=== PATIENT | male | born 1965 | race African-American/Black ===

== ENCOUNTER 2018-11-07 08:21 | Inpatient (IN) | payer OTHER ==
[2018-11-07 09:20] VITALS: BMI 21.8
--- NOTE | 2018-11-07 09:46 | HP ---
COWS - Scale Resting Pulse: 0= [place] 80 or Below Sweatin= Chills/Flushing Restless Observation: 3= Extraneous Movement Pupil Size: 1= Pupils >than Normal Bone or Joint Aches: 2= Severe Diffuse Aches Runny Nose/ Eye Tearin= Runny Nose/Eyes GI Upset > 30mins: 2= Nausea/Diarrhea Tremor Observation: 1= Tremor Xenia, Not Seen Yawning Observation: 1= 1-2x During Session Anxiety or Irritability: 2=Irritable/Anxious Goose Flesh Skin: 0=Smooth Skin COWS Score: 15 CIWA Score - Admission Criteria OASAS Guidelines: Admission for Medically Managed Detox: Requires at least one of the followin. CIWA greater than 12 2. Seizures within the past 24 hours 3. Delirium tremens within the past 24 hours 4. Hallucinations within the past 24 hours 5. Acute intervention needed for co occurring medical disorder 6. Acute intervention needed for co occurring psychiatric disorder 7. Severe withdrawal that cannot be handled at a lower level of care (continued vomiting, continued diarrhea, abnormal vital signs) requiring intravenous medication and/or fluids 8. Admission ROS S - HPI Chief Complaint: i need help help to stop using heroin Allergies/Adverse Reactions: Allergies Allergy/AdvReac Type Severity Reaction Status Date / Time lactose Allergy Verified 11/07/18 10:14 No Known Drug Allergies Allergy Verified 11/07/18 10:15 History of Present Illness: this 52 years old male with heroin dependence,seeking detox,withdrawal symptom, never been in detox before, hypertension on med nicotine dependence 1 pack/day, plan out patient program after detox Exam Limitations: No Limitations - Ebola screening Have you traveled outside of the country in the last 21 days: No (N) Have you had contact with anyone from an Ebola affected area: No Do you have a fever: No - Review of Systems Constitutional: Chills, Loss of Appetite, Malaise, Night Sweats, Changes in sleep, Weakness, Unintentional Wgt. Loss EENT: reports: Tearing, Nose Congestion Respiratory: reports: No Symptoms reported Cardiac: reports: No Symptoms Reported, Other (implanted defibrillator in 2013) GI: reports: Nausea, Poor Appetite, Vomiting, Abdominal cramping : reports: No Symptoms Reported Musculoskeletal: reports: Back Pain, Muscle Pain Integumentary: reports: Dryness Neuro: reports: Headache, Tremors Endocrine: reports: No Symptoms Reported Hematology: reports: No Symptoms Reported Psychiatric: reports: No Sypmtoms Reported, Judgement Intact, Mood/Affect Appropiate, Orientated x3 Patient History - Patient Medical History Hx Anemia: No Hx Asthma: No Hx Chronic Obstructive Pulmonary Disease (COPD): No Hx Cancer: No Hx Cardiac Disorders: Yes (cardiomyopathy,implanted defibrillator) Hx Congestive Heart Failure: No Hx Hypertension: Yes Hx Hypercholesterolemia: Yes HX Cerebrovascular Accident: Yes (06/2014 left side) Hx Seizures: No Hx Dementia: No Hx Diabetes: No Hx Gastrointestinal Disorders: No Hx Liver Disease: No Hx Genitourinary Disorders: No Hx Sexually Transmitted Disorders: No Hx Renal Disease (ESRD): No Hx Thyroid Disease: No Hx Human Immunodeficiency Virus (HIV): No (last 09/12) Hx Hepatitis C: No Hx Depression: No Hx Suicide Attempt: No Hx Bipolar Disorder: No Hx Schizophrenia: No Other Medical History: no suicidal,no homicidal - Patient Surgical History Past Surgical History: Yes Hx Orthopedic Surgery: Yes (right shuolder ) Anesthesia Reaction: No - PPD History Previous Implant?: Yes Documented Results: Negative w/o proof Implanted On Prior [facility] Admission?: No PPD to be Administered?: Yes - Smoking Cessation Smoking history: Current every day smoker Have you smoked in the past 12 months: Yes Aproximately how many cigarettes per day: 20 Hx Chewing Tobacco Use: No Initiated information on smoking cessation: Yes 'Breaking Loose' booklet given: 11/07/18 - Substance & Tx. History Hx Alcohol Use: No Hx Substance Use: Yes Substance Use Type: Heroin Hx Substance Use Treatment: No - Substances abused Heroin Substance route: Inhalation Frequency: Daily Amount used: half a gram Age of first use: 20 Date of last use: 11/06/18 Family Disease History - Family Disease History Family History: Denies Admission Physical Exam BHS - Vital Signs Vital Signs: Vital Signs - 24 hr 11/07/18 11/07/18 09:12 09:27 Temperature 97.5 F L 97.5 F L Pulse Rate 66 66 Respiratory 16 16 Rate Blood Pressure 131/89 131/89 - Physical General Appearance: Yes: Moderate Distress, Tremorous, Irritable, Sweating, Anxious HEENTM: Yes: Normal ENT Inspection, MAILE, Tm's normal Respiratory: Yes: Within Normal Limits, Lungs Clear, Normal Breath Sounds Neck: Yes: Within Normal Limits, Supple, Trachea in good position Breast: Yes: Within Normal Limits Cardiology: Yes: Within Normal Limits, Regular Rhythm, Regular Rate, S1, S2, Other (implanted defibrillatior in 2013) Abdominal: Yes: Within Normal Limits, Normal Bowel Sounds, Non Tender, Flat, Soft Genitourinary: Yes: Within Normal Limits Back: Yes: Within Normal Limits Musculoskeletal: Yes: Back pain, Muscle Pain Extremities: Yes: Tremors, Other (removal of skin cancer in 2015 left index) Neurological: Yes: spice mixer II-XII NML intact, Fully Oriented, Alert, Motor Strength 5/5 Integumentary: Yes: Dry, Other Lymphatic: Yes: Within Normal Limits - Diagnostic (1) Opioid dependence with withdrawal Current Visit: Yes Status: Acute (2) Essential hypertension Current Visit: Yes Status: Acute (3) Nicotine dependence Current Visit: Yes Status: Acute (4) Weight loss Current Visit: Yes Status: Acute (5) Dehydration Current Visit: Yes Status: Acute (6) Old cerebrovascular accident (CVA) without late effect Current Visit: Yes Status: Acute (7) Cardiac defibrillator in place Current Visit: Yes Status: Acute (8) History of skin cancer Current Visit: Yes Status: Acute Cleared for Admission S - Detox or Rehab [facility] Level of Care: Medically Managed Detox Regimen/Protocol: Methadone Breathalyzer - Breathalyzer Breathalyzer: 0 Urine Drug Screen - Test Device Lot number: [id number] Expiration date: 06/23/20 - Control Is test valid?: Yes - Results Drug screen NEGATIVE: No Urine drug screen results: DALTON-Cocaine, MOP-Opiates Inpatient Rehab Admission - Rehab Decision to Admit Inpatient rehab admission?: No
[2018-11-07] MEDS ORDERED: BISMUTH SUBSALICYLATE 262 MG/15 ML BTL PO PRN (10:00)
[2018-11-07] MEDS ORDERED: cloNIDine HCL 0.1 MG TABLET PO PRN (10:00)
[2018-11-07] MEDS ORDERED: MENTHOL/PHENOL 1 EACH UD MM PRN (10:00)
[2018-11-07] MEDS ORDERED: hydrOXYzine PAMOATE 25 MG CAPSULE (FP) PO PRN (10:00)
[2018-11-07] MEDS ORDERED: ACETAMINOPHEN 325 MG TABLET (FP) PO PRN ×2 (10:00)
[2018-11-07] MEDS ORDERED: METHOCARBAMOL 500 MG TABLET PO PRN (10:00)
[2018-11-07] MEDS ORDERED: MAGNESIUM HYDROX 2400MG/30ML ORAL SUSPENSION 30 ML CUP PO PRN (10:00)
[2018-11-07] MEDS ORDERED: MAG HYDROX/AL HYDROX/SIMETH 30 ML UNIT-DOSE CUP PO PRN (10:00)
[2018-11-07] MEDS ORDERED: MAGNESIUM CITRATE 300 ML BOTTLE PO PRN (10:00)
[2018-11-07] MEDS ORDERED: IBUPROFEN 400 MG TABLET (FP) PO PRN (10:00)
[2018-11-07] MEDS ORDERED: METHADONE HCL 10 MG TABLET (FOR DETOX USE ONLY) PO ONE ×2 (10:30→23:00)
--- NOTE | 2018-11-07 10:55 | EKG ---
Test Reason : Blood Pressure : / mmHG Vent. Rate : 056 BPM Atrial Rate : 056 BPM P-R Int : 174 ms QRS Dur : 090 ms QT Int : 430 ms P-R-T Axes : 062 016 040 degrees QTc Int : 414 ms SINUS BRADYCARDIA OTHERWISE NORMAL ECG WHEN COMPARED WITH ECG OF 06-JUL-2014 20:12, ST NO LONGER DEPRESSED IN INFERIOR LEADS ST NO LONGER DEPRESSED IN LATERAL LEADS T WAVE INVERSION NO LONGER EVIDENT IN LATERAL LEADS Confirmed by MD Renetta, Rigo ([id number]) on 11/07/2018 10:55:46 AM Referred By: Confirmed By:Rigo Jackson MD
[2018-11-07] MEDS: PRENATAL VITAMINS W/ FOLIC ACID TABLET (FP) PO SCH (10:59)
[2018-11-07 15:39] LABS: SICKLE CELL SCREEN NEGATIVE (NEGATIVE)
[2018-11-07 15:48] LABS: INR 1.08 (0.83-1.09); PROTHROMBIN TIME (PATIENT) 12.7 SEC (9.7-13.0)
[2018-11-07 15:49] LABS: ALBUMIN 3.7 g/dl (3.4-5.0); ALK PHOS 51 U/L (45-117); ANION GAP 3 MMOL/L (8-16); BILIRUBIN,TOTAL 0.6 mg/dL (0.2-1); BLOOD UREA NITROGEN 15 mg/dL (7-18); CALCIUM 9.3 mg/dL (8.5-10.1); CHLORIDE 103 mmol/L (98-107); CO2 31 mmol/L (21-32); CREATININE 1.1 mg/dL (0.55-1.3); GLUCOSE,RANDOM 92 mg/dL (74-106); POTASSIUM 3.7 mmol/L (3.5-5.1); SGOT/AST 12 U/L (15-37); SGPT/ALT 18 U/L (13-61); SODIUM 138 mmol/L (136-145)
[2018-11-07] MEDS: NICOTINE POLACRILEX 2 MG GUM BUC PRN (17:51)
[2018-11-07] MEDS ORDERED: WARFARIN NA 5 MG TABLET (UD) PO SCH (18:00)
[2018-11-07 18:30] LABS: HEMATOCRIT 40.5 % (35.4-49); HEMOGLOBIN 13.5 GM/dL (11.7-16.9); MCH 31.3 pg (25.7-33.7); MCHC 33.4 g/dl (32.0-35.9); MEAN CELL VOLUME 93.6 fl (80-96); MEAN PLT VOLUME 8.3 fl (7.5-11.1); PLATELET COUNT 191 K/MM3 (134-434); RBC 4.33 M/mm3 (4.00-5.60); RDW 13.5 % (11.9-15.9); WHITE BLOOD COUNT 4.6 K/mm3 (4.0-10.0)
[2018-11-07] MEDS: THIAMINE HCL 100 MG TABLET (FP) PO SCH (22:08)
[2018-11-07] MEDS: diazePAM 5 MG TABLET PO PRN (22:09)
[2018-11-08] MEDS: diazePAM 5 MG TABLET PO PRN ×2 (08:47→13:30)
[2018-11-08] MEDS ORDERED: METHADONE HCL 10 MG TABLET (FOR DETOX USE ONLY) PO ONE (10:00)
[2018-11-08] MEDS: PRENATAL VITAMINS W/ FOLIC ACID TABLET (FP) PO SCH (10:15)
[2018-11-08] MEDS: ASPIRIN 81 MG CHEWABLE TABLETS PO SCH (10:15)
[2018-11-08] MEDS: LISINOPRIL 10 MG TABLET (FP) PO SCH (10:16)
[2018-11-08] MEDS: NICOTINE POLACRILEX 2 MG GUM BUC PRN (13:27)
--- NOTE | 2018-11-08 14:46 | PN ---
BHS COWS - Scale Resting Pulse: 0= [place] 80 or Below Sweatin= Chills/Flushing Restless Observation: 0= Sits Still Pupil Size: 1= Pupils >than Normal Bone or Joint Aches: 1= Mild Discomfort Runny Nose/ Eye Tearin= Nasal Congestion GI Upset > 30mins: 1= Stomach Cramp Tremor Observation of Outstretched Hands: 2= Slight Tremor Visible Yawning Observation: 2= >3x During Session Anxiety or Irritability: 2=Irritable/Anxious Goose Flesh Skin: 0=Smooth Skin COWS Score: 11 BHS Progress Note (SOAP) Subjective: patient stated that he is living at [place] came to [place] 'Month" ago patient has a primary care provider at [place] x 3 years compliance with medication patient has defebrilator implanted on 2013 treated with coumadin but months ago his primary care provider change to eliquis 5 mg bid and he is taking that ever since tolerate well Objective: 11/08/18 15:16 Vital Signs Temperature 97.7 F 11/08/18 13:15 Pulse Rate 55 L 11/08/18 13:15 Respiratory Rate 18 11/08/18 13:15 Blood Pressure 137/96 11/08/18 13:15 O2 Sat by Pulse Oximetry (%) Laboratory Last Values WBC 4.6 K/mm3 (4.0-10.0) 11/07/18 10:00 RBC 4.33 M/mm3 (4.00-5.60) 11/07/18 10:00 Hgb 13.5 GM/dL (11.7-16.9) 11/07/18 10:00 Hct 40.5 % (35.4-49) 11/07/18 10:00 MCV 93.6 fl (80-96) 11/07/18 10:00 MCH 31.3 pg (25.7-33.7) 11/07/18 10:00 MCHC 33.4 g/dl (32.0-35.9) 11/07/18 10:00 RDW 13.5 % (11.9-15.9) D 11/07/18 10:00 Plt Count 191 K/MM3 (134-434) 11/07/18 10:00 MPV 8.3 fl (7.5-11.1) D 11/07/18 10:00 Sickle Cell Screen Negative (NEGATIVE) 11/07/18 10:00 PT with INR 12.70 SEC (9.7-13.0) 11/07/18 10:00 INR 1.08 (0.83-1.09) 11/07/18 10:00 Sodium 138 mmol/L (136-145) 11/07/18 10:00 Potassium 3.7 mmol/L (3.5-5.1) 11/07/18 10:00 Chloride 103 mmol/L (98-107) 11/07/18 10:00 Carbon Dioxide 31 mmol/L (21-32) 11/07/18 10:00 Anion Gap 3 MMOL/L (8-16) L 11/07/18 10:00 BUN 15 mg/dL (7-18) 11/07/18 10:00 Creatinine 1.1 mg/dL (0.55-1.3) 11/07/18 10:00 Creat Clearance w eGFR 70.29 (>60) 11/07/18 10:00 Random Glucose 92 mg/dL (74-106) 11/07/18 10:00 Calcium 9.3 mg/dL (8.5-10.1) 11/07/18 10:00 Total Bilirubin 0.6 mg/dL (0.2-1) 11/07/18 10:00 AST 12 U/L (15-37) L 11/07/18 10:00 ALT 18 U/L (13-61) 11/07/18 10:00 Alkaline Phosphatase 51 U/L (45-117) 11/07/18 10:00 Total Protein 7.0 g/dl (6.4-8.2) 11/07/18 10:00 Albumin 3.7 g/dl (3.4-5.0) 11/07/18 10:00 RPR Titer Nonreactive (NONREACTIVE) 11/07/18 10:00 lab noted Assessment: 11/08/18 15:16 withdrawal sx Plan: continue detox
[2018-11-08] MEDS ORDERED: ASPIRIN 81 MG CHEWABLE TABLETS PO SCH (15:00)
[2018-11-08] MEDS: metoPROLOL SUCCINATE 25 MG TAB.SR.24H (FP) PO SCH (15:53)
[2018-11-08] MEDS: MELATONIN 5 MG TABLETS PO PRN (22:05)
[2018-11-08] MEDS: THIAMINE HCL 100 MG TABLET (FP) PO SCH (22:05)
[2018-11-08] MEDS: APIXABAN 5 MG TABLET PO SCH (22:05)
[2018-11-09] MEDS ORDERED: METHADONE HCL 10 MG TABLET (FOR DETOX USE ONLY) PO ONE (10:00)
[2018-11-09] MEDS: ASPIRIN 81 MG CHEWABLE TABLETS PO SCH (10:25)
[2018-11-09] MEDS: LISINOPRIL 10 MG TABLET (FP) PO SCH (10:25)
[2018-11-09] MEDS: metoPROLOL SUCCINATE 25 MG TAB.SR.24H (FP) PO SCH (10:25)
[2018-11-09] MEDS: PRENATAL VITAMINS W/ FOLIC ACID TABLET (FP) PO SCH (10:25)
[2018-11-09] MEDS: diazePAM 5 MG TABLET PO PRN ×2 (10:27→19:59)
[2018-11-09] MEDS: APIXABAN 5 MG TABLET PO SCH ×2 (11:22→21:28)
[2018-11-09] MEDS: NICOTINE POLACRILEX 2 MG GUM BUC PRN (11:24)
--- NOTE | 2018-11-09 12:26 | PN ---
BHS COWS - Scale Resting Pulse: 0= [place] 80 or Below Sweatin= Chills/Flushing Restless Observation: 0= Sits Still Pupil Size: 0= Normal to Room Light Bone or Joint Aches: 0= None Runny Nose/ Eye Tearin= Nasal Congestion GI Upset > 30mins: 0= None Tremor Observation of Outstretched Hands: 2= Slight Tremor Visible Yawning Observation: 1= 1-2x During Session Anxiety or Irritability: 2=Irritable/Anxious Goose Flesh Skin: 3=Piloerection COWS Score: 10 BHS Progress Note (SOAP) Subjective: hot / Cold Sensations, Interrupted Sleep, Tremors. Objective: PATIENT A & O X 2 (UNCERTAIN ABOUT CURRENT DAY / DATE). IN NO ACUTE DISTRESS. 11/09/18 12:24 Vital Signs Temperature 97.8 F 11/09/18 09:17 Pulse Rate 74 11/09/18 09:17 Respiratory Rate 18 11/09/18 09:17 Blood Pressure 125/86 11/09/18 09:17 O2 Sat by Pulse Oximetry (%) Laboratory Tests 11/07/18 11/07/18 11/07/18 10:00 10:00 10:00 WBC 4.6 RBC 4.33 Hgb 13.5 Hct 40.5 MCV 93.6 MCH 31.3 MCHC 33.4 RDW 13.5 D Plt Count 191 MPV 8.3 D Sickle Cell Screen Negative PT with INR 12.70 INR 1.08 Sodium 138 Potassium 3.7 Chloride 103 Carbon Dioxide 31 Anion Gap 3 L BUN 15 Creatinine 1.1 Creat Clearance w eGFR 70.29 Random Glucose 92 Calcium 9.3 Total Bilirubin 0.6 AST 12 L ALT 18 Alkaline Phosphatase 51 Total Protein 7.0 Albumin 3.7 RPR Titer 11/07/18 10:00 WBC RBC Hgb Hct MCV MCH MCHC RDW Plt Count MPV Sickle Cell Screen PT with INR INR Sodium Potassium Chloride Carbon Dioxide Anion Gap BUN Creatinine Creat Clearance w eGFR Random Glucose Calcium Total Bilirubin AST ALT Alkaline Phosphatase Total Protein Albumin RPR Titer Nonreactive LABS NOTED. Assessment: 11/09/18 12:25 WITHDRAWAL SYMPTOMS. Plan: CONTINUE DETOX. INCREASE DAILY PO FLUID INTAKE.
[2018-11-09] MEDS: MELATONIN 5 MG TABLETS PO PRN (21:28)
[2018-11-09] MEDS: THIAMINE HCL 100 MG TABLET (FP) PO SCH (21:29)
[2018-11-10] MEDS ORDERED: METHADONE HCL 10 MG TABLET (FOR DETOX USE ONLY) PO ONE (10:00)
[2018-11-10] MEDS: LISINOPRIL 10 MG TABLET (FP) PO SCH (10:10)
[2018-11-10] MEDS: ASPIRIN 81 MG CHEWABLE TABLETS PO SCH (10:10)
[2018-11-10] MEDS: metoPROLOL SUCCINATE 25 MG TAB.SR.24H (FP) PO SCH (10:10)
[2018-11-10] MEDS: PRENATAL VITAMINS W/ FOLIC ACID TABLET (FP) PO SCH (10:10)
[2018-11-10] MEDS: APIXABAN 5 MG TABLET PO SCH ×2 (10:11→22:14)
--- NOTE | 2018-11-10 13:20 | PN ---
BHS COWS - Scale Resting Pulse: 0= [place] 80 or Below Sweatin= No chills or Flushing Restless Observation: 0= Sits Still Pupil Size: 0= Normal to Room Light Bone or Joint Aches: 0= None Runny Nose/ Eye Tearin= None GI Upset > 30mins: 0= None Tremor Observation of Outstretched Hands: 2= Slight Tremor Visible Yawning Observation: 1= 1-2x During Session Anxiety or Irritability: 2=Irritable/Anxious Goose Flesh Skin: 0=Smooth Skin COWS Score: 5 BHS Progress Note (SOAP) Subjective: Anxious, Tremors (Mild, Improving), Fatigue. Objective: PATIENT A & O X 3. IN NO ACUTE DISTRESS. 11/10/18 13:18 Vital Signs Temperature 98.7 F 11/10/18 13:06 Pulse Rate 65 11/10/18 13:06 Respiratory Rate 18 11/10/18 13:06 Blood Pressure 114/80 11/10/18 13:06 O2 Sat by Pulse Oximetry (%) Laboratory Tests 11/07/18 11/07/18 11/07/18 10:00 10:00 10:00 WBC 4.6 RBC 4.33 Hgb 13.5 Hct 40.5 MCV 93.6 MCH 31.3 MCHC 33.4 RDW 13.5 D Plt Count 191 MPV 8.3 D Sickle Cell Screen Negative PT with INR 12.70 INR 1.08 Sodium 138 Potassium 3.7 Chloride 103 Carbon Dioxide 31 Anion Gap 3 L BUN 15 Creatinine 1.1 Creat Clearance w eGFR 70.29 Random Glucose 92 Calcium 9.3 Total Bilirubin 0.6 AST 12 L ALT 18 Alkaline Phosphatase 51 Total Protein 7.0 Albumin 3.7 RPR Titer 11/07/18 10:00 WBC RBC Hgb Hct MCV MCH MCHC RDW Plt Count MPV Sickle Cell Screen PT with INR INR Sodium Potassium Chloride Carbon Dioxide Anion Gap BUN Creatinine Creat Clearance w eGFR Random Glucose Calcium Total Bilirubin AST ALT Alkaline Phosphatase Total Protein Albumin RPR Titer Nonreactive LABS NOTED. Assessment: 11/10/18 13:19 WITHDRAWAL SYMPTOMS. Plan: CONTINUE DETOX. PATIENT SCHEDULED FOR D/C TOMORROW.
[2018-11-10] MEDS: THIAMINE HCL 100 MG TABLET (FP) PO SCH (22:14)
[2018-11-10] MEDS: MELATONIN 5 MG TABLETS PO PRN (22:14)
[2018-11-11] MEDS ORDERED: METHADONE HCL 5 MG TABLET (FOR DETOX USE ONLY) PO ONE (06:00)
[2018-11-11 06:01] VITALS: BP 131/88; PULSE 61; TEMP 98
--- NOTE | 2018-11-11 17:48 | DS ---
[facility] Detox Discharge Summary Admission Date: 11/07/18 Discharge Date: 11/11/18 - History Present History: Opioid Dependence Additional Comments: PATIENT REPORTS THAT HE INTENDS TO MOVE TO [facility] IN THE NEXT FEW WEEKS. PATIENT ADVISED TO CONSIDER LOCAL 12-STEP / NA OUTPATIENT SUPPORT GROUPS IN HIS LOCAL AREA AFTER HE IS SITUATED IN NEW LOCATION IN [place]. PATIENT VERBALIZED UNDERSTANDING OF RECOMMENDATION. PATIENT DECLINED OFFER OF MEDICATION PRESCRIPTION FOR HOME MEDICATION AT TIME OF DISCHARGE FROM DETOX, NOTING THAT HE CURRENTLY HAS ADEQUATE SUPPLIES OF ALL PRESCRIBED HOME MEDICATIONS AT HOME. PATIENT WAS DISCHARGED FROM DETOX UNIT IN STABLE MEDICAL CONDITION. Pertinent Past History: HTN, Hypercholesterolemia, History Of Cardiomyopathy, Cardiac Defibrillator In Place, History Of CVA (Left Side Of body Affected), Nicotine Dependence, Weight Loss, Dehydration, History of Skin Cancer. - Physical Exam Results Vital Signs: Vital Signs Temperature 98 F 11/11/18 06:01 Pulse Rate 61 11/11/18 06:01 Respiratory Rate 18 11/11/18 06:23 Blood Pressure 131/88 11/11/18 06:01 O2 Sat by Pulse Oximetry (%) Pertinent Admission Physical Exam Findings: WITHDRAWAL SYMPTOMS. Laboratory Tests 11/07/18 11/07/18 11/07/18 10:00 10:00 10:00 WBC 4.6 RBC 4.33 Hgb 13.5 Hct 40.5 MCV 93.6 MCH 31.3 MCHC 33.4 RDW 13.5 D Plt Count 191 MPV 8.3 D Sickle Cell Screen Negative PT with INR 12.70 INR 1.08 Sodium 138 Potassium 3.7 Chloride 103 Carbon Dioxide 31 Anion Gap 3 L BUN 15 Creatinine 1.1 Creat Clearance w eGFR 70.29 Random Glucose 92 Calcium 9.3 Total Bilirubin 0.6 AST 12 L ALT 18 Alkaline Phosphatase 51 Total Protein 7.0 Albumin 3.7 RPR Titer 11/07/18 10:00 WBC RBC Hgb Hct MCV MCH MCHC RDW Plt Count MPV Sickle Cell Screen PT with INR INR Sodium Potassium Chloride Carbon Dioxide Anion Gap BUN Creatinine Creat Clearance w eGFR Random Glucose Calcium Total Bilirubin AST ALT Alkaline Phosphatase Total Protein Albumin RPR Titer Nonreactive LABS NOTED. - Treatment Hospital Course: Detox Protocol Followed, Detoxed Safely, Responded well, Discharged Condition Good Patient has Accepted a Rehab Referral to: PT. MOVING TO [place]-ADVISED TO CONSIDER LOCAL 12-STEP/NA PROGRAMS - Medication Discharge Medications: Ambulatory Orders Lisinopril [Prinivil] 10 mg PO DAILY #30 tablet 07/05/14 Warfarin Na [Coumadin -] 5 mg PO DAILY@1800 #30 tablet 07/05/14 Aspirin [ASA -] 81 mg PO DAILY 11/07/18 Apixaban [Eliquis -] 5 mg PO BID 11/08/18 Metoprolol Succinate [Toprol Xl -] 25 mg PO DAILY 11/08/18 - Diagnosis (1) Cardiac defibrillator in place Status: Acute (2) Dehydration Status: Acute (3) HTN (hypertension) Status: Acute Qualifiers: Hypertension type: unspecified Qualified Code(s): I10 - Essential (primary ) hypertension (4) History of skin cancer Status: Acute (5) Old cerebrovascular accident (CVA) without late effect Status: Acute (6) Opioid dependence with withdrawal Status: Acute (7) Weight loss Status: Acute (8) Nicotine dependence Status: Acute Qualifiers: Nicotine product type: cigarettes Substance use status: uncomplicated Qualified Code(s): F17.210 - Nicotine dependence, cigarettes, uncomplicated - AMA Did Patient Leave Against Medical Advice: No
== END 2018-11-11 09:05 | disposition home or self-care (01) | DRG 773 ==
LOC: YASAS 08:21 → Y3N 10:14
PROVIDERS: ADMIT Surgery; ATTEND Surgery
PROC: HZ2ZZZZ Detoxification Services for Substance Abuse Treatment (ICD-10-PCS; principal; 2018-11-07)
DX: F11.23 Opioid dependence with withdrawal (principal); F17.210 Nicotine dependence, cigarettes, uncomplicated; E86.0 Dehydration; I10 Essential (primary) hypertension; R63.4 Abnormal weight loss; I42.9 Cardiomyopathy, unspecified; E78.00 Pure hypercholesterolemia, unspecified; Z85.828 Personal history of other malignant neoplasm of skin; Z86.73 Personal history of transient ischemic attack (TIA), and cerebral infarction without residual deficits; Z95.810 Presence of automatic (implantable) cardiac defibrillator
CPT/HCPCS: 36415; 80053; 85027; 85610; 85660; 86593; 93005; 93010

== ENCOUNTER 2019-01-11 08:30 | Inpatient (IN) | payer OTHER ==
[2019-01-11 09:42] VITALS: BMI 22.6
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
[2019-01-11] MEDS ORDERED: MAGNESIUM CITRATE 300 ML BOTTLE PO PRN (11:25)
[2019-01-11] MEDS ORDERED: MELATONIN 5 MG TABLETS PO PRN (11:25)
[2019-01-11] MEDS ORDERED: MAGNESIUM HYDROX 2400MG/30ML ORAL SUSPENSION 30 ML CUP PO PRN (11:25)
[2019-01-11] MEDS ORDERED: MENTHOL/PHENOL 1 EACH UD MM PRN (11:25)
[2019-01-11] MEDS ORDERED: ACETAMINOPHEN 325 MG TABLET (FP) PO PRN ×2 (11:25)
[2019-01-11] MEDS ORDERED: MAG HYDROX/AL HYDROX/SIMETH 30 ML UNIT-DOSE CUP PO PRN (11:25)
[2019-01-11] MEDS ORDERED: NICOTINE POLACRILEX 2 MG GUM BUC PRN (11:25)
[2019-01-11] MEDS ORDERED: METHADONE HCL 10 MG TABLET (FOR DETOX USE ONLY) PO ONE (11:28)
[2019-01-11] MEDS: HYDROCHLOROTHIAZIDE 12.5 MG CAPSULE (FP) PO SCH (12:35)
[2019-01-11] MEDS: LISINOPRIL 20 MG TABLET (FP) PO SCH (12:35)
[2019-01-11] MEDS: ASPIRIN 81 MG CHEWABLE TABLETS PO SCH (12:35)
[2019-01-11] MEDS: APIXABAN 5 MG TABLET PO SCH ×2 (14:34→21:28)
[2019-01-11] MEDS: cloNIDine HCL 0.1 MG TABLET PO PRN ×2 (15:05→21:28)
[2019-01-11] MEDS: THIAMINE HCL 100 MG TABLET (FP) PO SCH (21:28)
[2019-01-11] MEDS: hydrOXYzine PAMOATE 25 MG CAPSULE (FP) PO PRN (21:28)
[2019-01-12] MEDS: hydrOXYzine PAMOATE 25 MG CAPSULE (FP) PO PRN ×2 (05:40→21:49)
[2019-01-12] MEDS ORDERED: METHADONE HCL 5 MG TABLET (FOR DETOX USE ONLY) PO ONE (10:00)
[2019-01-12] MEDS: ASPIRIN 81 MG CHEWABLE TABLETS PO SCH (10:22)
[2019-01-12] MEDS: LISINOPRIL 20 MG TABLET (FP) PO SCH (10:23)
[2019-01-12] MEDS: PRENATAL VITAMINS W/ FOLIC ACID TABLET (FP) PO SCH (10:23)
[2019-01-12] MEDS: HYDROCHLOROTHIAZIDE 12.5 MG CAPSULE (FP) PO SCH (10:23)
[2019-01-12] MEDS ORDERED: ONDANSETRON *ODT* 4 MG TABLET SL PRN (10:41)
--- NOTE | 2019-01-12 11:09 | PN ---
BHS COWS - Scale Resting Pulse: 0= [place] 80 or Below Sweatin= Chills/Flushing Restless Observation: 1= Difficult to Sit Still Pupil Size: 0= Normal to Room Light Bone or Joint Aches: 2= Severe Diffuse Aches Runny Nose/ Eye Tearin= Runny Nose/Eyes GI Upset > 30mins: 0= None Tremor Observation of Outstretched Hands: 2= Slight Tremor Visible Yawning Observation: 2= >3x During Session Anxiety or Irritability: 2=Irritable/Anxious Goose Flesh Skin: 0=Smooth Skin COWS Score: 12 BHS Progress Note (SOAP) Subjective: sweats nausea chills anxiety interrupted sleep. i need something to help me fall asleep Objective: 01/12/19 11:09 Vital Signs Temperature 97.7 F 01/12/19 10:00 Pulse Rate 63 01/12/19 10:00 Respiratory Rate 18 01/12/19 10:00 Blood Pressure 121/72 01/12/19 10:00 O2 Sat by Pulse Oximetry (%) labs pending aaox3 ambulating no acute distress Assessment: 01/12/19 11:10 withdrawal sx Plan: continue detox increase fluids trazadone 50mg qhs ordered while in our care.
[2019-01-12 11:52] LABS: HEMATOCRIT 36.6 % (35.4-49); HEMOGLOBIN 12.2 GM/dL (11.7-16.9); MCH 30.4 pg (25.7-33.7); MCHC 33.2 g/dl (32.0-35.9); MEAN CELL VOLUME 91.7 fl (80-96); MEAN PLT VOLUME 9.1 fl (7.5-11.1); PLATELET COUNT 193 K/MM3 (134-434); RBC 3.99 M/mm3 (4.00-5.60); RDW 14.2 % (11.9-15.9); WHITE BLOOD COUNT 3.4 K/mm3 (4.0-10.0)
[2019-01-12 12:15] LABS: ALBUMIN 3.5 g/dl (3.4-5.0); BILIRUBIN,TOTAL 0.4 mg/dL (0.2-1); CALCIUM 8.8 mg/dL (8.5-10.1); CREATININE 0.9 mg/dL (0.55-1.3); POTASSIUM 4.3 mmol/L (3.5-5.1); TOT PROT 6.5 g/dl (6.4-8.2)
[2019-01-12] MEDS: APIXABAN 5 MG TABLET PO SCH ×2 (14:23→21:48)
[2019-01-12] MEDS: cloNIDine HCL 0.1 MG TABLET PO PRN (21:48)
[2019-01-12] MEDS ORDERED: traZODone HCL 50 MG TABLET (FP) PO SCH (22:00)
[2019-01-12] MEDS: THIAMINE HCL 100 MG TABLET (FP) PO SCH (22:46)
[2019-01-13] MEDS: hydrOXYzine PAMOATE 25 MG CAPSULE (FP) PO PRN (06:20)
[2019-01-13 09:55] VITALS: TEMP 97.3
[2019-01-13] MEDS ORDERED: METHADONE HCL 10 MG TABLET (FOR DETOX USE ONLY) PO ONE (10:00)
[2019-01-13] MEDS: HYDROCHLOROTHIAZIDE 12.5 MG CAPSULE (FP) PO SCH (10:21)
[2019-01-13] MEDS: PRENATAL VITAMINS W/ FOLIC ACID TABLET (FP) PO SCH (10:22)
[2019-01-13] MEDS: APIXABAN 5 MG TABLET PO SCH (10:23)
[2019-01-13] MEDS: LISINOPRIL 20 MG TABLET (FP) PO SCH (10:23)
[2019-01-13] MEDS: ASPIRIN 81 MG CHEWABLE TABLETS PO SCH (10:24)
--- NOTE | 2019-01-13 12:36 | PN ---
BHS COWS - Scale Resting Pulse: 0= [place] 80 or Below Sweatin= Chills/Flushing Restless Observation: 1= Difficult to Sit Still Pupil Size: 0= Normal to Room Light Bone or Joint Aches: 1= Mild Discomfort Runny Nose/ Eye Tearin= None GI Upset > 30mins: 2= Nausea/Diarrhea Tremor Observation of Outstretched Hands: 0= None Yawning Observation: 0= None Anxiety or Irritability: 1=Feels Anxious/Irritable Goose Flesh Skin: 0=Smooth Skin COWS Score: 6 BHS Progress Note (SOAP) Subjective: PATIENT C/O MILD NAUSEA, ANXIETY, RESTLESS. PATIENT STATES " I AM D/C TOMORROW AND GOING BACK TO [place]. PATIENT STATE HE LIVES THERE AND HAS MEDICATION IN HIS PROPERTY. REPORTS FEELING BETTER BUT IS DISAPPOINTED HE RELAPSED. Objective: 01/13/19 12:35 Vital Signs Temperature 97.3 F L 01/13/19 09:54 Pulse Rate 59 L 01/13/19 09:54 Respiratory Rate 17 01/13/19 09:54 Blood Pressure 146/81 01/13/19 09:54 O2 Sat by Pulse Oximetry (%) Laboratory Tests 01/12/19 01/12/19 01/12/19 07:00 07:00 07:00 WBC 3.4 L RBC 3.99 L Hgb 12.2 Hct 36.6 MCV 91.7 MCH 30.4 MCHC 33.2 RDW 14.2 Plt Count 193 MPV 9.1 Sodium 140 Potassium 4.3 Chloride 105 Carbon Dioxide 29 Anion Gap 6 L BUN 9.0 Creatinine 0.9 Est GFR (CKD-EPI)AfAm 112.62 Est GFR (CKD-EPI)NonAf 97.17 Random Glucose 82 Calcium 8.8 Total Bilirubin 0.4 AST 7 L ALT 16 Alkaline Phosphatase 55 Total Protein 6.5 Albumin 3.5 RPR Titer Nonreactive PE: ALERT AND ORIENTED X 3 SKIN WARM AND DRY +PERRLA, EOMS INTACT ANXIOUS MILD RESTLESSNESS Assessment: 01/13/19 12:36 WITHDRAWAL SX Plan: CONTINUE DETOX FOR D/C IN AM
[2019-01-13 14:33] VITALS: BP 137/68; PULSE 55
[2019-01-14] MEDS ORDERED: METHADONE HCL 5 MG TABLET (FOR DETOX USE ONLY) PO ONE (06:00)
== END 2019-01-13 16:40 | disposition home or self-care (01) | DRG 897 ==
LOC: YASAS 08:30 → Y6N 12:08
PROVIDERS: ADMIT Surgery; ATTEND Surgery
PROC: HZ2ZZZZ Detoxification Services for Substance Abuse Treatment (ICD-10-PCS; principal; 2019-01-11)
DX: F11.23 Opioid dependence with withdrawal (principal); I42.9 Cardiomyopathy, unspecified; I69.852 Hemiplegia and hemiparesis following other cerebrovascular disease affecting left dominant side; F17.210 Nicotine dependence, cigarettes, uncomplicated; I10 Essential (primary) hypertension; Z95.810 Presence of automatic (implantable) cardiac defibrillator; Z79.01 Long term (current) use of anticoagulants
CPT/HCPCS: 36415; 80053; 85027; 86593; J0735

== ENCOUNTER 2019-02-10 08:26 | Inpatient (IN) | payer OTHER ==
[2019-02-10 08:57] VITALS: BMI 20.9
--- NOTE | 2019-02-10 09:29 | HP ---
COWS - Scale Resting Pulse: 1= [place] 81-100 Sweatin= Chills/Flushing Restless Observation: 0= Sits Still Pupil Size: 0= Normal to Room Light Bone or Joint Aches: 1= Mild Discomfort Runny Nose/ Eye Tearin= Nasal Congestion GI Upset > 30mins: 1= Stomach Cramp Tremor Observation: 1= Tremor [place], Not Seen Yawning Observation: 1= 1-2x During Session Anxiety or Irritability: 1=Feels Anxious/Irritable Goose Flesh Skin: 0=Smooth Skin COWS Score: 8 Admission ROS S - HPI Chief Complaint: I'm tired of this shit - I want to stop - I want my life back, it was good before. Allergies/Adverse Reactions: Allergies Allergy/AdvReac Type Severity Reaction Status Date / Time ibuprofen Allergy Intermediate Nausea Verified 02/10/19 08:52 lactose Allergy Intermediate Vomiting Verified 02/10/19 08:52 History of Present Illness: 53 yo gentleman here for detox from opiates - previously here in detox 01/11/18. States he was never on any MAT. Denies seizures, no black outs or overdose. Patient reports over 20 years sobriety but had a stroke in 2013, was unable to work and relapsed at that time. States he drinks but only 3 times per week. Noted urine tox + methadone and + oxy - states he does not use these separately nor is he on a methadone program - likely mixed with the heroin. [facility] Others' Prescriptions Patient Name: Mau Gunter Date: 1965 Address: [address] [place] [address] Sex: Male Rx Written Rx Dispensed Drug Quantity Days Supply Prescriber Name 11/14/2018 11/14/2018 oxycodone-acetaminophen 5-325 mg tablet 10 2 Dayron Sorenson Exam Limitations: No Limitations, Clinical Condition - Ebola screening Have you traveled outside of the country in the last 21 days: No (N) Have you had contact with anyone from an Ebola affected area: No Do you have a fever: No - Review of Systems Constitutional: Loss of Appetite, Malaise, Changes in sleep, Weakness EENT: reports: Hearing Loss, Nose Congestion Respiratory: reports: No Symptoms reported Cardiac: reports: No Symptoms Reported GI: reports: Nausea, Poor Appetite, Abdominal cramping : reports: Frequency Musculoskeletal: reports: No Symptoms Reported Integumentary: reports: No Symptoms Reported Neuro: reports: Headache, Tremors, Weakness Endocrine: reports: No Symptoms Reported Hematology: reports: No Symptoms Reported Psychiatric: reports: Judgement Intact, Mood/Affect Appropiate, Orientated x3 Other Systems: Reviewed and Negative Patient History - Patient Medical History Hx Anemia: No Hx Asthma: No Hx Chronic Obstructive Pulmonary Disease (COPD): No Hx Cancer: No (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) Hx Cardiac Disorders: Yes (cardiomyopathy,implanted defibrillator) Hx Congestive Heart Failure: No Hx Hypertension: Yes (on meds) Hx Hypercholesterolemia: Yes HX Cerebrovascular Accident: Yes (06/2014 left side) Hx Seizures: No Hx Dementia: No Hx Diabetes: No Hx Gastrointestinal Disorders: No Hx Liver Disease: No Hx Genitourinary Disorders: Yes (?BPH ) Hx Sexually Transmitted Disorders: No Hx Renal Disease (ESRD): No Hx Thyroid Disease: No Hx Human Immunodeficiency Virus (HIV): No (last 09/12) Hx Hepatitis C: No Hx Depression: No Hx Suicide Attempt: No Hx Bipolar Disorder: No Hx Schizophrenia: No - Patient Surgical History Past Surgical History: Yes Hx Neurologic Surgery: No Hx Cataract Extraction: No Hx Cardiac Surgery: Yes (Implanted defibrillator 2013; excision mediasinal myxoid tumor 2014 at [facility]) Hx Lung Surgery: No Hx Breast Surgery: No Hx Breast Biopsy: No Hx Abdominal Surgery: No Hx Appendectomy: No Hx Cholecystectomy: No Hx Genitourinary Surgery: No Hx Section: No Hx Orthopedic Surgery: Yes (right shuolder ) Anesthesia Reaction: No - PPD History Previous Implant?: Yes Documented Results: Negative w/proof Implanted On Prior [facility] Admission?: Yes Date: 11/09/18 Results: 0mm PPD to be Administered?: No - Reproductive History Patient is a Female of Child Bearing Age (11 -55 yrs old): No - Smoking Cessation Smoking history: Current every day smoker Have you smoked in the past 12 months: Yes Aproximately how many cigarettes per day: 20 If you are a former smoker, when did you quit?: one month ago Hx Chewing Tobacco Use: No Initiated information on smoking cessation: Yes 'Breaking Loose' booklet given: 02/10/19 (give on floor) - Substance & Tx. History Hx Alcohol Use: Yes Hx Substance Use: Yes Substance Use Type: Alcohol, Cocaine, Heroin Hx Substance Use Treatment: Yes (detox) - Substances abused Heroin Substance route: Inhalation Frequency: Daily Amount used: 10 bags a day Age of first use: 20 Date of last use: 02/09/19 Cocaine Substance route: Inhalation Frequency: 1-3 times last 30 days Amount used: 1 line Age of first use: 21 Date of last use: 02/09/19 Alcohol Substance route: Oral Frequency: 3-6 times per week Amount used: 2 shots whiskey Age of first use: 15 Date of last use: 02/09/19 (three times a week) Family Disease History - Family Disease History Family Disease History: Other: Father (, no contact), Mother (living - healthy), Sister (four half sisters - healthy), Son (one age 34 - healthy) Admission Physical Exam [facility] - Vital Signs Vital Signs: Vital Signs - 24 hr 02/10/19 08:54 Temperature 97.2 F L Pulse Rate 78 Respiratory 16 Rate Blood Pressure 139/96 - Physical General Appearance: Yes: Appropriately Dressed, Moderate Distress, Thin, Anxious HEENTM: Yes: EOMI, Normocephalic, Normal Voice, Pharynx Normal, Hearing Decreased, Other (false upper dentures) Respiratory: Yes: Normal Breath Sounds, No Respiratory Distress Neck: Yes: No masses,lesions,Nodules, Trachea in good position Breast: Yes: Breast Exam Deferred Cardiology: Yes: Regular Rhythm, Regular Rate, Surgical Scar, Other (left upper chest with implanted defibrillator) Abdominal: Yes: Flat, Soft Genitourinary: Yes: Frequency, Nocturia Back: Yes: Normal Inspection Musculoskeletal: Yes: full range of Motion, Gait Steady, Back pain, Muscle Pain Extremities: Yes: Normal Inspection, Normal Range of Motion, Non-Tender Neurological: Yes: Fully Oriented, Alert, Normal Mood/Affect, Other (mild left sided weakness) Integumentary: Yes: Normal Color, Warm Lymphatic: Yes: Within Normal Limits - Diagnostic (1) Opioid dependence with withdrawal Current Visit: Yes Status: Acute (2) Anterior mediastinal tumor Current Visit: Yes Status: Resolved Comment: surgery done at [facility] 2014 (3) Cardiac defibrillator in place Current Visit: Yes Status: Chronic (4) HTN (hypertension) Current Visit: No Status: Acute Qualifiers: Hypertension type: unspecified Qualified Code(s): I10 - Essential (primary ) hypertension (5) History of skin cancer Current Visit: Yes Status: Resolved Comment: left index finger (6) Nonischemic cardiomyopathy Current Visit: Yes Status: Acute (7) Old cerebrovascular accident (CVA) without late effect Current Visit: Yes Status: Acute (8) Nicotine dependence Current Visit: No Status: Chronic Qualifiers: Nicotine product type: cigarettes Substance use status: uncomplicated Qualified Code(s): F17.210 - Nicotine dependence, cigarettes, uncomplicated (9) Cocaine abuse Current Visit: Yes Status: Chronic (10) Alcohol consumption two to four days per week Current Visit: Yes Status: Chronic (11) Hearing decreased Current Visit: Yes Status: Chronic Qualifiers: Laterality: bilateral Qualified Code(s): H91.93 - Unspecified hearing loss , bilateral Cleared for Admission S - Detox or Rehab [facility] Level of Care: Medically Managed Detox Regimen/Protocol: Methadone Breathalyzer - Breathalyzer Breathalyzer: 0 Urine Drug Screen - Test Device Lot number: [id number] Expiration date: 11/21/20 - Control Is test valid?: Yes - Results Drug screen NEGATIVE: No Urine drug screen results: DALTON-Cocaine, MOP-Opiates, OXY-Oxycodone, MTD- Methadone Inpatient Rehab Admission - Rehab Decision to Admit Inpatient rehab admission?: No
[2019-02-10] MEDS ORDERED: MAGNESIUM CITRATE 300 ML BOTTLE PO PRN (09:55)
[2019-02-10] MEDS ORDERED: MAG HYDROX/AL HYDROX/SIMETH 30 ML UNIT-DOSE CUP PO PRN (09:55)
[2019-02-10] MEDS ORDERED: METHOCARBAMOL 500 MG TABLET PO PRN (09:55)
[2019-02-10] MEDS ORDERED: MAGNESIUM HYDROX 2400MG/30ML ORAL SUSPENSION 30 ML CUP PO PRN (09:55)
[2019-02-10] MEDS ORDERED: ACETAMINOPHEN 325 MG TABLET (FP) PO PRN ×2 (09:55)
[2019-02-10] MEDS ORDERED: ONDANSETRON *ODT* 4 MG TABLET SL PRN (09:55)
[2019-02-10] MEDS ORDERED: MENTHOL/PHENOL 1 EACH UD MM PRN (09:55)
[2019-02-10] MEDS ORDERED: cloNIDine HCL 0.1 MG TABLET PO PRN (09:55)
[2019-02-10] MEDS: ASPIRIN 81 MG CHEWABLE TABLETS PO SCH (13:28)
[2019-02-10] MEDS: PRENATAL VITAMINS W/ FOLIC ACID TABLET (FP) PO SCH (13:28)
[2019-02-10] MEDS: metoPROLOL SUCCINATE 25 MG TAB.SR.24H (FP) PO SCH (13:28)
[2019-02-10] MEDS: LISINOPRIL 10 MG TABLET (FP) PO SCH (13:28)
[2019-02-10] MEDS ORDERED: METHADONE HCL 10 MG TABLET (FOR DETOX USE ONLY) PO ONE (13:45)
[2019-02-10] MEDS: APIXABAN 5 MG TABLET PO SCH ×2 (14:59→22:36)
[2019-02-10] MEDS: THIAMINE HCL 100 MG TABLET (FP) PO SCH (22:36)
[2019-02-10] MEDS: traZODone HCL 50 MG TABLET (FP) PO PRN (22:37)
[2019-02-11] MEDS ORDERED: METHADONE HCL 10 MG TABLET (FOR DETOX USE ONLY) ONE (09:30)
[2019-02-11] MEDS ORDERED: METHADONE HCL 5 MG TABLET (FOR DETOX USE ONLY) ONE (09:31)
[2019-02-11] MEDS ORDERED: METHADONE (DETOX) 20 MG, METHADONE (DETOX) 5 MG PO ONE (10:00)
[2019-02-11] MEDS: metoPROLOL SUCCINATE 25 MG TAB.SR.24H (FP) PO SCH (10:09)
[2019-02-11] MEDS: PRENATAL VITAMINS W/ FOLIC ACID TABLET (FP) PO SCH (10:09)
[2019-02-11] MEDS: LISINOPRIL 10 MG TABLET (FP) PO SCH (10:09)
[2019-02-11] MEDS: ASPIRIN 81 MG CHEWABLE TABLETS PO SCH (10:09)
[2019-02-11] MEDS: APIXABAN 5 MG TABLET PO SCH ×2 (10:09→22:06)
[2019-02-11 10:43] LABS: ALBUMIN 3.2 g/dl (3.4-5.0); BILIRUBIN,TOTAL 0.6 mg/dL (0.2-1); BLOOD UREA NITROGEN 11.2 mg/dL (7-18); CALCIUM 8.4 mg/dL (8.5-10.1); CREATININE 1.1 mg/dL (0.55-1.3); POTASSIUM 3.4 mmol/L (3.5-5.1); TOT PROT 6.2 g/dl (6.4-8.2)
[2019-02-11 10:51] LABS: HEMATOCRIT 36.3 % (35.4-49); HEMOGLOBIN 12.3 GM/dL (11.7-16.9); MCH 30.8 pg (25.7-33.7); MCHC 33.8 g/dl (32.0-35.9); MEAN CELL VOLUME 90.9 fl (80-96); MEAN PLT VOLUME 8.9 fl (7.5-11.1); PLATELET COUNT 174 K/MM3 (134-434); RDW 14.7 % (11.9-15.9); WHITE BLOOD COUNT 2.9 K/mm3 (4.0-10.0)
[2019-02-11] MEDS: NICOTINE POLACRILEX 4 MG GUM BUC PRN ×2 (12:15→15:56)
--- NOTE | 2019-02-11 16:01 | PN ---
BHS COWS - Scale Resting Pulse: 0= [place] 80 or Below Sweatin= Chills/Flushing Restless Observation: 0= Sits Still Pupil Size: 0= Normal to Room Light Bone or Joint Aches: 1= Mild Discomfort Runny Nose/ Eye Tearin= None GI Upset > 30mins: 1= Stomach Cramp Tremor Observation of Outstretched Hands: 1= Tremor [place], Not Seen Yawning Observation: 0= None Anxiety or Irritability: 1=Feels Anxious/Irritable Goose Flesh Skin: 3=Piloe[place] COWS Score: 8 BHS Progress Note (SOAP) Subjective: tremor sweat body aches Objective: 02/11/19 16:00 Vital Signs Temperature 96.9 F L 02/11/19 13:19 Pulse Rate 48 L 02/11/19 13:19 Respiratory Rate 18 02/11/19 13:19 Blood Pressure 152/98 02/11/19 13:19 O2 Sat by Pulse Oximetry (%) Laboratory Last Values WBC 2.9 K/mm3 (4.0-10.0) L 02/11/19 07:50 RBC 4.00 M/mm3 (4.00-5.60) 02/11/19 07:50 Hgb 12.3 GM/dL (11.7-16.9) 02/11/19 07:50 Hct 36.3 % (35.4-49) 02/11/19 07:50 MCV 90.9 fl (80-96) 02/11/19 07:50 MCH 30.8 pg (25.7-33.7) 02/11/19 07:50 MCHC 33.8 g/dl (32.0-35.9) 02/11/19 07:50 RDW 14.7 % (11.9-15.9) 02/11/19 07:50 Plt Count 174 K/MM3 (134-434) 02/11/19 07:50 MPV 8.9 fl (7.5-11.1) 02/11/19 07:50 Sodium 141 mmol/L (136-145) 02/11/19 07:50 Potassium 3.4 mmol/L (3.5-5.1) L 02/11/19 07:50 Chloride 106 mmol/L (98-107) 02/11/19 07:50 Carbon Dioxide 31 mmol/L (21-32) 02/11/19 07:50 Anion Gap 5 MMOL/L (8-16) L 02/11/19 07:50 BUN 11.2 mg/dL (7-18) 02/11/19 07:50 Creatinine 1.1 mg/dL (0.55-1.3) 02/11/19 07:50 Est GFR (CKD-EPI)AfAm 88.36 02/11/19 07:50 Est GFR (CKD-EPI)NonAf 76.24 02/11/19 07:50 Random Glucose 82 mg/dL (74-106) 02/11/19 07:50 Calcium 8.4 mg/dL (8.5-10.1) L 02/11/19 07:50 Total Bilirubin 0.6 mg/dL (0.2-1) 02/11/19 07:50 AST 9 U/L (15-37) L 02/11/19 07:50 ALT 18 U/L (13-61) 02/11/19 07:50 Alkaline Phosphatase 50 U/L (45-117) 02/11/19 07:50 Total Protein 6.2 g/dl (6.4-8.2) L 02/11/19 07:50 Albumin 3.2 g/dl (3.4-5.0) L 02/11/19 07:50 RPR Titer Nonreactive (NONREACTIVE) 02/11/19 07:50 repeat cbc lab noted 02/11/19 16:02 Assessment: 02/11/19 16:02 opiate withdrawal sx Plan: continue opiate detox
[2019-02-11] MEDS: THIAMINE HCL 100 MG TABLET (FP) PO SCH (22:06)
[2019-02-11] MEDS: traZODone HCL 50 MG TABLET (FP) PO PRN (22:06)
--- NOTE | 2019-02-12 09:44 | PN ---
BHS COWS - Scale Resting Pulse: 0= [place] 80 or Below Sweatin= Chills/Flushing Restless Observation: 0= Sits Still Pupil Size: 0= Normal to Room Light Bone or Joint Aches: 1= Mild Discomfort Runny Nose/ Eye Tearin= Nasal Congestion GI Upset > 30mins: 1= Stomach Cramp Tremor Observation of Outstretched Hands: 1= Tremor [place], Not Seen Yawning Observation: 1= 1-2x During Session Anxiety or Irritability: 1=Feels Anxious/Irritable Goose Flesh Skin: 0=Smooth Skin COWS Score: 7 BHS Progress Note (SOAP) Subjective: 53 years old male admitted on 02/10/19 for acute opiate withdrawal sx managment doing well with methadone detox regimen K+ 3.4 refuse repeat K+ patient is alert oriented x 3 denies chest pain denies dizziness no shortness of breath ambulating on hallway social with peers discuss medication assisted treatment program Objective: 02/12/19 09:47 Vital Signs Temperature 97.7 F 02/12/19 07:50 Pulse Rate 52 L 02/12/19 07:50 Respiratory Rate 18 02/12/19 07:50 Blood Pressure 115/69 02/12/19 07:50 O2 Sat by Pulse Oximetry (%) Laboratory Last Values WBC 2.9 K/mm3 (4.0-10.0) L 02/11/19 07:50 RBC 4.00 M/mm3 (4.00-5.60) 02/11/19 07:50 Hgb 12.3 GM/dL (11.7-16.9) 02/11/19 07:50 Hct 36.3 % (35.4-49) 02/11/19 07:50 MCV 90.9 fl (80-96) 02/11/19 07:50 MCH 30.8 pg (25.7-33.7) 02/11/19 07:50 MCHC 33.8 g/dl (32.0-35.9) 02/11/19 07:50 RDW 14.7 % (11.9-15.9) 02/11/19 07:50 Plt Count 174 K/MM3 (134-434) 02/11/19 07:50 MPV 8.9 fl (7.5-11.1) 02/11/19 07:50 Sodium 141 mmol/L (136-145) 02/11/19 07:50 Potassium 3.4 mmol/L (3.5-5.1) L 02/11/19 07:50 Chloride 106 mmol/L (98-107) 02/11/19 07:50 Carbon Dioxide 31 mmol/L (21-32) 02/11/19 07:50 Anion Gap 5 MMOL/L (8-16) L 02/11/19 07:50 BUN 11.2 mg/dL (7-18) 02/11/19 07:50 Creatinine 1.1 mg/dL (0.55-1.3) 02/11/19 07:50 Est GFR (CKD-EPI)AfAm 88.36 02/11/19 07:50 Est GFR (CKD-EPI)NonAf 76.24 02/11/19 07:50 Random Glucose 82 mg/dL (74-106) 02/11/19 07:50 Calcium 8.4 mg/dL (8.5-10.1) L 02/11/19 07:50 Total Bilirubin 0.6 mg/dL (0.2-1) 02/11/19 07:50 AST 9 U/L (15-37) L 02/11/19 07:50 ALT 18 U/L (13-61) 02/11/19 07:50 Alkaline Phosphatase 50 U/L (45-117) 02/11/19 07:50 Total Protein 6.2 g/dl (6.4-8.2) L 02/11/19 07:50 Albumin 3.2 g/dl (3.4-5.0) L 02/11/19 07:50 RPR Titer Nonreactive (NONREACTIVE) 02/11/19 07:50 lab noted low K+ low wbc patient refuses repeat blood work discuss the risks of low wbc and below normal of K+ patient prefers bring in lab report to aftercare facility provider follow up Assessment: 02/12/19 09:49 opiate withdrawal sx Plan: continue opiate detox
[2019-02-12] MEDS ORDERED: METHADONE HCL 10 MG TABLET (FOR DETOX USE ONLY) PO ONE (10:00)
[2019-02-12] MEDS: PRENATAL VITAMINS W/ FOLIC ACID TABLET (FP) PO SCH (10:33)
[2019-02-12] MEDS: APIXABAN 5 MG TABLET PO SCH ×2 (10:33→21:12)
[2019-02-12] MEDS: LISINOPRIL 10 MG TABLET (FP) PO SCH (10:33)
[2019-02-12] MEDS: metoPROLOL SUCCINATE 25 MG TAB.SR.24H (FP) PO SCH (10:33)
[2019-02-12] MEDS: NICOTINE POLACRILEX 4 MG GUM BUC PRN ×2 (10:35→13:39)
[2019-02-12] MEDS: ASPIRIN 81 MG CHEWABLE TABLETS PO SCH (12:37)
[2019-02-12] MEDS: clonazePAM 0.5 MG TABLET PO PRN (17:20)
[2019-02-12] MEDS: MELATONIN 5 MG TABLETS PO PRN (21:13)
[2019-02-12] MEDS: THIAMINE HCL 100 MG TABLET (FP) PO SCH (21:13)
[2019-02-13] MEDS: NICOTINE POLACRILEX 4 MG GUM BUC PRN ×4 (08:36→18:12)
[2019-02-13] MEDS ORDERED: METHADONE HCL 10 MG TABLET (FOR DETOX USE ONLY) ONE (09:35)
[2019-02-13] MEDS ORDERED: METHADONE HCL 5 MG TABLET (FOR DETOX USE ONLY) ONE (09:35)
[2019-02-13] MEDS ORDERED: METHADONE (DETOX) 10 MG, METHADONE (DETOX) 5 MG PO ONE (10:00)
[2019-02-13] MEDS: ASPIRIN 81 MG CHEWABLE TABLETS PO SCH (10:39)
[2019-02-13] MEDS: APIXABAN 5 MG TABLET PO SCH ×2 (10:40→21:05)
[2019-02-13] MEDS: metoPROLOL SUCCINATE 25 MG TAB.SR.24H (FP) PO SCH (10:40)
[2019-02-13] MEDS: LISINOPRIL 10 MG TABLET (FP) PO SCH (10:40)
[2019-02-13] MEDS: PRENATAL VITAMINS W/ FOLIC ACID TABLET (FP) PO SCH (10:40)
--- NOTE | 2019-02-13 10:41 | PN ---
BHS COWS - Scale Resting Pulse: 0= [place] 80 or Below Sweatin= Chills/Flushing Restless Observation: 0= Sits Still Pupil Size: 0= Normal to Room Light Bone or Joint Aches: 1= Mild Discomfort Runny Nose/ Eye Tearin= None GI Upset > 30mins: 1= Stomach Cramp Tremor Observation of Outstretched Hands: 1= Tremor [place], Not Seen Yawning Observation: 0= None Anxiety or Irritability: 1=Feels Anxious/Irritable Goose Flesh Skin: 0=Smooth Skin COWS Score: 5 BHS Progress Note (SOAP) Subjective: 53 years old malew admitted on 02/10/19 for acute opiate withdrawal sx managment doing well with methadone detox program mild body aches otherwise feeling ok patient hesitates to discuss aftercare with staff Objective: 02/13/19 10:42 Vital Signs Temperature 97.1 F L 02/13/19 09:32 Pulse Rate 60 02/13/19 09:32 Respiratory Rate 16 02/13/19 09:32 Blood Pressure 127/89 02/13/19 09:32 O2 Sat by Pulse Oximetry (%) Laboratory Last Values WBC 2.9 K/mm3 (4.0-10.0) L 02/11/19 07:50 RBC 4.00 M/mm3 (4.00-5.60) 02/11/19 07:50 Hgb 12.3 GM/dL (11.7-16.9) 02/11/19 07:50 Hct 36.3 % (35.4-49) 02/11/19 07:50 MCV 90.9 fl (80-96) 02/11/19 07:50 MCH 30.8 pg (25.7-33.7) 02/11/19 07:50 MCHC 33.8 g/dl (32.0-35.9) 02/11/19 07:50 RDW 14.7 % (11.9-15.9) 02/11/19 07:50 Plt Count 174 K/MM3 (134-434) 02/11/19 07:50 MPV 8.9 fl (7.5-11.1) 02/11/19 07:50 Sodium 141 mmol/L (136-145) 02/11/19 07:50 Potassium 3.4 mmol/L (3.5-5.1) L 02/11/19 07:50 Chloride 106 mmol/L (98-107) 02/11/19 07:50 Carbon Dioxide 31 mmol/L (21-32) 02/11/19 07:50 Anion Gap 5 MMOL/L (8-16) L 02/11/19 07:50 BUN 11.2 mg/dL (7-18) 02/11/19 07:50 Creatinine 1.1 mg/dL (0.55-1.3) 02/11/19 07:50 Est GFR (CKD-EPI)AfAm 88.36 02/11/19 07:50 Est GFR (CKD-EPI)NonAf 76.24 02/11/19 07:50 Random Glucose 82 mg/dL (74-106) 02/11/19 07:50 Calcium 8.4 mg/dL (8.5-10.1) L 02/11/19 07:50 Total Bilirubin 0.6 mg/dL (0.2-1) 02/11/19 07:50 AST 9 U/L (15-37) L 02/11/19 07:50 ALT 18 U/L (13-61) 02/11/19 07:50 Alkaline Phosphatase 50 U/L (45-117) 02/11/19 07:50 Total Protein 6.2 g/dl (6.4-8.2) L 02/11/19 07:50 Albumin 3.2 g/dl (3.4-5.0) L 02/11/19 07:50 RPR Titer Nonreactive (NONREACTIVE) 02/11/19 07:50 lab noted repeat K+ and wbc pending Assessment: 02/13/19 10:42 opiate withdrawal sx Plan: continue opiate detox patient has not response the possibility to medication assisted treatment program
[2019-02-13 12:20] LABS: HEMATOCRIT 40.6 % (35.4-49); HEMOGLOBIN 13.4 GM/dL (11.7-16.9); MCH 30.2 pg (25.7-33.7); MEAN CELL VOLUME 91.5 fl (80-96); MEAN PLT VOLUME 9.2 fl (7.5-11.1); PLATELET COUNT 188 K/MM3 (134-434); RBC 4.44 M/mm3 (4.00-5.60); RDW 14.6 % (11.9-15.9); WHITE BLOOD COUNT 3.3 K/mm3 (4.0-10.0)
[2019-02-13] MEDS: clonazePAM 0.5 MG TABLET PO PRN ×2 (13:56→20:39)
[2019-02-13] MEDS: THIAMINE HCL 100 MG TABLET (FP) PO SCH (21:05)
[2019-02-13] MEDS: MELATONIN 5 MG TABLETS PO PRN (21:06)
[2019-02-14] MEDS ORDERED: METHADONE HCL 10 MG TABLET (FOR DETOX USE ONLY) PO ONE (10:00)
[2019-02-14] MEDS: metoPROLOL SUCCINATE 25 MG TAB.SR.24H (FP) PO SCH (10:17)
[2019-02-14] MEDS: APIXABAN 5 MG TABLET PO SCH ×2 (10:17→21:05)
[2019-02-14] MEDS: PRENATAL VITAMINS W/ FOLIC ACID TABLET (FP) PO SCH (10:17)
[2019-02-14] MEDS: LISINOPRIL 10 MG TABLET (FP) PO SCH (10:17)
[2019-02-14] MEDS: ASPIRIN 81 MG CHEWABLE TABLETS PO SCH (10:17)
[2019-02-14] MEDS: clonazePAM 0.5 MG TABLET PO PRN ×2 (12:27→19:31)
[2019-02-14] MEDS: NICOTINE POLACRILEX 4 MG GUM BUC PRN ×2 (12:27→19:31)
--- NOTE | 2019-02-14 13:25 | PN ---
S CIWA - CIWA Score Nausea/Vomitin-No Nausea/No Vomiting Muscle Tremors: 1-None Visible, but [place] Anxiety: 1-Mildly Anxious Agitation: 1-Slight > Activity Paroxysmal Sweats: No Perspiration Orientation: 0-Oriented Tacttile Disturbances: 0-None Auditory Disturbances: 0-None Visual Disturbances: 0-None Headache: 0-None Present CIWA-Ar Total Score: 3 BHS Progress Note (SOAP) Subjective: 53 years old male admitted on 02/10/19 for acute opiate withdrawal sx management doing well with valium and methadone becka discuss medication assisted treatment program Objective: 02/14/19 13:29 Vital Signs Temperature 98.1 F 02/14/19 13:11 Pulse Rate 50 L 02/14/19 13:11 Respiratory Rate 18 02/14/19 13:11 Blood Pressure 156/99 02/14/19 13:11 O2 Sat by Pulse Oximetry (%) Laboratory Last Values WBC 3.3 K/mm3 (4.0-10.0) L 02/13/19 09:00 RBC 4.44 M/mm3 (4.00-5.60) 02/13/19 09:00 Hgb 13.4 GM/dL (11.7-16.9) 02/13/19 09:00 Hct 40.6 % (35.4-49) 02/13/19 09:00 MCV 91.5 fl (80-96) 02/13/19 09:00 MCH 30.2 pg (25.7-33.7) 02/13/19 09:00 MCHC 33.0 g/dl (32.0-35.9) 02/13/19 09:00 RDW 14.6 % (11.9-15.9) 02/13/19 09:00 Plt Count 188 K/MM3 (134-434) 02/13/19 09:00 MPV 9.2 fl (7.5-11.1) 02/13/19 09:00 Sodium 141 mmol/L (136-145) 02/11/19 07:50 Potassium 3.9 mmol/L (3.5-5.1) 02/13/19 09:00 Chloride 106 mmol/L (98-107) 02/11/19 07:50 Carbon Dioxide 31 mmol/L (21-32) 02/11/19 07:50 Anion Gap 5 MMOL/L (8-16) L 02/11/19 07:50 BUN 11.2 mg/dL (7-18) 02/11/19 07:50 Creatinine 1.1 mg/dL (0.55-1.3) 02/11/19 07:50 Est GFR (CKD-EPI)AfAm 88.36 02/11/19 07:50 Est GFR (CKD-EPI)NonAf 76.24 02/11/19 07:50 Random Glucose 82 mg/dL (74-106) 02/11/19 07:50 Calcium 8.4 mg/dL (8.5-10.1) L 02/11/19 07:50 Total Bilirubin 0.6 mg/dL (0.2-1) 02/11/19 07:50 AST 9 U/L (15-37) L 02/11/19 07:50 ALT 18 U/L (13-61) 02/11/19 07:50 Alkaline Phosphatase 50 U/L (45-117) 02/11/19 07:50 Total Protein 6.2 g/dl (6.4-8.2) L 02/11/19 07:50 Albumin 3.2 g/dl (3.4-5.0) L 02/11/19 07:50 RPR Titer Nonreactive (NONREACTIVE) 02/11/19 07:50 lab noted Assessment: 02/14/19 13:30 opiate withdrawal sx Plan: continue opiate detox
[2019-02-14] MEDS: THIAMINE HCL 100 MG TABLET (FP) PO SCH (21:04)
[2019-02-15] MEDS ORDERED: METHADONE HCL 5 MG TABLET (FOR DETOX USE ONLY) PO ONE (06:00)
[2019-02-15 06:19] VITALS: BP 138/83; PULSE 60; TEMP 97.6
--- NOTE | 2019-02-15 16:17 | DS ---
[facility] Detox Discharge Summary Admission Date: 02/10/19 Discharge Date: 02/15/19 - History Present History: Opioid Dependence Additional Comments: 53 years old male admitted on 02/10/19 for opiate withdrawal sx no complication throughout the detox stay alert oriented x 3 denies dizziness no shortness of breath denies diarrhea no nausea - Physical Exam Results Vital Signs: Vital Signs Temperature 97.6 F 02/15/19 06:19 Pulse Rate 60 02/15/19 06:19 Respiratory Rate 18 02/15/19 06:19 Blood Pressure 138/83 02/15/19 06:19 O2 Sat by Pulse Oximetry (%) Pertinent Admission Physical Exam Findings: opiate withdrawal sx Laboratory Last Values WBC 3.3 K/mm3 (4.0-10.0) L 02/13/19 09:00 RBC 4.44 M/mm3 (4.00-5.60) 02/13/19 09:00 Hgb 13.4 GM/dL (11.7-16.9) 02/13/19 09:00 Hct 40.6 % (35.4-49) 02/13/19 09:00 MCV 91.5 fl (80-96) 02/13/19 09:00 MCH 30.2 pg (25.7-33.7) 02/13/19 09:00 MCHC 33.0 g/dl (32.0-35.9) 02/13/19 09:00 RDW 14.6 % (11.9-15.9) 02/13/19 09:00 Plt Count 188 K/MM3 (134-434) 02/13/19 09:00 MPV 9.2 fl (7.5-11.1) 02/13/19 09:00 Sodium 141 mmol/L (136-145) 02/11/19 07:50 Potassium 3.9 mmol/L (3.5-5.1) 02/13/19 09:00 Chloride 106 mmol/L (98-107) 02/11/19 07:50 Carbon Dioxide 31 mmol/L (21-32) 02/11/19 07:50 Anion Gap 5 MMOL/L (8-16) L 02/11/19 07:50 BUN 11.2 mg/dL (7-18) 02/11/19 07:50 Creatinine 1.1 mg/dL (0.55-1.3) 02/11/19 07:50 Est GFR (CKD-EPI)AfAm 88.36 02/11/19 07:50 Est GFR (CKD-EPI)NonAf 76.24 02/11/19 07:50 Random Glucose 82 mg/dL (74-106) 02/11/19 07:50 Calcium 8.4 mg/dL (8.5-10.1) L 02/11/19 07:50 Total Bilirubin 0.6 mg/dL (0.2-1) 02/11/19 07:50 AST 9 U/L (15-37) L 02/11/19 07:50 ALT 18 U/L (13-61) 02/11/19 07:50 Alkaline Phosphatase 50 U/L (45-117) 02/11/19 07:50 Total Protein 6.2 g/dl (6.4-8.2) L 02/11/19 07:50 Albumin 3.2 g/dl (3.4-5.0) L 02/11/19 07:50 RPR Titer Nonreactive (NONREACTIVE) 02/11/19 07:50 lab noted encouarge the patient consider medication assisted treatment program - Treatment Hospital Course: Detox Protocol Followed, Detoxed Safely, Responded well, Discharged Condition Good, Rehab Referral Accepted Patient has Accepted a Rehab Referral to: new focus - Medication Discharge Medications: Ambulatory Orders Aspirin [ASA -] 81 mg PO DAILY 11/07/18 Apixaban [Eliquis -] 5 mg PO BID #60 tablet 02/14/19 Lisinopril [Prinivil] 10 mg PO DAILY #30 tablet 02/14/19 Metoprolol Succinate [Toprol XL -] 25 mg PO DAILY #30 tab.sr.24h 02/14/19 - Diagnosis (1) HTN (hypertension) Status: Chronic Qualifiers: Hypertension type: essential hypertension Qualified Code(s): I10 - Essential (primary) hypertension (2) Opioid dependence with withdrawal Status: Acute (3) Weight loss Status: Acute (4) Essential hypertension Status: Chronic (5) Nicotine dependence Status: Acute Qualifiers: Nicotine product type: cigarettes Substance use status: in withdrawal Qualified Code(s): F17.213 - Nicotine dependence, cigarettes, with withdrawal - AMA Did Patient Leave Against Medical Advice: No
== END 2019-02-15 08:15 | disposition home or self-care (01) | DRG 897 ==
LOC: YASAS 08:26 → Y3N 10:23
PROVIDERS: ADMIT Surgery; ATTEND Surgery
PROC: HZ2ZZZZ Detoxification Services for Substance Abuse Treatment (ICD-10-PCS; principal; 2019-02-10)
DX: F19.230 Other psychoactive substance dependence with withdrawal, uncomplicated (principal); I42.9 Cardiomyopathy, unspecified; F11.23 Opioid dependence with withdrawal; F14.10 Cocaine abuse, uncomplicated; F10.10 Alcohol abuse, uncomplicated; F17.213 Nicotine dependence, cigarettes, with withdrawal; I10 Essential (primary) hypertension; R63.4 Abnormal weight loss; E78.00 Pure hypercholesterolemia, unspecified; N40.0 Benign prostatic hyperplasia without lower urinary tract symptoms; H91.93 Unspecified hearing loss, bilateral; Z85.828 Personal history of other malignant neoplasm of skin; Z86.73 Personal history of transient ischemic attack (TIA), and cerebral infarction without residual deficits; Z95.810 Presence of automatic (implantable) cardiac defibrillator
CPT/HCPCS: 36415; 80053; 84132; 85027; 86593

== ENCOUNTER 2019-03-18 08:12 | Inpatient (IN) | payer OTHER ==
[2019-03-18 09:00] VITALS: BMI 20.7
--- NOTE | 2019-03-18 09:39 | HP ---
COWS - Scale Resting Pulse: 0= [place] 80 or Below Sweatin= Chills/Flushing Restless Observation: 1= Difficult to Sit Still Pupil Size: 2= Moderately Dilated Bone or Joint Aches: 2= Severe Diffuse Aches Runny Nose/ Eye Tearin= Nasal Congestion GI Upset > 30mins: 2= Nausea/Diarrhea Tremor Observation: 2= Slight Tremor Visible Yawning Observation: 1= 1-2x During Session Anxiety or Irritability: 2=Irritable/Anxious Goose Flesh Skin: 0=Smooth Skin COWS Score: 14 CIWA Score - Admission Criteria OASAS Guidelines: Admission for Medically Managed Detox: Requires at least one of the followin. CIWA greater than 12 2. Seizures within the past 24 hours 3. Delirium tremens within the past 24 hours 4. Hallucinations within the past 24 hours 5. Acute intervention needed for co occurring medical disorder 6. Acute intervention needed for co occurring psychiatric disorder 7. Severe withdrawal that cannot be handled at a lower level of care (continued vomiting, continued diarrhea, abnormal vital signs) requiring intravenous medication and/or fluids 8. Admission ROS [facility] Chief Complaint: I JUST WANT TO DETOX Allergies/Adverse Reactions: Allergies Allergy/AdvReac Type Severity Reaction Status Date / Time ibuprofen Allergy Intermediate Nausea Verified 03/18/19 08:53 lactose Allergy Intermediate Vomiting Verified 03/18/19 08:53 History of Present Illness: 30 YEARS OPIATE USE IN DETOX 1 MO AGO NO HO MAT 15 Y ABSTINENCE UNTIL 2013 OFF AND ON PERIODS OF ABSTINENCE - Ebola screening Have you traveled outside of the country in the last 21 days: No (N) Have you had contact with anyone from an Ebola affected area: No Do you have a fever: No - Review of Systems Constitutional: Loss of Appetite, Unintentional Wgt. 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) Hx Cardiac Disorders: Yes (cardiomyopathy,implanted defibrillator) Hx Congestive Heart Failure: No Hx Hypertension: Yes (on meds) Hx Hypercholesterolemia: Yes HX Cerebrovascular Accident: Yes (06/2014 left side) Hx Seizures: No Hx Dementia: No Hx Diabetes: No Hx Gastrointestinal Disorders: No Hx Liver Disease: No Hx Genitourinary Disorders: Yes (?BPH ) Hx Sexually Transmitted Disorders: No Hx Renal Disease (ESRD): No Hx Thyroid Disease: No Hx Human Immunodeficiency Virus (HIV): No (last 09/12) Hx Hepatitis C: No Hx Depression: No Hx Suicide Attempt: No Hx Bipolar Disorder: No Hx Schizophrenia: No - Patient Surgical History Past Surgical History: Yes Hx Neurologic Surgery: No Hx Cataract Extraction: No Hx Cardiac Surgery: Yes (Implanted defibrillator 2013; excision mediasinal myxoid tumor 2014 at [facility]) Hx Lung Surgery: No Hx Breast Surgery: No Hx Breast Biopsy: No Hx Abdominal Surgery: No Hx Appendectomy: No Hx Cholecystectomy: No Hx Genitourinary Surgery: No Hx Section: No Hx Orthopedic Surgery: Yes (right shuolder ) Anesthesia Reaction: No - PPD History Date: 11/09/18 Results: 0mm - Smoking Cessation Smoking history: Current every day smoker Have you smoked in the past 12 months: Yes Aproximately how many cigarettes per day: 20 If you are a former smoker, when did you quit?: one month ago Hx Chewing Tobacco Use: No Initiated information on smoking cessation: Yes 'Breaking Loose' booklet given: 03/18/19 - Substances abused Heroin Substance route: Inhalation Frequency: Daily Amount used: 20 bags a day Age of first use: 20 Date of last use: 03/17/19 Cocaine Substance route: Inhalation Frequency: 1-3 times last 30 days Amount used: 1 line Age of first use: 21 Date of last use: 03/13/19 Alcohol Substance route: Oral Frequency: 1-2 times per week Amount used: 2 shots whiskey Age of first use: 15 Date of last use: 03/11/19 Family Disease History - Family Disease History Family Disease History: Other: Father (, no contact), Mother (living - healthy), Sister (four half sisters - healthy), Son (one age 34 - healthy) Admission Physical Exam BHS - Vital Signs Vital Signs: Vital Signs - 24 hr 03/18/19 08:56 Temperature 98.0 F Pulse Rate 60 Respiratory 18 Rate Blood Pressure 158/101 H - Physical General Appearance: Yes: Irritable, Anxious HEENTM: Yes: EOMI, Normocephalic Respiratory: Yes: Lungs Clear Neck: Yes: Within Normal Limits Breast: Yes: Breast Exam Deferred Cardiology: Yes: Within Normal Limits, Regular Rate, S1, S2 Abdominal: Yes: Increased Bowel Sounds Genitourinary: Yes: Within Normal Limits Back: Yes: Within Normal Limits Musculoskeletal: Yes: full range of Motion, Gait Steady, Pelvis Stable Extremities: Yes: Normal Capillary Refill, Normal Inspection Neurological: Yes: sustain 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 intact, Fully Oriented, Alert, Motor Strength 5/5 Integumentary: Yes: Within Normal Limits - Diagnostic (1) Opioid dependence with withdrawal Current Visit: Yes Status: Acute (2) Alcohol consumption two to four days per week Current Visit: Yes Status: Chronic (3) HTN (hypertension) Current Visit: Yes Status: Chronic Qualifiers: Cleared for Admission S - Detox or Rehab [facility] Level of Care: Medically Supervised Breathalyzer - Breathalyzer Breathalyzer: 0 Urine Drug Screen - Test Device Lot number: [id number] Expiration date: 12/22/20 - Control Is test valid?: Yes - Results Drug screen NEGATIVE: No Urine drug screen results: DALTON-Cocaine, MOP-Opiates, OXY-Oxycodone Inpatient Rehab Admission - Rehab Decision to Admit Inpatient rehab admission?: No
[2019-03-18] MEDS ORDERED: METHADONE HCL 10 MG TABLET (FOR DETOX USE ONLY) PO ONE ×2 (09:41→09:48)
[2019-03-18] MEDS ORDERED: MAGNESIUM HYDROX 2400MG/30ML ORAL SUSPENSION 30 ML CUP PO PRN (09:41)
[2019-03-18] MEDS ORDERED: MAGNESIUM CITRATE 300 ML BOTTLE PO PRN (09:41)
[2019-03-18] MEDS ORDERED: ACETAMINOPHEN 325 MG TABLET (FP) PO PRN ×2 (09:41)
[2019-03-18] MEDS ORDERED: MENTHOL/PHENOL 1 EACH UD MM PRN (09:41)
[2019-03-18] MEDS ORDERED: MAG HYDROX/AL HYDROX/SIMETH 30 ML UNIT-DOSE CUP PO PRN (09:41)
[2019-03-18] MEDS ORDERED: cloNIDine HCL 0.1 MG TABLET PO PRN (09:48)
[2019-03-18] MEDS: APIXABAN 5 MG TABLET PO SCH ×2 (11:33→22:07)
[2019-03-18] MEDS: LISINOPRIL 10 MG TABLET (FP) PO SCH (11:33)
[2019-03-18] MEDS: metoPROLOL SUCCINATE 25 MG TAB.SR.24H (FP) PO SCH (11:33)
[2019-03-18] MEDS: ASPIRIN 81 MG CHEWABLE TABLETS PO SCH (11:33)
[2019-03-18] MEDS: PRENATAL VITAMINS W/ FOLIC ACID TABLET (FP) PO SCH (11:33)
[2019-03-18] MEDS: NICOTINE 21 MG/24 HOURS TOPICAL PATCH TD SCH (11:36)
[2019-03-18] MEDS: hydrOXYzine PAMOATE 25 MG CAPSULE (FP) PO PRN (17:13)
[2019-03-18] MEDS: NICOTINE POLACRILEX 2 MG GUM BUC PRN (17:14)
[2019-03-18] MEDS: cloNIDine HCL 0.1 MG TABLET PO PRN (18:53)
[2019-03-18] MEDS: THIAMINE HCL 100 MG TABLET (FP) PO SCH (22:07)
[2019-03-18] MEDS: MELATONIN 5 MG TABLETS PO PRN (22:08)
[2019-03-18] MEDS: METHOCARBAMOL 500 MG TABLET PO PRN (22:08)
[2019-03-19] MEDS ORDERED: METHADONE HCL 10 MG TABLET (FOR DETOX USE ONLY) ONE (08:45)
[2019-03-19] MEDS ORDERED: METHADONE HCL 5 MG TABLET (FOR DETOX USE ONLY) ONE (08:46)
[2019-03-19 09:46] LABS: HEMATOCRIT 39.3 % (35.4-49); MCH 30.4 pg (25.7-33.7); MCHC 33.2 g/dl (32.0-35.9); MEAN CELL VOLUME 91.7 fl (80-96); MEAN PLT VOLUME 9.5 fl (7.5-11.1); PLATELET COUNT 156 K/MM3 (134-434); RBC 4.28 M/mm3 (4.00-5.60); RDW 15.5 % (11.9-15.9); WHITE BLOOD COUNT 2.7 K/mm3 (4.0-10.0)
[2019-03-19] MEDS ORDERED: METHADONE (DETOX) 20 MG, METHADONE (DETOX) 5 MG PO ONE (10:00)
[2019-03-19] MEDS ORDERED: METHADONE HCL 5 MG TABLET (FOR DETOX USE ONLY) PO ONE (10:00)
[2019-03-19 10:02] LABS: ALBUMIN 3.5 g/dl (3.4-5.0); BILIRUBIN,TOTAL 0.4 mg/dL (0.2-1); BLOOD UREA NITROGEN 13.8 mg/dL (7-18); CALCIUM 8.8 mg/dL (8.5-10.1); CREATININE 1.1 mg/dL (0.55-1.3); POTASSIUM 3.8 mmol/L (3.5-5.1); TOT PROT 6.6 g/dl (6.4-8.2)
[2019-03-19] MEDS: PRENATAL VITAMINS W/ FOLIC ACID TABLET (FP) PO SCH (10:06)
[2019-03-19] MEDS: ASPIRIN 81 MG CHEWABLE TABLETS PO SCH (10:06)
[2019-03-19] MEDS: metoPROLOL SUCCINATE 25 MG TAB.SR.24H (FP) PO SCH (10:06)
[2019-03-19] MEDS: LISINOPRIL 10 MG TABLET (FP) PO SCH (10:06)
[2019-03-19] MEDS: NICOTINE 21 MG/24 HOURS TOPICAL PATCH TD SCH (10:07)
[2019-03-19] MEDS: APIXABAN 5 MG TABLET PO SCH ×2 (10:08→21:29)
--- NOTE | 2019-03-19 10:32 | PN ---
S COWS - Scale Resting Pulse: 0= [place] 80 or Below Sweatin= Chills/Flushing Restless Observation: 0= Sits Still Pupil Size: 1= Pupils >than Normal Bone or Joint Aches: 1= Mild Discomfort Runny Nose/ Eye Tearin= None GI Upset > 30mins: 1= Stomach Cramp Tremor Observation of Outstretched Hands: 2= Slight Tremor Visible Yawning Observation: 1= 1-2x During Session Anxiety or Irritability: 2=Irritable/Anxious Goose Flesh Skin: 3=Piloerection COWS Score: 12 BHS Progress Note (SOAP) Subjective: 53 years old male admitted on 03/18/19 for acute opiate withdrawal sx management doing well with methadone detox regimen history of hypertension treated with lisinopril bp well managed at this time resting on bed comfortably Objective: 03/19/19 10:32 Vital Signs Temperature 98.4 F 03/19/19 09:15 Pulse Rate 56 L 03/19/19 09:15 Respiratory Rate 17 03/19/19 09:15 Blood Pressure 119/73 03/19/19 09:15 O2 Sat by Pulse Oximetry (%) Laboratory Last Values WBC 2.7 K/mm3 (4.0-10.0) L 03/19/19 07:00 RBC 4.28 M/mm3 (4.00-5.60) 03/19/19 07:00 Hgb 13.0 GM/dL (11.7-16.9) 03/19/19 07:00 Hct 39.3 % (35.4-49) 03/19/19 07:00 MCV 91.7 fl (80-96) 03/19/19 07:00 MCH 30.4 pg (25.7-33.7) 03/19/19 07:00 MCHC 33.2 g/dl (32.0-35.9) 03/19/19 07:00 RDW 15.5 % (11.9-15.9) 03/19/19 07:00 Plt Count 156 K/MM3 (134-434) 03/19/19 07:00 MPV 9.5 fl (7.5-11.1) 03/19/19 07:00 Sodium 140 mmol/L (136-145) 03/19/19 07:00 Potassium 3.8 mmol/L (3.5-5.1) 03/19/19 07:00 Chloride 101 mmol/L (98-107) 03/19/19 07:00 Carbon Dioxide 33 mmol/L (21-32) H 03/19/19 07:00 Anion Gap 5 MMOL/L (8-16) L 03/19/19 07:00 BUN 13.8 mg/dL (7-18) 03/19/19 07:00 Creatinine 1.1 mg/dL (0.55-1.3) 03/19/19 07:00 Est GFR (CKD-EPI)AfAm 88.36 03/19/19 07:00 Est GFR (CKD-EPI)NonAf 76.24 03/19/19 07:00 Random Glucose 73 mg/dL (74-106) L 03/19/19 07:00 Calcium 8.8 mg/dL (8.5-10.1) 03/19/19 07:00 Total Bilirubin 0.4 mg/dL (0.2-1) 03/19/19 07:00 AST 20 U/L (15-37) 03/19/19 07:00 ALT 25 U/L (13-61) 03/19/19 07:00 Alkaline Phosphatase 54 U/L (45-117) 03/19/19 07:00 Total Protein 6.6 g/dl (6.4-8.2) 03/19/19 07:00 Albumin 3.5 g/dl (3.4-5.0) 03/19/19 07:00 lab noted 03/19/19 10:33 hiv pending low wbc 03/19/19 10:35 10/2018 wbc 4.6 to 02/2019 wbc 2.7 encourage the patient follow up with hemotolohgy Assessment: 03/19/19 10:36 opiate withdrawal sx alert oriented x 3 temp 97.7 no coughing denies urinary trouble Plan: continue methadone detox regimen discuss medication assisted treatment program as continuity of care
[2019-03-19] MEDS: NICOTINE POLACRILEX 2 MG GUM BUC PRN (13:05)
[2019-03-19] MEDS: METHOCARBAMOL 500 MG TABLET PO PRN (16:39)
[2019-03-19] MEDS: hydrOXYzine PAMOATE 25 MG CAPSULE (FP) PO PRN (16:39)
[2019-03-19] MEDS: cloNIDine HCL 0.1 MG TABLET PO PRN (16:41)
[2019-03-19] MEDS: MELATONIN 5 MG TABLETS PO PRN (21:29)
[2019-03-19] MEDS: THIAMINE HCL 100 MG TABLET (FP) PO SCH (21:29)
[2019-03-20] MEDS ORDERED: METHADONE HCL 10 MG TABLET (FOR DETOX USE ONLY) PO ONE ×2 (10:00)
[2019-03-20] MEDS: ASPIRIN 81 MG CHEWABLE TABLETS PO SCH (10:10)
[2019-03-20] MEDS: PRENATAL VITAMINS W/ FOLIC ACID TABLET (FP) PO SCH (10:10)
[2019-03-20] MEDS: metoPROLOL SUCCINATE 25 MG TAB.SR.24H (FP) PO SCH (10:10)
[2019-03-20] MEDS: LISINOPRIL 10 MG TABLET (FP) PO SCH (10:10)
[2019-03-20] MEDS: NICOTINE 21 MG/24 HOURS TOPICAL PATCH TD SCH (10:11)
[2019-03-20] MEDS: APIXABAN 5 MG TABLET PO SCH ×2 (10:11→22:19)
--- NOTE | 2019-03-20 10:52 | PN ---
BHS COWS - Scale Resting Pulse: 0= [place] 80 or Below Sweatin= Chills/Flushing Restless Observation: 1= Difficult to Sit Still (standing on hallway social with peers) Pupil Size: 1= Pupils >than Normal Bone or Joint Aches: 1= Mild Discomfort Runny Nose/ Eye Tearin= None GI Upset > 30mins: 1= Stomach Cramp Tremor Observation of Outstretched Hands: 2= Slight Tremor Visible Yawning Observation: 0= None Anxiety or Irritability: 1=Feels Anxious/Irritable Goose Flesh Skin: 3=Piloerection COWS Score: 11 BHS Progress Note (SOAP) Subjective: restlessness, anxious, body aches doing well with methadone detox regimen tolerate food and fluid well Objective: 03/20/19 10:53 Vital Signs Temperature 97.6 F 03/20/19 09:16 Pulse Rate 67 03/20/19 09:16 Respiratory Rate 18 03/20/19 09:16 Blood Pressure 131/96 03/20/19 09:16 O2 Sat by Pulse Oximetry (%) Laboratory Last Values WBC 2.7 K/mm3 (4.0-10.0) L 03/19/19 07:00 RBC 4.28 M/mm3 (4.00-5.60) 03/19/19 07:00 Hgb 13.0 GM/dL (11.7-16.9) 03/19/19 07:00 Hct 39.3 % (35.4-49) 03/19/19 07:00 MCV 91.7 fl (80-96) 03/19/19 07:00 MCH 30.4 pg (25.7-33.7) 03/19/19 07:00 MCHC 33.2 g/dl (32.0-35.9) 03/19/19 07:00 RDW 15.5 % (11.9-15.9) 03/19/19 07:00 Plt Count 156 K/MM3 (134-434) 03/19/19 07:00 MPV 9.5 fl (7.5-11.1) 03/19/19 07:00 Sodium 140 mmol/L (136-145) 03/19/19 07:00 Potassium 3.8 mmol/L (3.5-5.1) 03/19/19 07:00 Chloride 101 mmol/L (98-107) 03/19/19 07:00 Carbon Dioxide 33 mmol/L (21-32) H 03/19/19 07:00 Anion Gap 5 MMOL/L (8-16) L 03/19/19 07:00 BUN 13.8 mg/dL (7-18) 03/19/19 07:00 Creatinine 1.1 mg/dL (0.55-1.3) 03/19/19 07:00 Est GFR (CKD-EPI)AfAm 88.36 03/19/19 07:00 Est GFR (CKD-EPI)NonAf 76.24 03/19/19 07:00 Random Glucose 73 mg/dL (74-106) L 03/19/19 07:00 Calcium 8.8 mg/dL (8.5-10.1) 03/19/19 07:00 Total Bilirubin 0.4 mg/dL (0.2-1) 03/19/19 07:00 AST 20 U/L (15-37) 03/19/19 07:00 ALT 25 U/L (13-61) 03/19/19 07:00 Alkaline Phosphatase 54 U/L (45-117) 03/19/19 07:00 Total Protein 6.6 g/dl (6.4-8.2) 03/19/19 07:00 Albumin 3.5 g/dl (3.4-5.0) 03/19/19 07:00 RPR Titer Nonreactive (NONREACTIVE) 03/19/19 07:00 HIV 1&2 Ag/Ab, 4th Gen Non reactive (Non Reactive) 03/19/19 10:00 HIV 1&2 Antibody Screen Cancelled 03/19/19 07:00 HIV P24 Antigen Cancelled 03/19/19 07:00 lab notefd 03/20/19 10:55 low wbc patient considers returning to primary care provider for possible hemotology referral Assessment: 03/20/19 10:56 opiate withdrawal sx alert oriented x 3 steady gait speech clearly Plan: continue methadone detox regimen
[2019-03-20] MEDS: THIAMINE HCL 100 MG TABLET (FP) PO SCH (22:17)
[2019-03-20] MEDS: MELATONIN 5 MG TABLETS PO PRN (22:18)
[2019-03-21] MEDS ORDERED: METHADONE HCL 5 MG TABLET (FOR DETOX USE ONLY) PO ONE ×2 (06:00→08:41)
[2019-03-21] MEDS ORDERED: APIXABAN 5 MG TABLET PO ONE (08:38)
[2019-03-21] MEDS ORDERED: ASPIRIN 81 MG CHEWABLE TABLETS PO ONE (08:39)
[2019-03-21] MEDS ORDERED: LISINOPRIL 10 MG TABLET (FP) PO ONE (08:40)
--- NOTE | 2019-03-21 08:42 | DS ---
[facility] Detox Discharge Summary Admission Date: 03/18/19 Discharge Date: 03/21/19 - History Present History: Opioid Dependence Additional Comments: 53 years old male multiple detox at [facility] was admitted on 03/18 for opiate withdrawal sx management prefers to leave the detox today patient is alert oriented x 3 speech clearly denies chest pain no shortness of breath denies muscles spasm, full range of motion all four extremities patient requests to leave before 10am medication that advertising copywriter shalonda avina aspirin and lisinopril and methadone 5 mg one time dose now patient agrees to consider medication assisted treatment program for opiate dependent Pertinent Past History: hypertension cva - Physical Exam Results Vital Signs: Vital Signs Temperature 97.5 F L 03/20/19 21:25 Pulse Rate 57 L 03/20/19 21:25 Respiratory Rate 18 03/21/19 03:30 Blood Pressure 127/89 03/20/19 21:25 O2 Sat by Pulse Oximetry (%) Pertinent Admission Physical Exam Findings: opiate withdrawal sx Laboratory Last Values WBC 2.7 K/mm3 (4.0-10.0) L 03/19/19 07:00 RBC 4.28 M/mm3 (4.00-5.60) 03/19/19 07:00 Hgb 13.0 GM/dL (11.7-16.9) 03/19/19 07:00 Hct 39.3 % (35.4-49) 03/19/19 07:00 MCV 91.7 fl (80-96) 03/19/19 07:00 MCH 30.4 pg (25.7-33.7) 03/19/19 07:00 MCHC 33.2 g/dl (32.0-35.9) 03/19/19 07:00 RDW 15.5 % (11.9-15.9) 03/19/19 07:00 Plt Count 156 K/MM3 (134-434) 03/19/19 07:00 MPV 9.5 fl (7.5-11.1) 03/19/19 07:00 Sodium 140 mmol/L (136-145) 03/19/19 07:00 Potassium 3.8 mmol/L (3.5-5.1) 03/19/19 07:00 Chloride 101 mmol/L (98-107) 03/19/19 07:00 Carbon Dioxide 33 mmol/L (21-32) H 03/19/19 07:00 Anion Gap 5 MMOL/L (8-16) L 03/19/19 07:00 BUN 13.8 mg/dL (7-18) 03/19/19 07:00 Creatinine 1.1 mg/dL (0.55-1.3) 03/19/19 07:00 Est GFR (CKD-EPI)AfAm 88.36 03/19/19 07:00 Est GFR (CKD-EPI)NonAf 76.24 03/19/19 07:00 Random Glucose 73 mg/dL (74-106) L 03/19/19 07:00 Calcium 8.8 mg/dL (8.5-10.1) 03/19/19 07:00 Total Bilirubin 0.4 mg/dL (0.2-1) 03/19/19 07:00 AST 20 U/L (15-37) 03/19/19 07:00 ALT 25 U/L (13-61) 03/19/19 07:00 Alkaline Phosphatase 54 U/L (45-117) 03/19/19 07:00 Total Protein 6.6 g/dl (6.4-8.2) 03/19/19 07:00 Albumin 3.5 g/dl (3.4-5.0) 03/19/19 07:00 RPR Titer Nonreactive (NONREACTIVE) 03/19/19 07:00 HIV 1&2 Ag/Ab, 4th Gen Non reactive (Non Reactive) 03/19/19 10:00 HIV 1&2 Antibody Screen Cancelled 03/19/19 07:00 HIV P24 Antigen Cancelled 03/19/19 07:00 lab noted low wbc - Treatment Hospital Course: Detox Protocol Followed, Detoxed Safely, Responded well, Discharged Condition Good, Rehab Referral Accepted Patient has Accepted a Rehab Referral to: [facility] - Medication Discharge Medications: Ambulatory Orders Aspirin [ASA -] 81 mg PO DAILY 11/07/18 Apixaban [Eliquis -] 5 mg PO BID #60 tablet 03/21/19 Lisinopril [Prinivil] 10 mg PO DAILY #30 tablet 03/21/19 Metoprolol Succinate [Toprol XL -] 25 mg PO DAILY #30 tab.sr.24h 03/21/19 - Diagnosis (1) HTN (hypertension) Current Visit: Yes Status: Chronic Qualifiers: Hypertension type: unspecified Qualified Code(s): I10 - Essential (primary ) hypertension (2) Opioid dependence with withdrawal Current Visit: Yes Status: Acute (3) Essential hypertension Current Visit: Yes Status: Chronic (4) Nicotine dependence Current Visit: Yes Status: Acute Qualifiers: Nicotine product type: cigarettes Substance use status: in withdrawal Qualified Code(s): F17.213 - Nicotine dependence, cigarettes, with withdrawal (5) Weight loss Current Visit: Yes Status: Acute - AMA Did Patient Leave Against Medical Advice: No COWS (PN) - Opiate Withdrawal Resting Pulse: 0= [place] 80 or Below Sweatin= No chills or Flushing Restless Observation: 0= Sits Still Pupil Size: 0= Normal to Room Light Bone or Joint Aches: 0= None Runny Nose/ Eye Tearin= Nasal Congestion GI Upset > 30mins: 0= None Tremor Observation of Outstretched Hands: 1= Tremor [place], Not Seen Yawning Observation: 0= None Anxiety or Irritability: 1=Feels Anxious/Irritable Goose Flesh Skin: 0=Smooth Skin COWS Score: 3
[2019-03-21] MEDS: metoPROLOL SUCCINATE 25 MG TAB.SR.24H (FP) PO SCH (09:09)
[2019-03-21 09:14] VITALS: BP 123/86; PULSE 64; TEMP 97
[2019-03-21] MEDS: PRENATAL VITAMINS W/ FOLIC ACID TABLET (FP) PO SCH (09:16)
[2019-03-21] MEDS: NICOTINE 21 MG/24 HOURS TOPICAL PATCH TD SCH (09:16)
[2019-03-21] MEDS ORDERED: METHADONE HCL 10 MG TABLET (FOR DETOX USE ONLY) PO ONE (10:00)
[2019-03-21] MEDS ORDERED: METHADONE (DETOX) 10 MG, METHADONE (DETOX) 5 MG PO ONE (10:00)
[2019-03-22] MEDS ORDERED: METHADONE HCL 10 MG TABLET (FOR DETOX USE ONLY) PO ONE (10:00)
[2019-03-22] MEDS ORDERED: METHADONE HCL 5 MG TABLET (FOR DETOX USE ONLY) PO ONE (10:00)
[2019-03-23] MEDS ORDERED: METHADONE HCL 5 MG TABLET (FOR DETOX USE ONLY) PO ONE (06:00)
== END 2019-03-21 09:22 | disposition home or self-care (01) | DRG 897 ==
LOC: YASAS 08:12 → Y3N 10:08
PROVIDERS: ADMIT Surgery; ATTEND Surgery
PROC: HZ2ZZZZ Detoxification Services for Substance Abuse Treatment (ICD-10-PCS; principal; 2019-03-18)
DX: F11.23 Opioid dependence with withdrawal (principal); F10.10 Alcohol abuse, uncomplicated; F17.213 Nicotine dependence, cigarettes, with withdrawal; I10 Essential (primary) hypertension; R63.4 Abnormal weight loss; N40.0 Benign prostatic hyperplasia without lower urinary tract symptoms; Z95.810 Presence of automatic (implantable) cardiac defibrillator; Z86.73 Personal history of transient ischemic attack (TIA), and cerebral infarction without residual deficits
CPT/HCPCS: 36415; 80053; 85027; 86593; 87389; J0735

== ENCOUNTER 2019-05-30 08:53 | Inpatient (IN) | payer OTHER ==
--- NOTE | 2019-05-30 09:45 | HP ---
COWS - Scale Resting Pulse: 1= [place] 81-100 Sweatin= Chills/Flushing Restless Observation: 1= Difficult to Sit Still Pupil Size: 1= Pupils >than Normal Bone or Joint Aches: 4=Acute Joint/Muscle Pain Runny Nose/ Eye Tearin= Runny Nose/Eyes GI Upset > 30mins: 1= Stomach Cramp Tremor Observation: 1= Tremor [place], Not Seen Yawning Observation: 1= 1-2x During Session Anxiety or Irritability: 2=Irritable/Anxious Goose Flesh Skin: 0=Smooth Skin COWS Score: 15 CIWA Score - Admission Criteria OASAS Guidelines: Admission for Medically Managed Detox: Requires at least one of the followin. CIWA greater than 12 2. Seizures within the past 24 hours 3. Delirium tremens within the past 24 hours 4. Hallucinations within the past 24 hours 5. Acute intervention needed for co occurring medical disorder 6. Acute intervention needed for co occurring psychiatric disorder 7. Severe withdrawal that cannot be handled at a lower level of care (continued vomiting, continued diarrhea, abnormal vital signs) requiring intravenous medication and/or fluids 8. Admitting History and Physical - Admission History of Present Illness: 53 year black male opioid dependence with 20 years of use and withdrawals. He is using heroin up to 20 bags intranasally daily, last used yesterday. He was last admitted to detox in February of this year and then he relapsed immediately after discharge. He denies overdose and does not use narcan and does not carry narcan. He is at high risk for overdose. He is homeless and in senior care system. He is also using alcohol and cocaine but sporadically PMH: HTN, HLD, History of Stroke in 2013 History Source: Patient Limitations to Obtaining History: No Limitations - Past Medical History PALS SPECIALIST: Yes: CVA, Other (confusion) Pulmonary: Yes: Bronchitis Psych: Yes: Other Musculoskeletal: Yes: Other (weakness) - Advance Directives Advance Directives: No: Living Will, Health Care Proxy, DNR - Smoking History Smoking history: Current every day smoker Have you smoked in the past 12 months: Yes Aproximately how many cigarettes per day: 20 If you are a former smoker, when did you quit?: one month ago - Alcohol/Substance Use Hx Alcohol Use: Yes Number of Drinks Daily: 7 Date of Last Use: 06/03/14 - Social History Usual Living Arrangement: Yes: Alone Do you think of yourself as: Straight/Heterosexual ADL: Independent Occupation: disabled due to stroke in 2013 History of Recent Travel: No Admission ROS [facility] Allergies/Adverse Reactions: Allergies Allergy/AdvReac Type Severity Reaction Status Date / Time ibuprofen Allergy Intermediate Nausea Verified 05/30/19 09:05 lactose Allergy Intermediate Vomiting Verified 05/30/19 09:05 Exam Limitations: No Limitations - Ebola screening Have you traveled outside of the country in the last 21 days: No Have you had contact with anyone from an Ebola affected area: No Have you been sick,other than usual withdrawal symptoms: No Do you have a fever: No - Review of Systems Constitutional: Chills, Diaphoresis, Unintentional Wgt. Loss EENT: reports: No Symptoms Reported Respiratory: reports: No Symptoms reported Cardiac: reports: No Symptoms Reported GI: reports: Indigestion, Abdominal cramping : reports: No Symptoms Reported Musculoskeletal: reports: No Symptoms Reported Integumentary: reports: No Symptoms Reported Neuro: reports: No Symptoms reported Endocrine: reports: No Symptoms Reported Hematology: reports: No Symptoms Reported Psychiatric: reports: No Sypmtoms Reported, Judgement Intact, Mood/Affect Appropiate, Orientated x3 Other Systems: Reviewed and Negative Patient History - Patient Medical History Hx Anemia: No Hx Asthma: No Hx Chronic Obstructive Pulmonary Disease (COPD): No Hx Cancer: No (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 not sure when diagnosed.) Hx Hypercholesterolemia: Yes HX Cerebrovascular Accident: Yes (06/2014 left side) Hx Seizures: No Hx Dementia: No Hx Diabetes: No Hx Gastrointestinal Disorders: No Hx Liver Disease: No Hx Genitourinary Disorders: No Hx Sexually Transmitted Disorders: No Hx Renal Disease (ESRD): No Hx Thyroid Disease: No Hx Human Immunodeficiency Virus (HIV): No (last 09/12) Hx Hepatitis C: No Hx Depression: No Hx Suicide Attempt: No Hx Bipolar Disorder: No Hx Schizophrenia: No - Patient Surgical History Past Surgical History: Yes Hx Neurologic Surgery: No Hx Cataract Extraction: No Hx Cardiac Surgery: Yes (Implanted defibrillator 2013; excision mediasinal myxoid tumor 2014 at [facility]) Hx Lung Surgery: No Hx Breast Surgery: No Hx Breast Biopsy: No Hx Abdominal Surgery: No Hx Appendectomy: No Hx Cholecystectomy: No Hx Genitourinary Surgery: No Hx Section: No Hx Orthopedic Surgery: Yes (right shuolder ) Anesthesia Reaction: No - PPD History Previous Implant?: Yes Documented Results: Negative w/proof Implanted On Prior [facility] Admission?: Yes Date: 11/09/18 Results: 0mm PPD to be Administered?: No - Smoking Cessation Smoking history: Current every day smoker Have you smoked in the past 12 months: Yes Aproximately how many cigarettes per day: 20 If you are a former smoker, when did you quit?: one month ago Hx Chewing Tobacco Use: No Initiated information on smoking cessation: Yes 'Breaking Loose' booklet given: 05/30/19 - Substance & Tx. History Hx Alcohol Use: No Hx Substance Use: Yes Substance Use Type: Heroin Hx Substance Use Treatment: Yes (prior multiple detoxes) - Substances abused Heroin Substance route: Inhalation Frequency: Daily Amount used: 12- 15 bags a day Age of first use: 20 Date of last use: 05/29/19 Cocaine Substance route: Inhalation Frequency: 1-3 times last 30 days Amount used: $20 Age of first use: 21 Date of last use: 05/23/19 Alcohol Substance route: Oral Frequency: 3-6 times per week Amount used: 2 shots vodka Age of first use: 15 Date of last use: 05/28/19 Admission Physical Exam BHS - Vital Signs Vital Signs: Vital Signs - 24 hr 05/30/19 09:11 Temperature 98.3 F Pulse Rate 71 Respiratory 18 Rate Blood Pressure 151/97 - Physical General Appearance: Yes: Mild Distress, Irritable, Sweating, Anxious HEENTM: Yes: EOMI, Hearing grossly Normal, Normocephalic, Normal Voice, MAILE, Pharynx Normal, Tm's normal Respiratory: Yes: Chest Non-Tender, Lungs Clear, Normal Breath Sounds, No Respiratory Distress, No Accessory Muscle Use Neck: Yes: No masses,lesions,Nodules, Supple, Trachea in good position Breast: Yes: Within Normal Limits Cardiology: Yes: Regular Rhythm, Regular Rate, S1, S2 Abdominal: Yes: Non Tender, Flat, Increased Bowel Sounds Genitourinary: Yes: Within Normal Limits Back: Yes: Normal Inspection Musculoskeletal: Yes: full range of Motion, Gait Steady, Pelvis Stable Extremities: Yes: Normal Capillary Refill, Normal Inspection, Normal Range of Motion, Non-Tender 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, Fully Oriented, Alert, Motor Strength 5/5, Normal Mood/Affect, Normal Response Integumentary: Yes: Normal Color, Warm Lymphatic: Yes: Within Normal Limits - Diagnostic (1) History of stroke Current Visit: Yes Status: Acute (2) Nicotine dependence Current Visit: Yes Status: Acute Qualifiers: Nicotine product type: cigarettes Substance use status: in withdrawal Qualified Code(s): F17.213 - Nicotine dependence, cigarettes, with withdrawal (3) Old cerebrovascular accident (CVA) without late effect Current Visit: Yes Status: Acute (4) Opioid dependence with withdrawal Current Visit: Yes Status: Acute (5) Alcohol consumption two to four days per week Current Visit: No Status: Chronic (6) Cocaine abuse Current Visit: Yes Status: Chronic (7) HTN (hypertension) Current Visit: Yes Status: Chronic Qualifiers: Hypertension type: unspecified Qualified Code(s): I10 - Essential (primary ) hypertension (8) Hearing decreased Current Visit: Yes Status: Chronic Qualifiers: Laterality: bilateral Qualified Code(s): H91.93 - Unspecified hearing loss , bilateral Cleared for Admission BHS - Detox or Rehab S Level of Care: Medically Managed Detox Regimen/Protocol: Methadone Screened but not Admitted - Documentation of Visit Screened but not Admitted: No Breathalyzer - Breathalyzer Breathalyzer: 0 Urine Drug Screen - Test Device Lot number: [id number] Expiration date: 12/22/20 - Control Is test valid?: Yes - Results Drug screen NEGATIVE: No Urine drug screen results: DALTON-Cocaine, MOP-Opiates, OXY-Oxycodone Inpatient Rehab Admission - Rehab Decision to Admit Inpatient rehab admission?: No
[2019-05-30] MEDS ORDERED: MAG HYDROX/AL HYDROX/SIMETH 30 ML UNIT-DOSE CUP PO PRN (09:56)
[2019-05-30] MEDS ORDERED: MENTHOL/PHENOL 1 EACH UD MM PRN (09:56)
[2019-05-30] MEDS ORDERED: MAGNESIUM HYDROX 2400MG/30ML ORAL SUSPENSION 30 ML CUP PO PRN (09:56)
[2019-05-30] MEDS ORDERED: MAGNESIUM CITRATE 300 ML BOTTLE PO PRN (09:56)
[2019-05-30] MEDS ORDERED: ACETAMINOPHEN 325 MG TABLET (FP) PO PRN ×2 (09:56)
[2019-05-30] MEDS ORDERED: BISMUTH SUBSALICYLATE 262 MG/15 ML BTL PO PRN (09:56)
[2019-05-30] MEDS ORDERED: METHADONE HCL 10 MG TABLET (FOR DETOX USE ONLY) PO ONE (10:30)
[2019-05-30] MEDS: ASPIRIN 81 MG CHEWABLE TABLETS PO SCH (11:47)
[2019-05-30] MEDS: metoPROLOL SUCCINATE 25 MG TAB.SR.24H (FP) PO SCH (11:47)
[2019-05-30] MEDS: APIXABAN 5 MG TABLET PO SCH ×2 (11:47→22:26)
[2019-05-30] MEDS: PRENATAL VITAMINS W/ FOLIC ACID TABLET (FP) PO SCH (11:48)
[2019-05-30] MEDS: NICOTINE 14 MG/24 HOURS TOPICAL PATCH TD SCH (11:48)
[2019-05-30] MEDS: LISINOPRIL 10 MG TABLET (FP) PO SCH (11:48)
[2019-05-30 15:42] LABS: HEMATOCRIT 39.9 % (35.4-49); HEMOGLOBIN 13.5 GM/dL (11.7-16.9); MCH 32.8 pg (25.7-33.7); MCHC 33.9 g/dl (32.0-35.9); MEAN CELL VOLUME 96.8 fl (80-96); MEAN PLT VOLUME 9.2 fl (7.5-11.1); PLATELET COUNT 205 K/MM3 (134-434); RBC 4.12 M/mm3 (4.00-5.60); RDW 15.7 % (11.9-15.9); WHITE BLOOD COUNT 4.9 K/mm3 (4.0-10.0)
[2019-05-30 16:00] LABS: BILIRUBIN,TOTAL 0.7 mg/dL (0.2-1); BLOOD UREA NITROGEN 10.8 mg/dL (7-18); CALCIUM 9.4 mg/dL (8.5-10.1); POTASSIUM 3.4 mmol/L (3.5-5.1); TOT PROT 7.4 g/dl (6.4-8.2)
[2019-05-30] MEDS: THIAMINE HCL 100 MG TABLET (FP) PO SCH (22:26)
[2019-05-30] MEDS: cloNIDine HCL 0.1 MG TABLET PO PRN (22:44)
[2019-05-31] MEDS: cloNIDine HCL 0.1 MG TABLET PO PRN (06:21)
[2019-05-31] MEDS: METHOCARBAMOL 500 MG TABLET PO PRN ×2 (06:21→14:30)
[2019-05-31] MEDS: hydrOXYzine PAMOATE 25 MG CAPSULE (FP) PO PRN ×2 (06:21→14:30)
[2019-05-31] MEDS ORDERED: METHADONE HCL 10 MG TABLET (FOR DETOX USE ONLY) ONE (08:24)
[2019-05-31] MEDS ORDERED: METHADONE HCL 5 MG TABLET (FOR DETOX USE ONLY) ONE (08:25)
--- NOTE | 2019-05-31 09:33 | PN ---
BHS COWS - Scale Resting Pulse: 0= [place] 80 or Below Sweatin= Chills/Flushing Restless Observation: 0= Sits Still Pupil Size: 1= Pupils >than Normal Bone or Joint Aches: 2= Severe Diffuse Aches Runny Nose/ Eye Tearin= Nasal Congestion GI Upset > 30mins: 1= Stomach Cramp Tremor Observation of Outstretched Hands: 2= Slight Tremor Visible Yawning Observation: 1= 1-2x During Session Anxiety or Irritability: 2=Irritable/Anxious Goose Flesh Skin: 3=Piloerection COWS Score: 14 BHS Progress Note (SOAP) Subjective: 53 years old male admitted on 05/30/19 for opiate withdrawal sx management treated with methadone detox regimen ate breakfast resting on bed limited conversation with staff feeling tired Objective: 05/31/19 09:30 Vital Signs Temperature 96.9 F L 05/31/19 09:16 Pulse Rate 60 05/31/19 09:16 Respiratory Rate 18 05/31/19 09:16 Blood Pressure 115/74 05/31/19 09:16 O2 Sat by Pulse Oximetry (%) Laboratory Last Values WBC 4.9 K/mm3 (4.0-10.0) 05/30/19 10:15 RBC 4.12 M/mm3 (4.00-5.60) 05/30/19 10:15 Hgb 13.5 GM/dL (11.7-16.9) 05/30/19 10:15 Hct 39.9 % (35.4-49) 05/30/19 10:15 MCV 96.8 fl (80-96) H 05/30/19 10:15 MCH 32.8 pg (25.7-33.7) 05/30/19 10:15 MCHC 33.9 g/dl (32.0-35.9) 05/30/19 10:15 RDW 15.7 % (11.9-15.9) 05/30/19 10:15 Plt Count 205 K/MM3 (134-434) D 05/30/19 10:15 MPV 9.2 fl (7.5-11.1) 05/30/19 10:15 Sodium 137 mmol/L (136-145) 05/30/19 10:15 Potassium 3.4 mmol/L (3.5-5.1) L 05/30/19 10:15 Chloride 100 mmol/L (98-107) 05/30/19 10:15 Carbon Dioxide 32 mmol/L (21-32) 05/30/19 10:15 Anion Gap 6 MMOL/L (8-16) L 05/30/19 10:15 BUN 10.8 mg/dL (7-18) 05/30/19 10:15 Creatinine 1.0 mg/dL (0.55-1.3) 05/30/19 10:15 Est GFR (CKD-EPI)AfAm 99.15 05/30/19 10:15 Est GFR (CKD-EPI)NonAf 85.55 05/30/19 10:15 Random Glucose 82 mg/dL (74-106) 05/30/19 10:15 Calcium 9.4 mg/dL (8.5-10.1) 05/30/19 10:15 Total Bilirubin 0.7 mg/dL (0.2-1) 05/30/19 10:15 AST 23 U/L (15-37) 05/30/19 10:15 ALT 25 U/L (13-61) 05/30/19 10:15 Alkaline Phosphatase 65 U/L (45-117) 05/30/19 10:15 Total Protein 7.4 g/dl (6.4-8.2) 05/30/19 10:15 Albumin 4.0 g/dl (3.4-5.0) 05/30/19 10:15 RPR Titer Nonreactive (NONREACTIVE) 05/30/19 10:15 lab noted 05/31/19 09:30 K+ 3.4 possible related to lisinopril K+ supplement repeat k+ 05/31/19 09:33 patient is taking beta talita discontinue clonidine Assessment: 05/31/19 09:33 opiate withdrawal sx Plan: continue methadone detox regimen
[2019-05-31] MEDS ORDERED: METHADONE (DETOX) 20 MG, METHADONE (DETOX) 5 MG PO ONE (10:00)
[2019-05-31] MEDS: NICOTINE 14 MG/24 HOURS TOPICAL PATCH TD SCH (10:21)
[2019-05-31] MEDS: metoPROLOL SUCCINATE 25 MG TAB.SR.24H (FP) PO SCH (10:22)
[2019-05-31] MEDS: PRENATAL VITAMINS W/ FOLIC ACID TABLET (FP) PO SCH (10:22)
[2019-05-31] MEDS: ASPIRIN 81 MG CHEWABLE TABLETS PO SCH (10:22)
[2019-05-31] MEDS: LISINOPRIL 10 MG TABLET (FP) PO SCH (10:22)
[2019-05-31] MEDS: POTASSIUM CHLORIDE TABS 20 MEQ TABLET.ER (FP) PO SCH ×2 (10:22→22:18)
[2019-05-31] MEDS: APIXABAN 5 MG TABLET PO SCH ×2 (10:22→22:18)
[2019-05-31] MEDS: THIAMINE HCL 100 MG TABLET (FP) PO SCH (22:18)
[2019-05-31] MEDS: MELATONIN 5 MG TABLETS PO PRN (22:18)
[2019-06-01] MEDS: hydrOXYzine PAMOATE 25 MG CAPSULE (FP) PO PRN (03:03)
[2019-06-01] MEDS: METHOCARBAMOL 500 MG TABLET PO PRN (03:03)
[2019-06-01] MEDS: metoPROLOL SUCCINATE 25 MG TAB.SR.24H (FP) PO SCH (09:18)
[2019-06-01] MEDS: ASPIRIN 81 MG CHEWABLE TABLETS PO SCH (09:18)
[2019-06-01] MEDS: LISINOPRIL 10 MG TABLET (FP) PO SCH (09:18)
[2019-06-01] MEDS: APIXABAN 5 MG TABLET PO SCH ×2 (09:18→21:10)
[2019-06-01] MEDS: NICOTINE 14 MG/24 HOURS TOPICAL PATCH TD SCH (09:21)
[2019-06-01] MEDS: PRENATAL VITAMINS W/ FOLIC ACID TABLET (FP) PO SCH (09:22)
[2019-06-01] MEDS ORDERED: METHADONE HCL 10 MG TABLET (FOR DETOX USE ONLY) PO ONE (10:00)
--- NOTE | 2019-06-01 15:45 | PN ---
BHS COWS - Scale Resting Pulse: 0= [place] 80 or Below Sweatin= Chills/Flushing Restless Observation: 1= Difficult to Sit Still Pupil Size: 1= Pupils >than Normal Bone or Joint Aches: 1= Mild Discomfort Runny Nose/ Eye Tearin= Nasal Congestion GI Upset > 30mins: 1= Stomach Cramp Tremor Observation of Outstretched Hands: 1= Tremor [place], Not Seen Yawning Observation: 1= 1-2x During Session Anxiety or Irritability: 2=Irritable/Anxious Goose Flesh Skin: 0=Smooth Skin COWS Score: 10 BHS Progress Note (SOAP) Subjective: alert,irritable,anxious,interrupted sleep,pain in the bnody and back Objective: 06/01/19 15:44 Vital Signs Temperature 98.3 F 06/01/19 13:22 Pulse Rate 56 L 06/01/19 13:22 Respiratory Rate 18 06/01/19 13:22 Blood Pressure 148/99 06/01/19 13:22 O2 Sat by Pulse Oximetry (%) Laboratory Last Values WBC 4.9 K/mm3 (4.0-10.0) 05/30/19 10:15 RBC 4.12 M/mm3 (4.00-5.60) 05/30/19 10:15 Hgb 13.5 GM/dL (11.7-16.9) 05/30/19 10:15 Hct 39.9 % (35.4-49) 05/30/19 10:15 MCV 96.8 fl (80-96) H 05/30/19 10:15 MCH 32.8 pg (25.7-33.7) 05/30/19 10:15 MCHC 33.9 g/dl (32.0-35.9) 05/30/19 10:15 RDW 15.7 % (11.9-15.9) 05/30/19 10:15 Plt Count 205 K/MM3 (134-434) D 05/30/19 10:15 MPV 9.2 fl (7.5-11.1) 05/30/19 10:15 Sodium 137 mmol/L (136-145) 05/30/19 10:15 Potassium 4.0 mmol/L (3.5-5.1) 06/01/19 09:27 Chloride 100 mmol/L (98-107) 05/30/19 10:15 Carbon Dioxide 32 mmol/L (21-32) 05/30/19 10:15 Anion Gap 6 MMOL/L (8-16) L 05/30/19 10:15 BUN 10.8 mg/dL (7-18) 05/30/19 10:15 Creatinine 1.0 mg/dL (0.55-1.3) 05/30/19 10:15 Est GFR (CKD-EPI)AfAm 99.15 05/30/19 10:15 Est GFR (CKD-EPI)NonAf 85.55 05/30/19 10:15 Random Glucose 82 mg/dL (74-106) 05/30/19 10:15 Calcium 9.4 mg/dL (8.5-10.1) 05/30/19 10:15 Total Bilirubin 0.7 mg/dL (0.2-1) 05/30/19 10:15 AST 23 U/L (15-37) 05/30/19 10:15 ALT 25 U/L (13-61) 05/30/19 10:15 Alkaline Phosphatase 65 U/L (45-117) 05/30/19 10:15 Total Protein 7.4 g/dl (6.4-8.2) 05/30/19 10:15 Albumin 4.0 g/dl (3.4-5.0) 05/30/19 10:15 RPR Titer Nonreactive (NONREACTIVE) 05/30/19 10:15 Assessment: 06/01/19 15:45 withdrawal symptom Plan: continue detox methadone rgimen
[2019-06-01] MEDS: MELATONIN 5 MG TABLETS PO PRN (21:10)
[2019-06-01] MEDS: THIAMINE HCL 100 MG TABLET (FP) PO SCH (21:10)
[2019-06-02] MEDS: diazePAM 5 MG TABLET PO PRN ×4 (06:20→22:12)
[2019-06-02] MEDS ORDERED: METHADONE HCL 5 MG TABLET (FOR DETOX USE ONLY) ONE (09:25)
[2019-06-02] MEDS ORDERED: METHADONE HCL 10 MG TABLET (FOR DETOX USE ONLY) ONE (09:25)
[2019-06-02] MEDS ORDERED: METHADONE (DETOX) 10 MG, METHADONE (DETOX) 5 MG PO ONE (10:00)
[2019-06-02] MEDS: APIXABAN 5 MG TABLET PO SCH ×2 (10:22→22:10)
[2019-06-02] MEDS: metoPROLOL SUCCINATE 25 MG TAB.SR.24H (FP) PO SCH (10:22)
[2019-06-02] MEDS: NICOTINE 14 MG/24 HOURS TOPICAL PATCH TD SCH (10:22)
[2019-06-02] MEDS: LISINOPRIL 10 MG TABLET (FP) PO SCH (10:22)
[2019-06-02] MEDS: PRENATAL VITAMINS W/ FOLIC ACID TABLET (FP) PO SCH (10:22)
[2019-06-02] MEDS: ASPIRIN 81 MG CHEWABLE TABLETS PO SCH (10:22)
--- NOTE | 2019-06-02 13:56 | PN ---
BHS COWS - Scale Resting Pulse: 0= [place] 80 or Below Sweatin= Chills/Flushing Restless Observation: 1= Difficult to Sit Still Pupil Size: 0= Normal to Room Light Bone or Joint Aches: 1= Mild Discomfort Runny Nose/ Eye Tearin= None GI Upset > 30mins: 0= None Tremor Observation of Outstretched Hands: 0= None Yawning Observation: 1= 1-2x During Session Anxiety or Irritability: 2=Irritable/Anxious Goose Flesh Skin: 0=Smooth Skin COWS Score: 6 BHS Progress Note (SOAP) Subjective: c/o anxiety, headache, and sweats. Objective: 06/02/19 13:54 Vital Signs 06/02/19 06/02/19 06/02/19 06:19 09:37 13:09 Temperature 98 F 98.5 F 97.1 F L Pulse Rate 53 L 96 H 55 L Respiratory 18 18 18 Rate Blood Pressure 129/81 136/91 130/93 Lab Results WBC 4.9 K/mm3 (4.0-10.0) 05/30/19 10:15 RBC 4.12 M/mm3 (4.00-5.60) 05/30/19 10:15 Hgb 13.5 GM/dL (11.7-16.9) 05/30/19 10:15 Hct 39.9 % (35.4-49) 05/30/19 10:15 MCV 96.8 fl (80-96) H 05/30/19 10:15 MCHC 33.9 g/dl (32.0-35.9) 05/30/19 10:15 RDW 15.7 % (11.9-15.9) 05/30/19 10:15 Plt Count 205 K/MM3 (134-434) D 05/30/19 10:15 Sodium 137 mmol/L (136-145) 05/30/19 10:15 Potassium 4.0 mmol/L (3.5-5.1) 06/01/19 09:27 Chloride 100 mmol/L (98-107) 05/30/19 10:15 Carbon Dioxide 32 mmol/L (21-32) 05/30/19 10:15 Anion Gap 6 MMOL/L (8-16) L 05/30/19 10:15 BUN 10.8 mg/dL (7-18) 05/30/19 10:15 Creatinine 1.0 mg/dL (0.55-1.3) 05/30/19 10:15 Random Glucose 82 mg/dL (74-106) 05/30/19 10:15 Calcium 9.4 mg/dL (8.5-10.1) 05/30/19 10:15 Laboratory Last Values WBC 4.9 K/mm3 (4.0-10.0) 05/30/19 10:15 RBC 4.12 M/mm3 (4.00-5.60) 05/30/19 10:15 Hgb 13.5 GM/dL (11.7-16.9) 05/30/19 10:15 Hct 39.9 % (35.4-49) 05/30/19 10:15 MCV 96.8 fl (80-96) H 05/30/19 10:15 MCH 32.8 pg (25.7-33.7) 05/30/19 10:15 MCHC 33.9 g/dl (32.0-35.9) 05/30/19 10:15 RDW 15.7 % (11.9-15.9) 05/30/19 10:15 Plt Count 205 K/MM3 (134-434) D 05/30/19 10:15 MPV 9.2 fl (7.5-11.1) 05/30/19 10:15 Sodium 137 mmol/L (136-145) 05/30/19 10:15 Potassium 4.0 mmol/L (3.5-5.1) 06/01/19 09:27 Chloride 100 mmol/L (98-107) 05/30/19 10:15 Carbon Dioxide 32 mmol/L (21-32) 05/30/19 10:15 Anion Gap 6 MMOL/L (8-16) L 05/30/19 10:15 BUN 10.8 mg/dL (7-18) 05/30/19 10:15 Creatinine 1.0 mg/dL (0.55-1.3) 05/30/19 10:15 Est GFR (CKD-EPI)AfAm 99.15 05/30/19 10:15 Est GFR (CKD-EPI)NonAf 85.55 05/30/19 10:15 Random Glucose 82 mg/dL (74-106) 05/30/19 10:15 Calcium 9.4 mg/dL (8.5-10.1) 05/30/19 10:15 Total Bilirubin 0.7 mg/dL (0.2-1) 05/30/19 10:15 AST 23 U/L (15-37) 05/30/19 10:15 ALT 25 U/L (13-61) 05/30/19 10:15 Alkaline Phosphatase 65 U/L (45-117) 05/30/19 10:15 Total Protein 7.4 g/dl (6.4-8.2) 05/30/19 10:15 Albumin 4.0 g/dl (3.4-5.0) 05/30/19 10:15 RPR Titer Nonreactive (NONREACTIVE) 05/30/19 10:15 Labs noted. Assessment: 06/02/19 13:55 AOX3, in no acute respiratory distress. Full rom, ambulating in the unit. Withdrawal symptoms. Plan: continue detox.
[2019-06-02] MEDS: THIAMINE HCL 100 MG TABLET (FP) PO SCH (22:10)
[2019-06-02] MEDS: MELATONIN 5 MG TABLETS PO PRN (22:12)
[2019-06-03] MEDS: diazePAM 5 MG TABLET PO PRN ×5 (07:08→22:25)
[2019-06-03] MEDS ORDERED: METHADONE HCL 10 MG TABLET (FOR DETOX USE ONLY) PO ONE (10:00)
[2019-06-03] MEDS: metoPROLOL SUCCINATE 25 MG TAB.SR.24H (FP) PO SCH (10:29)
[2019-06-03] MEDS: PRENATAL VITAMINS W/ FOLIC ACID TABLET (FP) PO SCH (10:29)
[2019-06-03] MEDS: METHOCARBAMOL 500 MG TABLET PO PRN (10:29)
[2019-06-03] MEDS: LISINOPRIL 10 MG TABLET (FP) PO SCH (10:29)
[2019-06-03] MEDS: APIXABAN 5 MG TABLET PO SCH ×2 (10:29→21:09)
[2019-06-03] MEDS: NICOTINE 14 MG/24 HOURS TOPICAL PATCH TD SCH (10:30)
[2019-06-03] MEDS: ASPIRIN 81 MG CHEWABLE TABLETS PO SCH (10:30)
--- NOTE | 2019-06-03 14:49 | PN ---
BHS COWS - Scale Resting Pulse: 0= [place] 80 or Below Sweatin= Chills/Flushing Restless Observation: 0= Sits Still Pupil Size: 0= Normal to Room Light Bone or Joint Aches: 0= None Runny Nose/ Eye Tearin= None GI Upset > 30mins: 0= None Tremor Observation of Outstretched Hands: 1= Tremor [place], Not Seen Yawning Observation: 0= None Anxiety or Irritability: 1=Feels Anxious/Irritable Goose Flesh Skin: 0=Smooth Skin COWS Score: 3 BHS Progress Note (SOAP) Subjective: 53 years old male admitted on 05/30/19 for opiate withdrawal sx management treated with methadone detox regimen patient tolerated well feeling better mild body aches sleep better at night Objective: 06/03/19 14:48 Vital Signs Temperature 96.4 F L 06/03/19 09:10 Pulse Rate 58 L 06/03/19 09:10 Respiratory Rate 18 06/03/19 09:10 Blood Pressure 119/83 06/03/19 09:10 O2 Sat by Pulse Oximetry (%) Laboratory Last Values WBC 4.9 K/mm3 (4.0-10.0) 05/30/19 10:15 RBC 4.12 M/mm3 (4.00-5.60) 05/30/19 10:15 Hgb 13.5 GM/dL (11.7-16.9) 05/30/19 10:15 Hct 39.9 % (35.4-49) 05/30/19 10:15 MCV 96.8 fl (80-96) H 05/30/19 10:15 MCH 32.8 pg (25.7-33.7) 05/30/19 10:15 MCHC 33.9 g/dl (32.0-35.9) 05/30/19 10:15 RDW 15.7 % (11.9-15.9) 05/30/19 10:15 Plt Count 205 K/MM3 (134-434) D 05/30/19 10:15 MPV 9.2 fl (7.5-11.1) 05/30/19 10:15 Sodium 137 mmol/L (136-145) 05/30/19 10:15 Potassium 4.0 mmol/L (3.5-5.1) 06/01/19 09:27 Chloride 100 mmol/L (98-107) 05/30/19 10:15 Carbon Dioxide 32 mmol/L (21-32) 05/30/19 10:15 Anion Gap 6 MMOL/L (8-16) L 05/30/19 10:15 BUN 10.8 mg/dL (7-18) 05/30/19 10:15 Creatinine 1.0 mg/dL (0.55-1.3) 05/30/19 10:15 Est GFR (CKD-EPI)AfAm 99.15 05/30/19 10:15 Est GFR (CKD-EPI)NonAf 85.55 05/30/19 10:15 Random Glucose 82 mg/dL (74-106) 05/30/19 10:15 Calcium 9.4 mg/dL (8.5-10.1) 05/30/19 10:15 Total Bilirubin 0.7 mg/dL (0.2-1) 05/30/19 10:15 AST 23 U/L (15-37) 05/30/19 10:15 ALT 25 U/L (13-61) 05/30/19 10:15 Alkaline Phosphatase 65 U/L (45-117) 05/30/19 10:15 Total Protein 7.4 g/dl (6.4-8.2) 05/30/19 10:15 Albumin 4.0 g/dl (3.4-5.0) 05/30/19 10:15 RPR Titer Nonreactive (NONREACTIVE) 05/30/19 10:15 lab noted Assessment: 06/03/19 14:48 opiate withdrawal sx discuss medication assisted treatment program Plan: continue methadone detox regimen picker and sorter load and unload narcan from pharmacy
[2019-06-03] MEDS: THIAMINE HCL 100 MG TABLET (FP) PO SCH (21:09)
[2019-06-03] MEDS: MELATONIN 5 MG TABLETS PO PRN (21:10)
[2019-06-04] MEDS ORDERED: METHADONE HCL 5 MG TABLET (FOR DETOX USE ONLY) PO ONE (06:00)
[2019-06-04 06:28] VITALS: BP 132/93; PULSE 58; TEMP 95.9
--- NOTE | 2019-06-04 11:16 | DS ---
[facility] Detox Discharge Summary Admission Date: 05/30/19 Discharge Date: 06/04/19 - History Present History: Opioid Dependence Additional Comments: 53 years old male admitted on 05/30/19 for opiate withdrawal sx management treated with methadone detox regimen patient completed detox regimen left detox unit around 7 am today ghost writer has not assessed nor evaluated the patient prior to discharge off the unit - Physical Exam Results Vital Signs: Vital Signs Temperature 95.9 F L 06/04/19 06:28 Pulse Rate 58 L 06/04/19 06:28 Respiratory Rate 18 06/04/19 06:28 Blood Pressure 132/93 06/04/19 06:28 O2 Sat by Pulse Oximetry (%) Pertinent Admission Physical Exam Findings: opiate withdrawal sx Laboratory Last Values WBC 4.9 K/mm3 (4.0-10.0) 05/30/19 10:15 RBC 4.12 M/mm3 (4.00-5.60) 05/30/19 10:15 Hgb 13.5 GM/dL (11.7-16.9) 05/30/19 10:15 Hct 39.9 % (35.4-49) 05/30/19 10:15 MCV 96.8 fl (80-96) H 05/30/19 10:15 MCH 32.8 pg (25.7-33.7) 05/30/19 10:15 MCHC 33.9 g/dl (32.0-35.9) 05/30/19 10:15 RDW 15.7 % (11.9-15.9) 05/30/19 10:15 Plt Count 205 K/MM3 (134-434) D 05/30/19 10:15 MPV 9.2 fl (7.5-11.1) 05/30/19 10:15 Sodium 137 mmol/L (136-145) 05/30/19 10:15 Potassium 4.0 mmol/L (3.5-5.1) 06/01/19 09:27 Chloride 100 mmol/L (98-107) 05/30/19 10:15 Carbon Dioxide 32 mmol/L (21-32) 05/30/19 10:15 Anion Gap 6 MMOL/L (8-16) L 05/30/19 10:15 BUN 10.8 mg/dL (7-18) 05/30/19 10:15 Creatinine 1.0 mg/dL (0.55-1.3) 05/30/19 10:15 Est GFR (CKD-EPI)AfAm 99.15 05/30/19 10:15 Est GFR (CKD-EPI)NonAf 85.55 05/30/19 10:15 Random Glucose 82 mg/dL (74-106) 05/30/19 10:15 Calcium 9.4 mg/dL (8.5-10.1) 05/30/19 10:15 Total Bilirubin 0.7 mg/dL (0.2-1) 05/30/19 10:15 AST 23 U/L (15-37) 05/30/19 10:15 ALT 25 U/L (13-61) 05/30/19 10:15 Alkaline Phosphatase 65 U/L (45-117) 05/30/19 10:15 Total Protein 7.4 g/dl (6.4-8.2) 05/30/19 10:15 Albumin 4.0 g/dl (3.4-5.0) 05/30/19 10:15 RPR Titer Nonreactive (NONREACTIVE) 05/30/19 10:15 lab noted - Treatment Hospital Course: Detox Protocol Followed, Detoxed Safely, Responded well, Discharged Condition Good (based on nursing report), Rehab Referral Accepted Patient has Accepted [facility] Referral [facility] - Medication Discharge Medications: Ambulatory Orders Aspirin [ASA -] 81 mg PO DAILY 11/07/18 Apixaban [Eliquis -] 5 mg PO BID #60 tablet 03/21/19 Lisinopril [Prinivil] 10 mg PO DAILY #30 tablet 03/21/19 Metoprolol Succinate [Toprol XL -] 25 mg PO DAILY #30 tab.sr.24h 03/21/19 Naloxone HCl [Narcan] 4 mg NS ASDIR PRN #1 spray 06/03/19 - Diagnosis (1) Opioid dependence, uncomplicated Status: Acute (2) Nicotine dependence Status: Acute Qualifiers: Nicotine product type: cigarettes Substance use status: in withdrawal Qualified Code(s): F17.213 - Nicotine dependence, cigarettes, with withdrawal (3) Weight loss Status: Acute (4) HTN (hypertension) Status: Chronic Qualifiers: Hypertension type: unspecified Qualified Code(s): I10 - Essential (primary ) hypertension - AMA Did Patient Leave Against Medical Advice: No
== END 2019-06-04 07:03 | disposition home or self-care (01) | DRG 897 ==
LOC: YASAS 08:53 → Y3N 10:20
PROVIDERS: ADMIT Allergy & Immunology; ATTEND Allergy & Immunology
PROC: HZ2ZZZZ Detoxification Services for Substance Abuse Treatment (ICD-10-PCS; principal; 2019-05-30)
DX: F11.23 Opioid dependence with withdrawal (principal); F10.10 Alcohol abuse, uncomplicated; F14.10 Cocaine abuse, uncomplicated; F17.210 Nicotine dependence, cigarettes, uncomplicated; I10 Essential (primary) hypertension; E78.5 Hyperlipidemia, unspecified; H91.93 Unspecified hearing loss, bilateral; R63.4 Abnormal weight loss; Z86.73 Personal history of transient ischemic attack (TIA), and cerebral infarction without residual deficits; Z95.810 Presence of automatic (implantable) cardiac defibrillator; Z68.21 Body mass index [BMI] 21.0-21.9, adult; Z91.02 Food additives allergy status; Z88.6 Allergy status to analgesic agent; Z59.0 Homelessness
CPT/HCPCS: 36415; 80053; 84132; 85027; 86593; J0735

== ENCOUNTER 2019-06-16 08:10 | Inpatient (IN) | payer OTHER ==
[2019-06-16 08:47] VITALS: BMI 21.6
--- NOTE | 2019-06-16 09:18 | HP ---
COWS - Scale Resting Pulse: 0= [place] 80 or Below Sweatin= Chills/Flushing Restless Observation: 1= Difficult to Sit Still Pupil Size: 0= Normal to Room Light Bone or Joint Aches: 2= Severe Diffuse Aches Runny Nose/ Eye Tearin= Runny Nose/Eyes GI Upset > 30mins: 2= Nausea/Diarrhea Tremor Observation: 2= Slight Tremor Visible Yawning Observation: 1= 1-2x During Session Anxiety or Irritability: 1=Feels Anxious/Irritable Goose Flesh Skin: 0=Smooth Skin COWS Score: 12 CIWA Score Nausea/Vomitin Muscle Tremors: 4-Moderate,w/Arms Extend Anxiety: 4-Mod. Anxious/Guarded Agitation: 1-Slight > Activity Paroxysmal Sweats: No Perspiration Orientation: 0-Oriented Tacttile Disturbances: 1-Very Mild Itch/Numbness Auditory Disturbances: 1-Very Mild Visual Disturbances: 1-Very Mild Sensitivity Headache: 2-Mild CIWA-Ar Total Score: 16 - Admission Criteria OASAS Guidelines: Admission for Medically Managed Detox: Requires at least one of the followin. CIWA greater than 12 2. Seizures within the past 24 hours 3. Delirium tremens within the past 24 hours 4. Hallucinations within the past 24 hours 5. Acute intervention needed for co occurring medical disorder 6. Acute intervention needed for co occurring psychiatric disorder 7. Severe withdrawal that cannot be handled at a lower level of care (continued vomiting, continued diarrhea, abnormal vital signs) requiring intravenous medication and/or fluids 8. 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 Cardiovascular: Yes: Murmur - Social History Usual Living Arrangement: Yes: With Significant Other ADL: Support Services Occupation: disabled due to stroke in 2014 Admission ROS BHS - HPI Chief Complaint: I want to try one more time, try to get it right, I'm tired of waking up with withdrawals Allergies/Adverse Reactions: Allergies Allergy/AdvReac Type Severity Reaction Status Date / Time ibuprofen Allergy Intermediate Nausea Verified 06/16/19 08:42 lactose Allergy Intermediate Vomiting Verified 06/16/19 08:42 History of Present Illness: 53 yo gentleman here for detox from opiates and alcohol, also using cocaine. This is one of multiple admissions for treatment - last here 05/30/19 for detox - states his insurance would not cover rehab and he relapsed within a few days of discharge. Denies seizures or overdose, but does have black outs. Usually drinks first thing in the morning to quell symptoms and uses heroin all day - denies using benzo separately (urine tox + bzo) and thinks it is cut into cocaine or heroin. He lives with his fiance, is on disability. Exam Limitations: Clinical Condition - Ebola screening Have you traveled outside of the country in the last 21 days: No (N) Have you had contact with anyone from an Ebola affected area: No Do you have a fever: No - Review of Systems Constitutional: Loss of Appetite, Malaise, Changes in sleep, Weakness, Unintentional Wgt. Loss EENT: reports: Tearing, Nose Congestion Respiratory: reports: No Symptoms reported Cardiac: reports: No Symptoms Reported GI: reports: Nausea, Poor Appetite, Indigestion : reports: Frequency Musculoskeletal: reports: Back Pain, Muscle Pain, Muscle Weakness Neuro: reports: Headache, Tingling, Tremors, Weakness Endocrine: reports: No Symptoms Reported Hematology: reports: No Symptoms Reported Psychiatric: reports: Judgement Intact, Mood/Affect Appropiate, Anxious Other Systems: Reviewed and Negative Patient History - Patient Medical History Hx Anemia: No Hx Asthma: No Hx Chronic Obstructive Pulmonary Disease (COPD): No Hx Cancer: No (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 BPH nocturia) Hx Sexually Transmitted Disorders: No Hx Renal Disease (ESRD): No Hx Thyroid Disease: No Hx Human Immunodeficiency Virus (HIV): No (last 09/12) Hx Hepatitis C: No Hx Depression: No Hx Suicide Attempt: No Hx Bipolar Disorder: No Hx Schizophrenia: No - Patient Surgical History Past Surgical History: Yes Hx Neurologic Surgery: No Hx Cataract Extraction: No Hx Cardiac Surgery: Yes (Implanted defibrillator 2013; excision mediasinal myxoid tumor 2014 at [facility]) Hx Lung Surgery: No Hx Breast Surgery: No Hx Breast Biopsy: No Hx Abdominal Surgery: No Hx Appendectomy: No Hx Cholecystectomy: No Hx Genitourinary Surgery: No Hx Section: No Hx Orthopedic Surgery: Yes (right shuolder ) Anesthesia Reaction: No - PPD History Previous Implant?: Yes Documented Results: Negative w/proof Date: 11/09/18 Results: 0mm PPD to be Administered?: No - Reproductive History Patient is a Female of Child Bearing Age (11 -55 yrs old): No - Smoking Cessation Smoking history: Current every day smoker Have you smoked in the past 12 months: Yes Aproximately how many cigarettes per day: 20 Hx Chewing Tobacco Use: No Initiated information on smoking cessation: Yes 'Breaking Loose' booklet given: 06/16/19 (give on floor) - Substance & Tx. History Hx Alcohol Use: Yes Hx Substance Use: Yes Substance Use Type: Alcohol, Cocaine, Heroin, Opiates Hx Substance Use Treatment: Yes (detox, [facility] in past, ) - Substances abused Heroin Substance route: Inhalation Frequency: Daily Amount used: 13 bags Age of first use: 20 Date of last use: 06/15/19 Cocaine Substance route: Inhalation Frequency: 1-3 times last 30 days Amount used: $20 Age of first use: 21 Date of last use: 06/15/19 Alcohol Substance route: Oral Frequency: 3-6 times per week Amount used: 2 shots vodka Age of first use: 15 Date of last use: 06/15/19 Admission Physical Exam S - Vital Signs Vital Signs: Vital Signs - 24 hr 06/16/19 08:41 Temperature 98.0 F Pulse Rate 70 Respiratory 20 Rate Blood Pressure 135/94 - Physical General Appearance: Yes: Nourished, Appropriately Dressed, Moderate Distress, Tremorous, Irritable, Anxious HEENTM: Yes: EOMI, Normocephalic, Normal Voice, Pharynx Normal, Hearing Decreased, Nasal Congestion Respiratory: Yes: Normal Breath Sounds, No Respiratory Distress Neck: Yes: No masses,lesions,Nodules Breast: Yes: Breast Exam Deferred Cardiology: Yes: Regular Rhythm, Regular Rate, Surgical Scar, Other (implanted defib upper left chest) Abdominal: Yes: Flat, Soft Genitourinary: Yes: Frequency, Nocturia Back: Yes: Normal Inspection Musculoskeletal: Yes: full range of Motion, Back pain, Muscle weakness (left arm weakness) Extremities: Yes: Normal Inspection, Non-Tender, Tremors Neurological: Yes: Fully Oriented, Alert, Normal Mood/Affect, Normal Response, Numbness Integumentary: Yes: Normal Color, Warm Lymphatic: Yes: Within Normal Limits - Diagnostic (1) Opioid dependence with withdrawal Current Visit: Yes Status: Chronic (2) Alcohol dependence with withdrawal, uncomplicated Current Visit: Yes Status: Chronic (3) History of stroke Current Visit: Yes Status: Chronic Comment: some left arm weakness (4) Nicotine dependence Current Visit: Yes Status: Acute Qualifiers: Nicotine product type: cigarettes Substance use status: in withdrawal Qualified Code(s): F17.213 - Nicotine dependence, cigarettes, with withdrawal (5) Weight loss Current Visit: No Status: Acute (6) Nonischemic cardiomyopathy Current Visit: Yes Status: Acute (7) Cardiac defibrillator in place Current Visit: Yes Status: Chronic (8) Cocaine abuse Current Visit: Yes Status: Chronic (9) HTN (hypertension) Current Visit: Yes Status: Chronic Qualifiers: Hypertension type: unspecified Qualified Code(s): I10 - Essential (primary ) hypertension (10) Hearing decreased Current Visit: Yes Status: Chronic Qualifiers: Laterality: bilateral Qualified Code(s): H91.93 - Unspecified hearing loss , bilateral Cleared for Admission S - Detox or Rehab [facility] Level of Care: Medically Managed Detox Regimen/Protocol: Methadone/Valium Breathalyzer - Breathalyzer Breathalyzer: 0 Urine Drug Screen - Test Device Lot number: [id number] Expiration date: 01/21/21 - Control Is test valid?: Yes - Results Drug screen NEGATIVE: No Urine drug screen results: DALTON-Cocaine, FEN-Fentanyl, MOP-Opiates, OXY-Oxycodone Inpatient Rehab Admission - Rehab Decision to Admit Inpatient rehab admission?: No
[2019-06-16] MEDS ORDERED: ACETAMINOPHEN 325 MG TABLET (FP) PO PRN ×2 (09:30)
[2019-06-16] MEDS ORDERED: MAGNESIUM CITRATE 300 ML BOTTLE PO PRN (09:30)
[2019-06-16] MEDS ORDERED: MAGNESIUM HYDROX 2400MG/30ML ORAL SUSPENSION 30 ML CUP PO PRN (09:30)
[2019-06-16] MEDS ORDERED: MENTHOL/PHENOL 1 EACH UD MM PRN (09:30)
[2019-06-16] MEDS ORDERED: MAG HYDROX/AL HYDROX/SIMETH 30 ML UNIT-DOSE CUP PO PRN (09:30)
[2019-06-16] MEDS ORDERED: cloNIDine HCL 0.1 MG TABLET PO PRN (09:30)
[2019-06-16] MEDS ORDERED: BACLOFEN 10 MG TABLET (FP) PO PRN (09:30)
[2019-06-16] MEDS ORDERED: METHADONE HCL 10 MG TABLET (FOR DETOX USE ONLY) PO ONE (09:30)
[2019-06-16] MEDS: APIXABAN 5 MG TABLET PO SCH ×2 (12:00→22:36)
[2019-06-16] MEDS: ASPIRIN 81 MG CHEWABLE TABLETS PO SCH (12:00)
[2019-06-16] MEDS: LISINOPRIL 10 MG TABLET (FP) PO SCH (12:41)
[2019-06-16] MEDS: metoPROLOL SUCCINATE 25 MG TAB.SR.24H (FP) PO SCH (12:42)
[2019-06-16] MEDS: PRENATAL VITAMINS W/ FOLIC ACID TABLET (FP) PO SCH (12:42)
[2019-06-16] MEDS: NICOTINE 21 MG/24 HOURS TOPICAL PATCH TD SCH (12:42)
[2019-06-16] MEDS: diazePAM 5 MG TABLET PO SCH ×2 (13:44→22:35)
[2019-06-16 16:22] LABS: HEMATOCRIT 39.9 % (35.4-49); HEMOGLOBIN 13.3 GM/dL (11.7-16.9); MCH 32.5 pg (25.7-33.7); MCHC 33.4 g/dl (32.0-35.9); MEAN CELL VOLUME 97.5 fl (80-96); MEAN PLT VOLUME 8.7 fl (7.5-11.1); PLATELET COUNT 226 K/MM3 (134-434); RDW 14.6 % (11.9-15.9); WHITE BLOOD COUNT 4.1 K/mm3 (4.0-10.0)
[2019-06-16 16:32] LABS: ALBUMIN 3.8 g/dl (3.4-5.0); BILIRUBIN,TOTAL 0.6 mg/dL (0.2-1); BLOOD UREA NITROGEN 14.6 mg/dL (7-18); CALCIUM 9.1 mg/dL (8.5-10.1); POTASSIUM 3.9 mmol/L (3.5-5.1); TOT PROT 7.2 g/dl (6.4-8.2)
[2019-06-16] MEDS: diazePAM 5 MG TABLET PO PRN (17:39)
[2019-06-16] MEDS: THIAMINE HCL 100 MG TABLET (FP) PO SCH (22:35)
[2019-06-16] MEDS: MELATONIN 5 MG TABLETS PO PRN (22:36)
[2019-06-17] MEDS: diazePAM 5 MG TABLET PO SCH ×3 (07:00→21:05)
[2019-06-17] MEDS ORDERED: METHADONE (DETOX) 20 MG, METHADONE (DETOX) 5 MG PO ONE (10:00)
[2019-06-17] MEDS: metoPROLOL SUCCINATE 25 MG TAB.SR.24H (FP) PO SCH (10:02)
[2019-06-17] MEDS: LISINOPRIL 10 MG TABLET (FP) PO SCH (10:02)
[2019-06-17] MEDS: ASPIRIN 81 MG CHEWABLE TABLETS PO SCH (10:02)
[2019-06-17] MEDS: NICOTINE 21 MG/24 HOURS TOPICAL PATCH TD SCH (10:03)
[2019-06-17] MEDS: APIXABAN 5 MG TABLET PO SCH ×2 (10:03→21:05)
[2019-06-17] MEDS: PRENATAL VITAMINS W/ FOLIC ACID TABLET (FP) PO SCH (10:03)
[2019-06-17] MEDS ORDERED: METHADONE HCL 5 MG TABLET (FOR DETOX USE ONLY) ONE (10:05)
[2019-06-17] MEDS ORDERED: METHADONE HCL 10 MG TABLET (FOR DETOX USE ONLY) ONE (10:05)
--- NOTE | 2019-06-17 14:24 | PN ---
[facility] CIWA - CIWA Score Nausea/Vomitin-Mild Nausea/No Vomiting Muscle Tremors: 4-Moderate,w/Arms Extend Anxiety: 3 Agitation: 3 Paroxysmal Sweats: 3 Orientation: 0-Oriented Tacttile Disturbances: 0-None Auditory Disturbances: 0-None Visual Disturbances: 0-None Headache: 0-None Present CIWA-Ar Total Score: 14 BHS COWS - Scale Resting Pulse: 0= [place] 80 or Below Sweatin= Chills/Flushing Restless Observation: 3= Extraneous Movement Pupil Size: 0= Normal to Room Light Bone or Joint Aches: 2= Severe Diffuse Aches Runny Nose/ Eye Tearin= Runny Nose/Eyes GI Upset > 30mins: 2= Nausea/Diarrhea Tremor Observation of Outstretched Hands: 2= Slight Tremor Visible Yawning Observation: 0= None Anxiety or Irritability: 2=Irritable/Anxious Goose Flesh Skin: 0=Smooth Skin COWS Score: 14 S Progress Note (SOAP) Subjective: Sweating, chills, tremor, constipation x 2 days (patient instructed to notify RN and to request medication for constipation), interrupted sleep Objective: 06/17/19 14:19 Last Vital Signs Temp Pulse Resp BP Pulse Ox 97.9 F 53 L 16 152/100 06/17/19 13:35 06/17/19 13:35 06/17/19 13:35 06/17/19 13:35 Elevated b/p noted 152/100 (has HTN, on medication) Laboratory Tests 06/16/19 06/16/19 06/16/19 10:00 10:00 10:00 WBC 4.1 RBC 4.10 Hgb 13.3 Hct 39.9 MCV 97.5 H MCH 32.5 MCHC 33.4 RDW 14.6 Plt Count 226 MPV 8.7 Sodium 141 Potassium 3.9 Chloride 106 Carbon Dioxide 33 H Anion Gap 2 L BUN 14.6 Creatinine 1.0 Est GFR (CKD-EPI)AfAm 99.15 Est GFR (CKD-EPI)NonAf 85.55 Random Glucose 49 L* Calcium 9.1 Total Bilirubin 0.6 AST 17 ALT 21 Alkaline Phosphatase 70 Total Protein 7.2 Albumin 3.8 RPR Titer Nonreactive Labs reviewed: serum glucose 49 (low) Assessment: 06/17/19 14:21 Withdrawal sxs Noted with elevated b/p and hypoglycemia Plan: Continue detox Encouraged PO water intake HTN: continue antihypertensive medications and prn clonidine, low sodium diet, monitor b/p Hypoglycemia: denies dm or any glucose problems, could be r/t starvation/hunger , repeat fasting glucose in AM, check A1c
[2019-06-17] MEDS: diazePAM 5 MG TABLET PO PRN (17:30)
[2019-06-17] MEDS: THIAMINE HCL 100 MG TABLET (FP) PO SCH (21:05)
[2019-06-17] MEDS: QUEtiapine FUMARATE 50 MG TABLET PO PRN (21:06)
[2019-06-18] MEDS: diazePAM 5 MG TABLET PO SCH ×2 (06:22→17:31)
[2019-06-18] MEDS: NICOTINE 21 MG/24 HOURS TOPICAL PATCH TD SCH (09:28)
[2019-06-18] MEDS: LISINOPRIL 10 MG TABLET (FP) PO SCH (09:28)
[2019-06-18] MEDS: PRENATAL VITAMINS W/ FOLIC ACID TABLET (FP) PO SCH (09:28)
[2019-06-18] MEDS: metoPROLOL SUCCINATE 25 MG TAB.SR.24H (FP) PO SCH (09:28)
[2019-06-18] MEDS: ASPIRIN 81 MG CHEWABLE TABLETS PO SCH (09:28)
[2019-06-18] MEDS ORDERED: METHADONE HCL 10 MG TABLET (FOR DETOX USE ONLY) PO ONE (10:00)
--- NOTE | 2019-06-18 10:26 | PN ---
[facility] CIWA - CIWA Score Nausea/Vomitin-Mild Nausea/No Vomiting Muscle Tremors: 1-None Visible, but [place] Anxiety: 2 Agitation: 2 Paroxysmal Sweats: No Perspiration Orientation: 0-Oriented Tacttile Disturbances: 1-Very Mild Itch/Numbness Auditory Disturbances: 0-None Visual Disturbances: 0-None Headache: 2-Mild CIWA-Ar Total Score: 9 BHS COWS - Scale Resting Pulse: 0= [place] 80 or Below Sweatin= No chills or Flushing Restless Observation: 1= Difficult to Sit Still Pupil Size: 1= Pupils >than Normal Bone or Joint Aches: 1= Mild Discomfort Runny Nose/ Eye Tearin= Nasal Congestion GI Upset > 30mins: 1= Stomach Cramp Tremor Observation of Outstretched Hands: 2= Slight Tremor Visible Yawning Observation: 0= None Anxiety or Irritability: 2=Irritable/Anxious Goose Flesh Skin: 0=Smooth Skin COWS Score: 9 S Progress Note (SOAP) Subjective: alert,irritable,anxious,interrupted sleep,pain in the body and back,extremities Objective: 06/18/19 10:24 Vital Signs Temperature 97.5 F L 06/18/19 09:14 Pulse Rate 68 06/18/19 09:14 Respiratory Rate 18 06/18/19 09:14 Blood Pressure 140/80 06/18/19 09:14 O2 Sat by Pulse Oximetry (%) Laboratory Last Values WBC 4.1 K/mm3 (4.0-10.0) 06/16/19 10:00 RBC 4.10 M/mm3 (4.00-5.60) 06/16/19 10:00 Hgb 13.3 GM/dL (11.7-16.9) 06/16/19 10:00 Hct 39.9 % (35.4-49) 06/16/19 10:00 MCV 97.5 fl (80-96) H 06/16/19 10:00 MCH 32.5 pg (25.7-33.7) 06/16/19 10:00 MCHC 33.4 g/dl (32.0-35.9) 06/16/19 10:00 RDW 14.6 % (11.9-15.9) 06/16/19 10:00 Plt Count 226 K/MM3 (134-434) 06/16/19 10:00 MPV 8.7 fl (7.5-11.1) 06/16/19 10:00 Sodium 141 mmol/L (136-145) 06/16/19 10:00 Potassium 3.9 mmol/L (3.5-5.1) 06/16/19 10:00 Chloride 106 mmol/L (98-107) 06/16/19 10:00 Carbon Dioxide 33 mmol/L (21-32) H 06/16/19 10:00 Anion Gap 2 MMOL/L (8-16) L 06/16/19 10:00 BUN 14.6 mg/dL (7-18) 06/16/19 10:00 Creatinine 1.0 mg/dL (0.55-1.3) 06/16/19 10:00 Est GFR (CKD-EPI)AfAm 99.15 06/16/19 10:00 Est GFR (CKD-EPI)NonAf 85.55 06/16/19 10:00 Random Glucose 49 mg/dL (74-106) L* 06/16/19 10:00 Fasting Glucose 79 mg/dL (74-106) 06/18/19 08:00 Hemoglobin A1c % 5.2 % (4.2-6.3) 06/18/19 08:00 Calcium 9.1 mg/dL (8.5-10.1) 06/16/19 10:00 Total Bilirubin 0.6 mg/dL (0.2-1) 06/16/19 10:00 AST 17 U/L (15-37) 06/16/19 10:00 ALT 21 U/L (13-61) 06/16/19 10:00 Alkaline Phosphatase 70 U/L (45-117) 06/16/19 10:00 Total Protein 7.2 g/dl (6.4-8.2) 06/16/19 10:00 Albumin 3.8 g/dl (3.4-5.0) 06/16/19 10:00 RPR Titer Nonreactive (NONREACTIVE) 06/16/19 10:00 Assessment: 06/18/19 10:25 withdrawal symptom Plan: continue detox methadone and valium regimen,bgm daily,ensure plus supplement
[2019-06-18] MEDS: APIXABAN 5 MG TABLET PO SCH ×2 (11:14→21:05)
[2019-06-18] MEDS: diazePAM 5 MG TABLET PO PRN ×2 (11:16→23:53)
[2019-06-18] MEDS: THIAMINE HCL 100 MG TABLET (FP) PO SCH (21:04)
[2019-06-18] MEDS: QUEtiapine FUMARATE 50 MG TABLET PO PRN (21:05)
[2019-06-19] MEDS ORDERED: diazePAM 5 MG TABLET PO ONE (06:00)
[2019-06-19] MEDS ORDERED: METHADONE HCL 5 MG TABLET (FOR DETOX USE ONLY) ONE (08:39)
[2019-06-19] MEDS ORDERED: METHADONE HCL 10 MG TABLET (FOR DETOX USE ONLY) ONE (08:39)
--- NOTE | 2019-06-19 09:54 | PN ---
[facility] CIWA - CIWA Score Nausea/Vomitin-Mild Nausea/No Vomiting Muscle Tremors: 1-None Visible, but [place] Anxiety: 2 Agitation: 2 Paroxysmal Sweats: No Perspiration Orientation: 0-Oriented Tacttile Disturbances: 1-Very Mild Itch/Numbness Auditory Disturbances: 0-None Visual Disturbances: 0-None Headache: 1-Very Mild CIWA-Ar Total Score: 8 BHS COWS - Scale Resting Pulse: 1= [place] 81-100 Sweatin= No chills or Flushing Restless Observation: 1= Difficult to Sit Still Pupil Size: 0= Normal to Room Light Bone or Joint Aches: 1= Mild Discomfort Runny Nose/ Eye Tearin= Nasal Congestion GI Upset > 30mins: 1= Stomach Cramp Tremor Observation of Outstretched Hands: 1= Tremor [place], Not Seen Yawning Observation: 1= 1-2x During Session Anxiety or Irritability: 2=Irritable/Anxious Goose Flesh Skin: 0=Smooth Skin COWS Score: 9 [facility] Progress Note (SOAP) Subjective: alert,irritable,anxious,interrupted sleep,pain in the body Objective: 06/19/19 09:53 Vital Signs Temperature 98.4 F 06/19/19 09:19 Pulse Rate 84 06/19/19 09:19 Respiratory Rate 18 06/19/19 09:19 Blood Pressure 126/99 06/19/19 09:19 O2 Sat by Pulse Oximetry (%) Laboratory Last Values WBC 4.1 K/mm3 (4.0-10.0) 06/16/19 10:00 RBC 4.10 M/mm3 (4.00-5.60) 06/16/19 10:00 Hgb 13.3 GM/dL (11.7-16.9) 06/16/19 10:00 Hct 39.9 % (35.4-49) 06/16/19 10:00 MCV 97.5 fl (80-96) H 06/16/19 10:00 MCH 32.5 pg (25.7-33.7) 06/16/19 10:00 MCHC 33.4 g/dl (32.0-35.9) 06/16/19 10:00 RDW 14.6 % (11.9-15.9) 06/16/19 10:00 Plt Count 226 K/MM3 (134-434) 06/16/19 10:00 MPV 8.7 fl (7.5-11.1) 06/16/19 10:00 Sodium 141 mmol/L (136-145) 06/16/19 10:00 Potassium 3.9 mmol/L (3.5-5.1) 06/16/19 10:00 Chloride 106 mmol/L (98-107) 06/16/19 10:00 Carbon Dioxide 33 mmol/L (21-32) H 06/16/19 10:00 Anion Gap 2 MMOL/L (8-16) L 06/16/19 10:00 BUN 14.6 mg/dL (7-18) 06/16/19 10:00 Creatinine 1.0 mg/dL (0.55-1.3) 06/16/19 10:00 Est GFR (CKD-EPI)AfAm 99.15 06/16/19 10:00 Est GFR (CKD-EPI)NonAf 85.55 06/16/19 10:00 Random Glucose 49 mg/dL (74-106) L* 06/16/19 10:00 Fasting Glucose 79 mg/dL (74-106) 06/18/19 08:00 Hemoglobin A1c % 5.2 % (4.2-6.3) 06/18/19 08:00 Calcium 9.1 mg/dL (8.5-10.1) 06/16/19 10:00 Total Bilirubin 0.6 mg/dL (0.2-1) 06/16/19 10:00 AST 17 U/L (15-37) 06/16/19 10:00 ALT 21 U/L (13-61) 06/16/19 10:00 Alkaline Phosphatase 70 U/L (45-117) 06/16/19 10:00 Total Protein 7.2 g/dl (6.4-8.2) 06/16/19 10:00 Albumin 3.8 g/dl (3.4-5.0) 06/16/19 10:00 RPR Titer Nonreactive (NONREACTIVE) 06/16/19 10:00 Assessment: 06/19/19 09:54 withdrawal symptom Plan: continue detox methadone and valium regimen
[2019-06-19] MEDS ORDERED: METHADONE (DETOX) 10 MG, METHADONE (DETOX) 5 MG PO ONE (10:00)
[2019-06-19] MEDS: metoPROLOL SUCCINATE 25 MG TAB.SR.24H (FP) PO SCH (10:07)
[2019-06-19] MEDS: APIXABAN 5 MG TABLET PO SCH ×2 (10:07→21:02)
[2019-06-19] MEDS: LISINOPRIL 10 MG TABLET (FP) PO SCH (10:07)
[2019-06-19] MEDS: ASPIRIN 81 MG CHEWABLE TABLETS PO SCH (10:07)
[2019-06-19] MEDS: PRENATAL VITAMINS W/ FOLIC ACID TABLET (FP) PO SCH (10:07)
[2019-06-19] MEDS: NICOTINE 21 MG/24 HOURS TOPICAL PATCH TD SCH (10:08)
[2019-06-19] MEDS ORDERED: METHOCARBAMOL 500 MG TABLET PO PRN (10:22)
[2019-06-19] MEDS: hydrOXYzine PAMOATE 25 MG CAPSULE (FP) PO PRN ×2 (11:38→17:29)
[2019-06-19] MEDS: QUEtiapine FUMARATE 50 MG TABLET PO PRN (21:02)
[2019-06-19] MEDS: THIAMINE HCL 100 MG TABLET (FP) PO SCH (21:02)
[2019-06-20] MEDS: hydrOXYzine PAMOATE 25 MG CAPSULE (FP) PO PRN ×3 (06:14→21:32)
[2019-06-20] MEDS: ASPIRIN 81 MG CHEWABLE TABLETS PO SCH (09:50)
[2019-06-20] MEDS: NICOTINE 21 MG/24 HOURS TOPICAL PATCH TD SCH (09:50)
[2019-06-20] MEDS: PRENATAL VITAMINS W/ FOLIC ACID TABLET (FP) PO SCH (09:50)
[2019-06-20] MEDS: APIXABAN 5 MG TABLET PO SCH ×2 (09:50→21:32)
[2019-06-20] MEDS: LISINOPRIL 10 MG TABLET (FP) PO SCH (09:50)
[2019-06-20] MEDS: metoPROLOL SUCCINATE 25 MG TAB.SR.24H (FP) PO SCH (09:50)
[2019-06-20] MEDS ORDERED: METHADONE HCL 10 MG TABLET (FOR DETOX USE ONLY) PO ONE (10:00)
--- NOTE | 2019-06-20 10:29 | PN ---
[facility] CIWA - CIWA Score Nausea/Vomitin-No Nausea/No Vomiting Muscle Tremors: 1-None Visible, but [place] Anxiety: 1-Mildly Anxious Agitation: 1-Slight > Activity Paroxysmal Sweats: No Perspiration Orientation: 0-Oriented Tacttile Disturbances: 0-None Auditory Disturbances: 0-None Visual Disturbances: 0-None Headache: 1-Very Mild CIWA-Ar Total Score: 4 S COWS - Scale Resting Pulse: 1= [place] 81-100 Sweatin= No chills or Flushing Restless Observation: 0= Sits Still Pupil Size: 0= Normal to Room Light Bone or Joint Aches: 1= Mild Discomfort Runny Nose/ Eye Tearin= None GI Upset > 30mins: 0= None Tremor Observation of Outstretched Hands: 1= Tremor [place], Not Seen Yawning Observation: 0= None Anxiety or Irritability: 1=Feels Anxious/Irritable Goose Flesh Skin: 0=Smooth Skin COWS Score: 4 S Progress Note (SOAP) Subjective: alert,irritable,anxious,interrupted sleep Objective: 06/20/19 10:29 Vital Signs Temperature 97.9 F 06/20/19 09:31 Pulse Rate 86 06/20/19 09:31 Respiratory Rate 18 06/20/19 09:31 Blood Pressure 131/96 06/20/19 09:31 O2 Sat by Pulse Oximetry (%) Assessment: 06/20/19 10:29 withdrawal symptom Plan: continue detox methadone and valium regimen,discharge in am
[2019-06-20] MEDS: MELATONIN 5 MG TABLETS PO PRN (21:32)
[2019-06-20] MEDS: THIAMINE HCL 100 MG TABLET (FP) PO SCH (21:32)
[2019-06-20] MEDS: QUEtiapine FUMARATE 50 MG TABLET PO PRN (21:34)
[2019-06-20] MEDS ORDERED: cloNIDine HCL 0.1 MG TABLET PO ONE (21:43)
--- NOTE | 2019-06-20 21:43 | PN ---
S Progress Note Note: Vital Signs - 24 hr 06/20/19 06/20/19 06/20/19 00:30 03:30 06:54 Temperature 96.3 F L Pulse Rate 62 Respiratory 18 18 18 Rate Blood Pressure 135/90 06/20/19 06/20/19 06/20/19 09:31 13:40 17:19 Temperature 97.9 F 99.1 F 97.5 F L Pulse Rate 86 76 82 Respiratory 18 18 18 Rate Blood Pressure 131/96 143/97 136/94 06/20/19 20:24 Temperature 98.2 F Pulse Rate 74 Respiratory 18 Rate Blood Pressure 144/100 clonidine x 1 ordered
[2019-06-21] MEDS ORDERED: METHADONE HCL 5 MG TABLET (FOR DETOX USE ONLY) PO ONE (06:00)
[2019-06-21 06:12] VITALS: BP 153/93; PULSE 68; TEMP 96.4
--- NOTE | 2019-06-21 08:40 | DS ---
[facility] Detox Discharge Summary Admission Date: 06/16/19 Discharge Date: 06/21/19 - History Present History: Alcohol Dependence, Cocaine Dependence, Opioid Dependence - Physical Exam Results Vital Signs: Vital Signs Temperature 96.4 F L 06/21/19 06:12 Pulse Rate 68 06/21/19 06:12 Respiratory Rate 18 06/21/19 06:12 Blood Pressure 153/93 06/21/19 06:12 O2 Sat by Pulse Oximetry (%) Pertinent Admission Physical Exam Findings: pt arrived in withdrawals Vital Signs Temperature 96.4 F L 06/21/19 06:12 Pulse Rate 68 06/21/19 06:12 Respiratory Rate 18 06/21/19 06:12 Blood Pressure 153/93 06/21/19 06:12 O2 Sat by Pulse Oximetry (%) Laboratory Tests 06/16/19 06/16/19 06/16/19 10:00 10:00 10:00 WBC 4.1 RBC 4.10 Hgb 13.3 Hct 39.9 MCV 97.5 H MCH 32.5 MCHC 33.4 RDW 14.6 Plt Count 226 MPV 8.7 Sodium 141 Potassium 3.9 Chloride 106 Carbon Dioxide 33 H Anion Gap 2 L BUN 14.6 Creatinine 1.0 Est GFR (CKD-EPI)AfAm 99.15 Est GFR (CKD-EPI)NonAf 85.55 POC Glucometer Random Glucose 49 L* Fasting Glucose Hemoglobin A1c % Calcium 9.1 Total Bilirubin 0.6 AST 17 ALT 21 Alkaline Phosphatase 70 Total Protein 7.2 Albumin 3.8 RPR Titer Nonreactive 06/18/19 06/18/19 06/20/19 08:00 08:00 06:14 WBC RBC Hgb Hct MCV MCH MCHC RDW Plt Count MPV Sodium Potassium Chloride Carbon Dioxide Anion Gap BUN Creatinine Est GFR (CKD-EPI)AfAm Est GFR (CKD-EPI)NonAf POC Glucometer 115 Random Glucose Fasting Glucose 79 Hemoglobin A1c % 5.2 Calcium Total Bilirubin AST ALT Alkaline Phosphatase Total Protein Albumin RPR Titer 06/21/19 05:18 WBC RBC Hgb Hct MCV MCH MCHC RDW Plt Count MPV Sodium Potassium Chloride Carbon Dioxide Anion Gap BUN Creatinine Est GFR (CKD-EPI)AfAm Est GFR (CKD-EPI)NonAf POC Glucometer 87 Random Glucose Fasting Glucose Hemoglobin A1c % Calcium Total Bilirubin AST ALT Alkaline Phosphatase Total Protein Albumin RPR Titer today pt is aaox3 ambulating no acute distress - Treatment Hospital Course: Detox Protocol Followed, Detoxed Safely, Responded well, Discharged Condition Good, Rehab Referral Accepted Patient has Accepted a Rehab Referral to: pt referred to [facility] - Medication Discharge Medications: Ambulatory Orders Aspirin [ASA -] 81 mg PO DAILY 11/07/18 Apixaban [Eliquis -] 5 mg PO BID #60 tablet 03/21/19 Lisinopril [Prinivil] 10 mg PO DAILY #30 tablet 03/21/19 Metoprolol Succinate [Toprol XL -] 25 mg PO DAILY #30 tab.sr.24h 03/21/19 Naloxone HCl [Narcan] 4 mg NS ASDIR PRN #1 spray 06/03/19 - Diagnosis (1) Nicotine dependence Current Visit: Yes Status: Chronic Qualifiers: Nicotine product type: cigarettes Substance use status: uncomplicated Qualified Code(s): F17.210 - Nicotine dependence, cigarettes, uncomplicated (2) Nonischemic cardiomyopathy Current Visit: Yes Status: Acute (3) Alcohol dependence with withdrawal, uncomplicated Current Visit: Yes Status: Chronic (4) Cardiac defibrillator in place Current Visit: Yes Status: Chronic (5) Cocaine abuse Current Visit: Yes Status: Chronic (6) HTN (hypertension) Current Visit: Yes Status: Chronic Qualifiers: Hypertension type: essential hypertension Qualified Code(s): I10 - Essential (primary) hypertension (7) Hearing decreased Current Visit: Yes Status: Chronic Qualifiers: Laterality: bilateral Qualified Code(s): H91.93 - Unspecified hearing loss , bilateral (8) History of stroke Current Visit: Yes Status: Chronic (9) Opioid dependence with withdrawal Current Visit: Yes Status: Chronic (10) Cardiology follow-up encounter Current Visit: No Status: Acute (11) Old cerebrovascular accident (CVA) without late effect Current Visit: No Status: Acute (12) Opioid dependence, uncomplicated Current Visit: Yes Status: Chronic (13) Alcohol consumption two to four days per week Current Visit: No Status: Chronic - AMA Did Patient Leave Against Medical Advice: No
[2019-06-21] MEDS: ASPIRIN 81 MG CHEWABLE TABLETS PO SCH (09:04)
[2019-06-21] MEDS: NICOTINE 21 MG/24 HOURS TOPICAL PATCH TD SCH (09:04)
[2019-06-21] MEDS: PRENATAL VITAMINS W/ FOLIC ACID TABLET (FP) PO SCH (09:04)
[2019-06-21] MEDS: LISINOPRIL 10 MG TABLET (FP) PO SCH (09:04)
[2019-06-21] MEDS: metoPROLOL SUCCINATE 25 MG TAB.SR.24H (FP) PO SCH (09:04)
[2019-06-21] MEDS: APIXABAN 5 MG TABLET PO SCH (09:04)
== END 2019-06-21 09:11 | disposition home or self-care (01) | DRG 897 ==
LOC: YASAS 08:10 → Y6N 09:48
PROVIDERS: ADMIT Allergy & Immunology; ATTEND Allergy & Immunology
PROC: HZ2ZZZZ Detoxification Services for Substance Abuse Treatment (ICD-10-PCS; principal; 2019-06-16)
DX: F11.23 Opioid dependence with withdrawal (principal); F14.20 Cocaine dependence, uncomplicated; I42.9 Cardiomyopathy, unspecified; F10.230 Alcohol dependence with withdrawal, uncomplicated; F17.210 Nicotine dependence, cigarettes, uncomplicated; I10 Essential (primary) hypertension; Z95.810 Presence of automatic (implantable) cardiac defibrillator; H91.93 Unspecified hearing loss, bilateral; N40.1 Benign prostatic hyperplasia with lower urinary tract symptoms; R35.1 Nocturia; I69.834 Monoplegia of upper limb following other cerebrovascular disease affecting left non-dominant side; Z88.6 Allergy status to analgesic agent; Z91.02 Food additives allergy status; Z09 Encounter for follow-up examination after completed treatment for conditions other than malignant neoplasm
CPT/HCPCS: 36415; 80053; 82947; 82962; 83036; 85027; 86593; J0735

== ENCOUNTER 2019-07-04 08:06 | Inpatient (IN) | payer OTHER ==
[2019-07-04 08:29] VITALS: BMI 22.1
--- NOTE | 2019-07-04 08:57 | HP ---
COWS - Scale Resting Pulse: 0= [place] 80 or Below Sweatin=Flushed/Facial Moisture Restless Observation: 1= Difficult to Sit Still Pupil Size: 1= Pupils >than Normal Bone or Joint Aches: 4=Acute Joint/Muscle Pain Runny Nose/ Eye Tearin= Runny Nose/Eyes GI Upset > 30mins: 1= Stomach Cramp Tremor Observation: 1= Tremor [place], Not Seen Yawning Observation: 1= 1-2x During Session Anxiety or Irritability: 1=Feels Anxious/Irritable Goose Flesh Skin: 3=[place] COWS Score: 17 CIWA Score Nausea/Vomitin-No Nausea/No Vomiting - Admission Criteria OASAS Guidelines: Admission for Medically Managed Detox: Requires at least one of the followin. CIWA greater than 12 2. Seizures within the past 24 hours 3. Delirium tremens within the past 24 hours 4. Hallucinations within the past 24 hours 5. Acute intervention needed for co occurring medical disorder 6. Acute intervention needed for co occurring psychiatric disorder 7. Severe withdrawal that cannot be handled at a lower level of care (continued vomiting, continued diarrhea, abnormal vital signs) requiring intravenous medication and/or fluids 8. Admitting History and Physical - Admission Chief Complaint: " I got to stop using and I started using right after I left here." History of Present Illness: 53 yo gentleman here for detox from opiates and alcohol, also using cocaine. This is one of multiple admissions for treatment - last here 06/16/19 for detox - states his insurance would not cover rehab and he relapsed within a few days of discharge. He was referred to [facility] and went for intake on 06/27/19 but was turned away due to no available openings. He was then referred to [facility] for OTP or Suboxone but they would not take him with Medicare alone. He has now applied for Medicaid about 2 weeks ago and this time once he completes detox and rehab he will follow up to an MAT - either methadone or suboxone. Denies seizures or overdose, but does have black outs. Usually drinks first thing in the morning to quell symptoms and uses heroin all day - denies using benzo separately (urine tox + bzo) and thinks it is cut into cocaine or heroin. He lives with his fiance, is on disability. He is taking 1.5 grams of heroin per day and last used yesterday. Denies overdoses in the past. PMH: Stroke 2013, HTN, Defibrillator implanted 2013 Psurg: None He is domiciled but unemployed on disability. 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 Cardiovascular: Yes: Murmur Pulmonary: Yes: Bronchitis Psych: Yes: Other Musculoskeletal: Yes: Other (weakness) - Past Surgical History Past Surgical History: Yes: None - Advance Directives Advance Directives: No: Living Will, Health Care Proxy, DNR - Smoking History Smoking history: Current every day smoker Have you smoked in the past 12 months: Yes Aproximately how many cigarettes per day: 20 If you are a former smoker, when did you quit?: one month ago - Alcohol/Substance Use Hx Alcohol Use: Yes (4 shots a day of vodka or one pint of vodka) Number of Drinks Daily: 7 Date of Last Use: 06/03/14 - Social History Usual Living Arrangement: Yes: With Significant Other, Other Do you think of yourself as: Straight/Heterosexual ADL: Support Services Occupation: disabled due to stroke in 2013 History of Recent Travel: No Admission [facility] Allergies/Adverse Reactions: Allergies Allergy/AdvReac Type Severity Reaction Status Date / Time lactose Allergy Intermediate Vomiting Verified 07/04/19 08:21 ibuprofen AdvReac Intermediate Nausea Verified 07/04/19 08:21 - Ebola screening Have you traveled outside of the country in the last 21 days: No (N) Have you had contact with anyone from an Ebola affected area: No Have you been sick,other than usual withdrawal symptoms: No Do you have a fever: No Patient History - Patient Medical History Hx Anemia: No Hx Asthma: No Hx Chronic Obstructive Pulmonary Disease (COPD): No Hx Cancer: No (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 BPH nocturia) Hx Sexually Transmitted Disorders: No Hx Renal Disease (ESRD): No Hx Thyroid Disease: No Hx Human Immunodeficiency Virus (HIV): No (last 09/12) Hx Hepatitis C: No Hx Depression: No Hx Suicide Attempt: No Hx Bipolar Disorder: No Hx Schizophrenia: No - Patient Surgical History Past Surgical History: Yes Hx Neurologic Surgery: No Hx Cataract Extraction: No Hx Cardiac Surgery: Yes (Implanted defibrillator 2013; excision mediasinal myxoid tumor 2014 at [facility]) Hx Lung Surgery: No Hx Breast Surgery: No Hx Breast Biopsy: No Hx Abdominal Surgery: No Hx Appendectomy: No Hx Cholecystectomy: No Hx Genitourinary Surgery: No Hx Section: No Hx Orthopedic Surgery: Yes (right shuolder ) Anesthesia Reaction: No - PPD History Previous Implant?: Yes Documented Results: Negative w/proof Implanted On Prior [facility] Admission?: Yes Date: 11/09/18 Results: 0mm PPD to be Administered?: No - Smoking Cessation Smoking history: Current every day smoker Have you smoked in the past 12 months: Yes Aproximately how many cigarettes per day: 20 If you are a former smoker, when did you quit?: one month ago Hx Chewing Tobacco Use: No Initiated information on smoking cessation: Yes 'Breaking Loose' booklet given: 07/04/19 - Substances abused Heroin Substance route: Inhalation Frequency: Daily Amount used: 13 bags Age of first use: 20 Date of last use: 07/03/19 Cocaine Substance route: Inhalation Frequency: 1-3 times last 30 days Amount used: $20 Age of first use: 21 Date of last use: 06/15/19 Alcohol Substance route: Oral Frequency: Daily Amount used: 4 shots of vodka Age of first use: 15 Date of last use: 07/03/19 Admission Physical Exam S - Vital Signs Vital Signs: Vital Signs - 24 hr 07/04/19 08:24 Temperature 98.0 F Pulse Rate 65 Respiratory 20 Rate Blood Pressure 144/93 - Physical General Appearance: Yes: Moderate Distress, Alcohol on Breath, Thin, Irritable, Sweating, Anxious HEENTM: Yes: EOMI, Hearing grossly Normal, Normal ENT Inspection, Normocephalic , Normal Voice, MAILE, Pharynx Normal, Tm's normal Respiratory: Yes: Chest Non-Tender, Lungs Clear, Normal Breath Sounds, No Respiratory Distress, No Accessory Muscle Use Neck: Yes: No masses,lesions,Nodules, Trachea in good position Breast: Yes: Within Normal Limits Cardiology: Yes: Regular Rhythm, Regular Rate, S1, S2 Abdominal: Yes: Normal Bowel Sounds, Non Tender, Flat, Soft Genitourinary: Yes: Within Normal Limits Back: Yes: Normal Inspection Musculoskeletal: Yes: full range of Motion, Gait Steady, Pelvis Stable Extremities: Yes: Normal Capillary Refill, Normal Inspection, Normal Range of Motion, Non-Tender 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, Fully Oriented, Alert, Motor Strength 5/5, Normal Mood/Affect, Normal Response Integumentary: Yes: Normal Color, Warm Lymphatic: Yes: Within Normal Limits - Diagnostic (1) Nonischemic cardiomyopathy Current Visit: Yes Status: Acute (2) Old cerebrovascular accident (CVA) without late effect Current Visit: Yes Status: Acute (3) Alcohol dependence with withdrawal, uncomplicated Current Visit: Yes Status: Chronic (4) Cardiac defibrillator in place Current Visit: Yes Status: Chronic (5) Cocaine abuse Current Visit: Yes Status: Chronic (6) HTN (hypertension) Current Visit: Yes Status: Chronic Qualifiers: Hypertension type: essential hypertension Qualified Code(s): I10 - Essential (primary) hypertension (7) History of stroke Current Visit: Yes Status: Chronic Comment: some left arm weakness (8) Nicotine dependence Current Visit: Yes Status: Chronic Qualifiers: Nicotine product type: cigarettes Substance use status: uncomplicated Qualified Code(s): F17.210 - Nicotine dependence, cigarettes, uncomplicated (9) Opioid dependence with withdrawal Current Visit: Yes Status: Chronic Screened but not Admitted - Documentation of Visit Screened but not Admitted: No Breathalyzer - Breathalyzer Breathalyzer: 0.004 Urine Drug Screen - Test Device Lot number: [id number] Expiration date: 02/20/21 - Control Is test valid?: Yes - Results Drug screen NEGATIVE: No Urine drug screen results: DALTON-Cocaine, FEN-Fentanyl, MOP-Opiates, BZO- Benzodiazepines Inpatient Rehab Admission - Rehab Decision to Admit Inpatient rehab admission?: No
[2019-07-04] MEDS ORDERED: MAGNESIUM HYDROX 2400MG/30ML ORAL SUSPENSION 30 ML CUP PO PRN (09:04)
[2019-07-04] MEDS ORDERED: cloNIDine HCL 0.1 MG TABLET PO PRN (09:04)
[2019-07-04] MEDS ORDERED: hydrOXYzine PAMOATE 25 MG CAPSULE (FP) PO PRN (09:04)
[2019-07-04] MEDS ORDERED: MENTHOL/PHENOL 1 EACH UD MM PRN (09:04)
[2019-07-04] MEDS ORDERED: ACETAMINOPHEN 325 MG TABLET (FP) PO PRN ×2 (09:04)
[2019-07-04] MEDS ORDERED: MAG HYDROX/AL HYDROX/SIMETH 30 ML UNIT-DOSE CUP PO PRN (09:04)
[2019-07-04] MEDS ORDERED: BISMUTH SUBSALICYLATE 262 MG/15 ML BTL PO PRN (09:04)
[2019-07-04] MEDS ORDERED: IBUPROFEN 400 MG TABLET (FP) PO PRN (09:04)
[2019-07-04] MEDS ORDERED: METHOCARBAMOL 500 MG TABLET PO PRN (09:04)
[2019-07-04] MEDS ORDERED: MAGNESIUM CITRATE 300 ML BOTTLE PO PRN (09:04)
[2019-07-04] MEDS ORDERED: LISINOPRIL 20 MG TABLET (FP) PO ONE (09:10)
[2019-07-04] MEDS ORDERED: METHADONE HCL 10 MG TABLET (FOR DETOX USE ONLY) PO ONE (09:35)
--- NOTE | 2019-07-04 10:42 | EKG ---
Test Reason : Blood Pressure : / mmHG Vent. Rate : 051 BPM Atrial Rate : 051 BPM P-R Int : 180 ms QRS Dur : 088 ms QT Int : 446 ms P-R-T Axes : 052 036 047 degrees QTc Int : 411 ms SINUS BRADYCARDIA OTHERWISE NORMAL ECG WHEN COMPARED WITH ECG OF 07-NOV-2018 09:08, NO SIGNIFICANT CHANGE WAS FOUND Confirmed by VASQUEZ WOODSON MD ([id number]) on 07/04/2019 10:41:46 AM Referred By: Confirmed By:VASQUEZ WOODSON MD
[2019-07-04] MEDS: LORazepam 2 MG TABLET PO SCH ×3 (11:02→22:24)
[2019-07-04] MEDS: HYDROCHLOROTHIAZIDE 12.5 MG CAPSULE (FP) PO SCH (11:03)
[2019-07-04] MEDS: NICOTINE 14 MG/24 HOURS TOPICAL PATCH TD SCH (11:03)
[2019-07-04] MEDS: PRENATAL VITAMINS W/ FOLIC ACID TABLET (FP) PO SCH (11:03)
[2019-07-04] MEDS: APIXABAN 5 MG TABLET PO SCH ×2 (11:34→22:24)
[2019-07-04 12:37] LABS: HEMATOCRIT 40.9 % (35.4-49); HEMOGLOBIN 13.7 GM/dL (11.7-16.9); MCH 32.5 pg (25.7-33.7); MCHC 33.6 g/dl (32.0-35.9); MEAN CELL VOLUME 96.7 fl (80-96); MEAN PLT VOLUME 8.5 fl (7.5-11.1); PLATELET COUNT 230 K/MM3 (134-434); RBC 4.23 M/mm3 (4.00-5.60); RDW 14.6 % (11.9-15.9)
[2019-07-04 13:00] LABS: BILIRUBIN,TOTAL 0.3 mg/dL (0.2-1); BLOOD UREA NITROGEN 14.2 mg/dL (7-18); CALCIUM 9.2 mg/dL (8.5-10.1); POTASSIUM 3.7 mmol/L (3.5-5.1); TOT PROT 7.4 g/dl (6.4-8.2)
[2019-07-04] MEDS: LORazepam 1 MG TABLET PO PRN (15:02)
[2019-07-04] MEDS: THIAMINE HCL 100 MG TABLET (FP) PO SCH (22:24)
[2019-07-04] MEDS: MELATONIN 5 MG TABLETS PO PRN (22:24)
[2019-07-05] MEDS: LORazepam 2 MG TABLET PO SCH ×4 (06:38→22:30)
[2019-07-05] MEDS ORDERED: METHADONE HCL 10 MG TABLET (FOR DETOX USE ONLY) ONE (09:47)
[2019-07-05] MEDS ORDERED: METHADONE HCL 5 MG TABLET (FOR DETOX USE ONLY) ONE (09:47)
[2019-07-05] MEDS ORDERED: METHADONE (DETOX) 20 MG, METHADONE (DETOX) 5 MG PO ONE (10:00)
[2019-07-05] MEDS ORDERED: PATIENT'S OWN MEDICATION (NON-FORMULARY) (Lisinopril/Hydrochlorothiazide [Lisinopril-Hctz PO SCH (10:00)
[2019-07-05] MEDS: PRENATAL VITAMINS W/ FOLIC ACID TABLET (FP) PO SCH (11:03)
[2019-07-05] MEDS: APIXABAN 5 MG TABLET PO SCH ×2 (11:03→22:31)
[2019-07-05] MEDS: HYDROCHLOROTHIAZIDE 12.5 MG CAPSULE (FP) PO SCH ×2 (11:03→11:04)
[2019-07-05] MEDS: ASPIRIN COATED 81 MG TABLET.EC PO SCH (11:04)
[2019-07-05] MEDS: NICOTINE 14 MG/24 HOURS TOPICAL PATCH TD SCH (11:05)
[2019-07-05] MEDS: LISINOPRIL 20 MG TABLET (FP) PO SCH (11:30)
--- NOTE | 2019-07-05 13:05 | PN ---
S CIWA - CIWA Score Nausea/Vomitin Muscle Tremors: 2 Anxiety: 2 Agitation: 2 Paroxysmal Sweats: No Perspiration Orientation: 0-Oriented Tacttile Disturbances: 1-Very Mild Itch/Numbness Auditory Disturbances: 0-None Visual Disturbances: 0-None Headache: 2-Mild CIWA-Ar Total Score: 11 BHS COWS - Scale Resting Pulse: 0= [place] 80 or Below Sweatin= No chills or Flushing Restless Observation: 1= Difficult to Sit Still Pupil Size: 1= Pupils >than Normal Bone or Joint Aches: 1= Mild Discomfort Runny Nose/ Eye Tearin= Nasal Congestion GI Upset > 30mins: 1= Stomach Cramp Tremor Observation of Outstretched Hands: 2= Slight Tremor Visible Yawning Observation: 1= 1-2x During Session Anxiety or Irritability: 2=Irritable/Anxious Goose Flesh Skin: 0=Smooth Skin COWS Score: 10 BHS Progress Note (SOAP) Subjective: alert,irritable,anxious,interrupted sleep,tremor,pain in the body Objective: 07/05/19 13:02 Vital Signs Temperature 98.6 F 07/05/19 09:37 Pulse Rate 67 07/05/19 09:37 Respiratory Rate 18 07/05/19 09:37 Blood Pressure 152/111 H 07/05/19 09:37 O2 Sat by Pulse Oximetry (%) 07/05/19 13:03 Laboratory Last Values WBC 3.0 K/mm3 (4.0-10.0) L 07/04/19 09:20 RBC 4.23 M/mm3 (4.00-5.60) 07/04/19 09:20 Hgb 13.7 GM/dL (11.7-16.9) 07/04/19 09:20 Hct 40.9 % (35.4-49) 07/04/19 09:20 MCV 96.7 fl (80-96) H 07/04/19 09:20 MCH 32.5 pg (25.7-33.7) 07/04/19 09:20 MCHC 33.6 g/dl (32.0-35.9) 07/04/19 09:20 RDW 14.6 % (11.9-15.9) 07/04/19 09:20 Plt Count 230 K/MM3 (134-434) 07/04/19 09:20 MPV 8.5 fl (7.5-11.1) 07/04/19 09:20 Sodium 142 mmol/L (136-145) 07/04/19 09:20 Potassium 3.7 mmol/L (3.5-5.1) 07/04/19 09:20 Chloride 105 mmol/L (98-107) 07/04/19 09:20 Carbon Dioxide 34 mmol/L (21-32) H 07/04/19 09:20 Anion Gap 3 MMOL/L (8-16) L 07/04/19 09:20 BUN 14.2 mg/dL (7-18) 07/04/19 09:20 Creatinine 1.0 mg/dL (0.55-1.3) 07/04/19 09:20 Est GFR (CKD-EPI)AfAm 99.15 07/04/19 09:20 Est GFR (CKD-EPI)NonAf 85.55 07/04/19 09:20 Random Glucose 71 mg/dL (74-106) L 07/04/19 09:20 Calcium 9.2 mg/dL (8.5-10.1) 07/04/19 09:20 Total Bilirubin 0.3 mg/dL (0.2-1) 07/04/19 09:20 AST 12 U/L (15-37) L 07/04/19 09:20 ALT 23 U/L (13-61) 07/04/19 09:20 Alkaline Phosphatase 63 U/L (45-117) 07/04/19 09:20 Total Protein 7.4 g/dl (6.4-8.2) 07/04/19 09:20 Albumin 4.0 g/dl (3.4-5.0) 07/04/19 09:20 RPR Titer Nonreactive (NONREACTIVE) 07/04/19 09:20 Assessment: 07/05/19 13:05 withdrawal symptom Plan: continue detox methadone and ativan regimen,
[2019-07-05] MEDS: LORazepam 1 MG TABLET PO PRN (14:01)
[2019-07-05] MEDS: THIAMINE HCL 100 MG TABLET (FP) PO SCH (22:30)
[2019-07-05] MEDS: MELATONIN 5 MG TABLETS PO PRN (22:31)
[2019-07-06] MEDS: LORazepam 1 MG TABLET PO SCH ×4 (07:21→22:46)
[2019-07-06] MEDS ORDERED: METHADONE HCL 10 MG TABLET (FOR DETOX USE ONLY) PO ONE (10:00)
[2019-07-06] MEDS: NICOTINE 14 MG/24 HOURS TOPICAL PATCH TD SCH (10:32)
[2019-07-06] MEDS: APIXABAN 5 MG TABLET PO SCH ×2 (10:33→22:46)
[2019-07-06] MEDS: PRENATAL VITAMINS W/ FOLIC ACID TABLET (FP) PO SCH (10:33)
[2019-07-06] MEDS: HYDROCHLOROTHIAZIDE 12.5 MG CAPSULE (FP) PO SCH ×2 (10:33)
[2019-07-06] MEDS: LISINOPRIL 20 MG TABLET (FP) PO SCH (10:33)
[2019-07-06] MEDS: ASPIRIN COATED 81 MG TABLET.EC PO SCH (10:34)
[2019-07-06] MEDS ORDERED: P-EPHED 60MG/TRIPROLIDI 2.5MG TABLET PO PRN (12:01)
--- NOTE | 2019-07-06 12:01 | PN ---
[facility] CIWA - CIWA Score Nausea/Vomitin-No Nausea/No Vomiting Muscle Tremors: 3 Anxiety: 2 Agitation: 3 Paroxysmal Sweats: 2 Orientation: 0-Oriented Tacttile Disturbances: 0-None Auditory Disturbances: 0-None Visual Disturbances: 0-None Headache: 0-None Present CIWA-Ar Total Score: 10 S COWS - Scale Resting Pulse: 0= OK 80 or Below Sweatin= Chills/Flushing Restless Observation: 1= Difficult to Sit Still Pupil Size: 0= Normal to Room Light Bone or Joint Aches: 2= Severe Diffuse Aches Runny Nose/ Eye Tearin= Runny Nose/Eyes GI Upset > 30mins: 0= None Tremor Observation of Outstretched Hands: 2= Slight Tremor Visible Yawning Observation: 0= None Anxiety or Irritability: 1=Feels Anxious/Irritable Goose Flesh Skin: 3=Piloerection COWS Score: 12 S Progress Note (SOAP) Subjective: agitation sweats teary eyes running nose body aches shakes Objective: 07/06/19 11:57 Vital Signs Temperature 97.4 F L 07/06/19 10:25 Pulse Rate 62 07/06/19 10:25 Respiratory Rate 16 07/06/19 10:25 Blood Pressure 144/96 07/06/19 10:25 O2 Sat by Pulse Oximetry (%) Laboratory Tests 07/04/19 07/04/19 07/04/19 09:20 09:20 09:20 WBC 3.0 L RBC 4.23 Hgb 13.7 Hct 40.9 MCV 96.7 H MCH 32.5 MCHC 33.6 RDW 14.6 Plt Count 230 MPV 8.5 Sodium 142 Potassium 3.7 Chloride 105 Carbon Dioxide 34 H Anion Gap 3 L BUN 14.2 Creatinine 1.0 Est GFR (CKD-EPI)AfAm 99.15 Est GFR (CKD-EPI)NonAf 85.55 Random Glucose 71 L Calcium 9.2 Total Bilirubin 0.3 AST 12 L ALT 23 Alkaline Phosphatase 63 Total Protein 7.4 Albumin 4.0 RPR Titer Nonreactive aaox3 ambulating no acute distress Assessment: 07/06/19 12:00 withdrawals Plan: continue detox increase fluids acitifed prn ocean spray roboxin prn
[2019-07-06] MEDS ORDERED: SODIUM CHLORIDE NASAL SPRAY 44 ML BOTTLE NS PRN (12:05)
[2019-07-06] MEDS: LORazepam 1 MG TABLET PO PRN (13:58)
[2019-07-06] MEDS: MELATONIN 5 MG TABLETS PO PRN (22:47)
[2019-07-06] MEDS: THIAMINE HCL 100 MG TABLET (FP) PO SCH (22:49)
[2019-07-07] MEDS ORDERED: LORazepam 0.5 MG TABLET PO PRN
[2019-07-07] MEDS ORDERED: LORazepam 0.5 MG TABLET PO SCH (05:00)
--- NOTE | 2019-07-07 09:15 | DS ---
[facility] Detox Discharge Summary Admission Date: 07/04/19 Discharge Date: 07/07/19 - History Present History: Alcohol Dependence, Cocaine Dependence Pertinent Past History: Pt admitted 3 days ago for polysubstance use: detox from opiates and alcohol, also using cocaine. Pt states has to leave today b/c of in family today. Pt states he will go to [facility] methadone [facility]. Has CAD, on multiple meds, has defibrillator. PCP Dr. Kenny. Appt on 07/11. Pt has all meds- does not need refllls - Physical Exam Results Vital Signs: Vital Signs Temperature 98.8 F 07/07/19 06:00 Pulse Rate 57 L 07/07/19 06:31 Respiratory Rate 18 07/07/19 06:31 Blood Pressure 130/76 07/07/19 06:00 O2 Sat by Pulse Oximetry (%) - Treatment Patient has Accepted a Rehab Referral to: [facility] - Medication Discharge Medications: Ambulatory Orders Apixaban [Eliquis -] 5 mg PO BID #60 tablet 03/21/19 Naloxone HCl [Narcan] 4 mg NS ASDIR PRN #1 spray 06/03/19 Aspirin Coated [Ecotrin -] 81 mg PO DAILY 07/04/19 Lisinopril/Hydrochlorothiazide [Lisinopril-Hctz 20-12.5 mg Tab] 1 each PO DAILY 07/04/19 Metoprolol Succinate [Toprol Xl] 50 mg PO DAILY 07/04/19
[2019-07-07 09:39] VITALS: BP 151/94; PULSE 63; TEMP 96.4
[2019-07-07] MEDS: HYDROCHLOROTHIAZIDE 12.5 MG CAPSULE (FP) PO SCH ×2 (09:51)
[2019-07-07] MEDS: LISINOPRIL 20 MG TABLET (FP) PO SCH (09:51)
[2019-07-07] MEDS: ASPIRIN COATED 81 MG TABLET.EC PO SCH (09:52)
[2019-07-07] MEDS: APIXABAN 5 MG TABLET PO SCH (09:52)
[2019-07-07] MEDS ORDERED: METHADONE HCL 5 MG TABLET (FOR DETOX USE ONLY) ONE (09:54)
[2019-07-07] MEDS ORDERED: METHADONE HCL 10 MG TABLET (FOR DETOX USE ONLY) ONE (09:55)
[2019-07-07] MEDS: NICOTINE 14 MG/24 HOURS TOPICAL PATCH TD SCH (09:56)
[2019-07-07] MEDS: PRENATAL VITAMINS W/ FOLIC ACID TABLET (FP) PO SCH (09:56)
[2019-07-07] MEDS ORDERED: METHADONE (DETOX) 10 MG, METHADONE (DETOX) 5 MG PO ONE (10:00)
[2019-07-08] MEDS ORDERED: LORazepam 0.5 MG TABLET PO ONE (05:00)
[2019-07-08] MEDS ORDERED: METHADONE HCL 10 MG TABLET (FOR DETOX USE ONLY) PO ONE (10:00)
[2019-07-09] MEDS ORDERED: METHADONE HCL 5 MG TABLET (FOR DETOX USE ONLY) PO ONE (06:00)
== END 2019-07-07 10:30 | disposition left against medical advice (07) | DRG 894 ==
LOC: YASAS 08:06 → Y6N 09:27
PROVIDERS: ADMIT Allergy & Immunology; ATTEND Allergy & Immunology
PROC: HZ2ZZZZ Detoxification Services for Substance Abuse Treatment (ICD-10-PCS; principal; 2019-07-04)
DX: F11.23 Opioid dependence with withdrawal (principal); F14.20 Cocaine dependence, uncomplicated; I42.8 Other cardiomyopathies; F10.230 Alcohol dependence with withdrawal, uncomplicated; F17.210 Nicotine dependence, cigarettes, uncomplicated; I10 Essential (primary) hypertension; I25.10 Atherosclerotic heart disease of native coronary artery without angina pectoris; E78.00 Pure hypercholesterolemia, unspecified; Z86.73 Personal history of transient ischemic attack (TIA), and cerebral infarction without residual deficits; Z95.810 Presence of automatic (implantable) cardiac defibrillator; Z88.6 Allergy status to analgesic agent; Z91.011 Allergy to milk products
CPT/HCPCS: 36415; 80053; 85027; 86593; 93005; 93010; J0735

== ENCOUNTER 2021-01-20 22:08 | Emergency (ER) | payer OTHER ==
[2021-01-20 22:18] VITALS: BP 115/70; PULSE 70; TEMP 98.5; BMI 23.4
== END 2021-01-21 01:13 | disposition home or self-care (01) ==
LOC: JER 22:08
DX: F10.920 Alcohol use, unspecified with intoxication, uncomplicated (principal)
CPT/HCPCS: 99281-25

== ENCOUNTER 2021-02-10 11:17 | Emergency (ER) | payer OTHER ==
[2021-02-10 11:25] VITALS: BP 136/98; PULSE 83; TEMP 98.8; BMI 23.4
[2021-02-10] MEDS ORDERED: ONDANSETRON 4 MG/2 ML VIAL IVPUSH ONE (12:34)
[2021-02-10] MEDS ORDERED: SODIUM CHLORIDE 0.9% 500 ML INFUS.BAG IV ONE (12:34)
[2021-02-10] MEDS ORDERED: METOCLOPRAMIDE HCL INJECTION 10 MG/2 ML VIAL IVPUSH ONE (12:52)
[2021-02-10] MEDS ORDERED: FAMOTIDINE 20 MG/50 ML IVPB 20 MG/50 ML MG IVPB ONE ×2 (12:53→12:59)
[2021-02-10] MEDS ORDERED: ACETAMINOPHEN 325 MG TABLET (FP) PO ONE (12:53)
[2021-02-10] MEDS ORDERED: METOCLOPRAMIDE HCL INJECTION 10 MG/2 ML VIAL ONE (12:59)
[2021-02-10] MEDS ORDERED: ACETAMINOPHEN 325 MG TABLET (FP) ONE (12:59)
[2021-02-10 13:13] LABS: BASO % 0.3 % (0-2.0); EOS % 0.4 % (0-4.5); HEMATOCRIT 41.8 % (35.4-49); HEMOGLOBIN 13.9 GM/dL (11.7-16.9); LYMPH % 11.9 % (8-40); MCH 32.9 pg (25.7-33.7); MCHC 33.3 g/dl (32.0-35.9); MEAN CELL VOLUME 98.9 fl (80-96); MEAN PLT VOLUME 7.9 fl (7.5-11.1); MONO % 3.8 % (3.8-10.2); NEUT % 83.6 % (42.8-82.8); PLATELET COUNT 196 10^3/uL (134-434); RBC 4.23 M/mm3 (4.00-5.60); RDW 15.1 % (11.9-15.9); WHITE BLOOD COUNT 5.1 K/mm3 (4.0-10.0)
[2021-02-10 13:27] LABS: CHLORIDE 105 mmol/L (98-107); SODIUM 141 mmol/L (136-145)
[2021-02-10 13:29] LABS: ANION GAP 11 MMOL/L (8-16); BLOOD UREA NITROGEN 19.1 mg/dL (7-18); CALCIUM 9.1 mg/dL (8.5-10.1); CO2 25 mmol/L (21-32); GLUCOSE,RANDOM 51 mg/dL (74-106); LIPASE 63 U/L (73-393)
[2021-02-10 13:30] LABS: ALBUMIN 4.4 g/dl (3.4-5.0)
[2021-02-10 13:33] LABS: CREATININE 1.2 mg/dL (0.55-1.3); SGOT/AST 25 U/L (15-37); SGPT/ALT 37 U/L (13-61)
[2021-02-10 13:35] LABS: BILIRUBIN,TOTAL 0.2 mg/dL (0.2-1); TOT PROT 7.8 g/dl (6.4-8.2)
[2021-02-10 13:36] LABS: ALK PHOS 70 U/L (45-117)
== END 2021-02-10 14:30 | disposition left against medical advice (07) ==
LOC: JER 11:17
PROC: 3E033GC Introduction of Other Therapeutic Substance into Peripheral Vein, Percutaneous Approach (ICD-10-PCS; principal; 2021-02-10)
PROC: 3E033GC Introduction of Other Therapeutic Substance into Peripheral Vein, Percutaneous Approach (ICD-10-PCS; 2021-02-10)
DX: R11.2 Nausea with vomiting, unspecified (principal); R51.9 Headache, unspecified
CPT/HCPCS: 36415; 80053; 82550; 83690; 84484; 85025; 99284-25

== ENCOUNTER 2021-02-26 10:00 | Inpatient (IN) | payer OTHER ==
[2021-02-26] MEDS ORDERED: BISMUTH SUBSALICYLATE 524 MG/30 ML PO PRN (11:46)
[2021-02-26] MEDS ORDERED: NICOTINE 10 MG CARTRIDGE (INHALER) IH PRN (11:46)
[2021-02-26] MEDS ORDERED: MAGNESIUM CITRATE 300 ML BOTTLE PO PRN (11:46)
[2021-02-26] MEDS ORDERED: MAGNESIUM HYDROX 2400MG/30ML ORAL SUSPENSION 30 ML CUP PO PRN (11:46)
[2021-02-26] MEDS ORDERED: ONDANSETRON *ODT* 4 MG TABLET SL PRN (11:46)
[2021-02-26] MEDS ORDERED: IBUPROFEN 400 MG TABLET (FP) PO PRN (11:46)
[2021-02-26] MEDS ORDERED: MAG HYDROX/AL HYDROX/SIMETH 30 ML UNIT-DOSE CUP PO PRN (11:46)
[2021-02-26] MEDS ORDERED: cloNIDine HCL 0.1 MG TABLET PO PRN (11:46)
[2021-02-26] MEDS ORDERED: clonazePAM 0.5 MG ODT TABLETS SL PRN (11:46)
[2021-02-26] MEDS ORDERED: ACETAMINOPHEN 325 MG TABLET (FP) PO PRN ×2 (11:46)
[2021-02-26] MEDS ORDERED: MENTHOL/PHENOL 1 EACH UD MM PRN (11:46)
[2021-02-26] MEDS: NICOTINE 14 MG/24 HOURS TOPICAL PATCH TD SCH (13:04)
[2021-02-26] MEDS: PRENATAL VITAMINS W/ FOLIC ACID TABLET (FP) PO SCH (13:04)
[2021-02-26 13:59] LABS: HEMATOCRIT 40.6 % (35.4-49); HEMOGLOBIN 13.8 GM/dL (11.7-16.9); MCH 33.6 pg (25.7-33.7); MCHC 33.9 g/dl (32.0-35.9); MEAN CELL VOLUME 99.3 fl (80-96); MEAN PLT VOLUME 8.4 fl (7.5-11.1); PLATELET COUNT 187 10^3/uL (134-434); RBC 4.09 M/mm3 (4.00-5.60); RDW 14.7 % (11.9-15.9); WHITE BLOOD COUNT 3.3 K/mm3 (4.0-10.0)
[2021-02-26] MEDS ORDERED: hydrOXYzine PAMOATE 25 MG CAPSULE (FP) PO SCH (14:00)
[2021-02-26 14:16] LABS: BLOOD UREA NITROGEN 16.2 mg/dL (7-18)
[2021-02-26 14:18] LABS: TOT PROT 7.6 g/dl (6.4-8.2)
[2021-02-26 14:19] LABS: CREATININE 0.9 mg/dL (0.55-1.3)
[2021-02-26 14:22] LABS: BILIRUBIN,TOTAL 0.9 mg/dL (0.2-1)
[2021-02-26] MEDS: MELATONIN 5 MG TABLETS PO SCH (21:12)
[2021-02-26] MEDS: THIAMINE HCL 100 MG TABLET (FP) PO SCH (21:12)
[2021-02-26] MEDS: APIXABAN 5 MG TABLET PO SCH (21:12)
[2021-02-27] MEDS ORDERED: methaDONE HCL 10 MG TABLET (FOR DETOX USE ONLY) ONE (09:30)
[2021-02-27] MEDS: diazePAM 5 MG TABLET PO PRN ×3 (09:55→19:41)
[2021-02-27] MEDS: APIXABAN 5 MG TABLET PO SCH ×2 (09:56→22:39)
[2021-02-27] MEDS: ROSUVASTATIN CA 10 MG TABLET (FP) PO SCH (09:56)
[2021-02-27] MEDS: LISINOPRIL 20 MG TABLET PO SCH (09:57)
[2021-02-27] MEDS: NICOTINE 14 MG/24 HOURS TOPICAL PATCH TD SCH (10:00)
[2021-02-27] MEDS: ASPIRIN COATED 81 MG TABLET.EC PO SCH (10:01)
[2021-02-27] MEDS: PRENATAL VITAMINS W/ FOLIC ACID TABLET (FP) PO SCH (11:02)
[2021-02-27] MEDS: MELATONIN 5 MG TABLETS PO SCH (22:39)
[2021-02-27] MEDS: hydrOXYzine PAMOATE 25 MG CAPSULE (FP) PO PRN (22:39)
[2021-02-27] MEDS: THIAMINE HCL 100 MG TABLET (FP) PO SCH (22:39)
[2021-02-28] MEDS: diazePAM 5 MG TABLET PO PRN ×3 (07:57→19:07)
[2021-02-28] MEDS ORDERED: methaDONE HCL 10 MG TABLET (FOR DETOX USE ONLY) PO ONE (10:00)
[2021-02-28] MEDS: PRENATAL VITAMINS W/ FOLIC ACID TABLET (FP) PO SCH (10:11)
[2021-02-28] MEDS: ASPIRIN COATED 81 MG TABLET.EC PO SCH (10:11)
[2021-02-28] MEDS: LISINOPRIL 20 MG TABLET PO SCH (10:11)
[2021-02-28] MEDS: ROSUVASTATIN CA 10 MG TABLET (FP) PO SCH (10:11)
[2021-02-28] MEDS: APIXABAN 5 MG TABLET PO SCH ×2 (10:11→21:32)
[2021-02-28] MEDS: NICOTINE 14 MG/24 HOURS TOPICAL PATCH TD SCH (10:12)
[2021-02-28] MEDS: THIAMINE HCL 100 MG TABLET (FP) PO SCH (21:32)
[2021-02-28] MEDS: MELATONIN 5 MG TABLETS PO SCH (21:32)
[2021-03-01] MEDS ORDERED: methaDONE HCL 10 MG TABLET (FOR DETOX USE ONLY) ONE (09:22)
[2021-03-01] MEDS: LISINOPRIL 20 MG TABLET PO SCH (10:58)
[2021-03-01] MEDS: ASPIRIN COATED 81 MG TABLET.EC PO SCH (10:58)
[2021-03-01] MEDS: hydrOXYzine PAMOATE 25 MG CAPSULE (FP) PO PRN ×2 (10:59→18:48)
[2021-03-01] MEDS: APIXABAN 5 MG TABLET PO SCH ×2 (10:59→21:04)
[2021-03-01] MEDS: PRENATAL VITAMINS W/ FOLIC ACID TABLET (FP) PO SCH (10:59)
[2021-03-01] MEDS: ROSUVASTATIN CA 10 MG TABLET (FP) PO SCH (10:59)
[2021-03-01] MEDS: NICOTINE 14 MG/24 HOURS TOPICAL PATCH TD SCH (11:00)
[2021-03-01] MEDS: diazePAM 5 MG TABLET PO PRN ×3 (11:04→20:36)
[2021-03-01] MEDS: THIAMINE HCL 100 MG TABLET (FP) PO SCH (21:04)
[2021-03-01] MEDS: MELATONIN 5 MG TABLETS PO SCH (21:04)
[2021-03-02] MEDS ORDERED: methaDONE HCL 10 MG TABLET (FOR DETOX USE ONLY) PO ONE (10:00)
[2021-03-02] MEDS: METHOCARBAMOL 500 MG TABLET PO PRN ×2 (10:11→17:18)
[2021-03-02] MEDS: LISINOPRIL 20 MG TABLET PO SCH (10:12)
[2021-03-02] MEDS: ROSUVASTATIN CA 10 MG TABLET (FP) PO SCH (10:12)
[2021-03-02] MEDS: PRENATAL VITAMINS W/ FOLIC ACID TABLET (FP) PO SCH (10:12)
[2021-03-02] MEDS: NICOTINE 14 MG/24 HOURS TOPICAL PATCH TD SCH (10:12)
[2021-03-02] MEDS: ASPIRIN COATED 81 MG TABLET.EC PO SCH (10:12)
[2021-03-02] MEDS: APIXABAN 5 MG TABLET PO SCH ×2 (10:14→21:03)
[2021-03-02] MEDS: hydrOXYzine PAMOATE 25 MG CAPSULE (FP) PO PRN ×3 (13:12→21:03)
[2021-03-02] MEDS: MELATONIN 5 MG TABLETS PO SCH (21:03)
[2021-03-02] MEDS: THIAMINE HCL 100 MG TABLET (FP) PO SCH (21:03)
[2021-03-02 23:56] VITALS: BP 139/94; PULSE 64; TEMP 96.8
== END 2021-03-03 07:00 | disposition home or self-care (01) | DRG 897 ==
LOC: YASAS 10:00 → Y3N 11:53
PROVIDERS: ADMIT Allergy & Immunology; ATTEND Allergy & Immunology
PROC: HZ2ZZZZ Detoxification Services for Substance Abuse Treatment (ICD-10-PCS; principal; 2021-02-26)
DX: F11.23 Opioid dependence with withdrawal (principal); I69.354 Hemiplegia and hemiparesis following cerebral infarction affecting left non-dominant side; F17.210 Nicotine dependence, cigarettes, uncomplicated; I10 Essential (primary) hypertension; R01.1 Cardiac murmur, unspecified; Z88.6 Allergy status to analgesic agent; Z91.011 Allergy to milk products; Z91.012 Allergy to eggs; Z79.01 Long term (current) use of anticoagulants; Z95.810 Presence of automatic (implantable) cardiac defibrillator
CPT/HCPCS: 36415; 80053; 85027; 86780; 93005; 93010; C9803; J0735; U0003; U0005

== ENCOUNTER 2023-03-11 20:03 | Inpatient (IN) | payer OTHER ==
[2023-03-11] MEDS ORDERED: SODIUM CHLORIDE 500 ML IV STA (20:43)
[2023-03-11] MEDS ORDERED: ALBUTEROL SO4 2.5/IPRATROPIUM 0.5 INH SOL 3 ML VIAL.NEB. NEB ONE ×2 (20:48→20:55)
[2023-03-11 21:36] LABS: VENOUS BASE EXCESS 1.3 mmol/L (-2-2); VENOUS PCO2 43.5 mmHg (38-52); VENOUS PH 7.4 (7.310-7.410)
[2023-03-11 21:37] LABS: BASO % 0.2 % (0-2.0); HEMATOCRIT 36.9 % (35.4-49); HEMOGLOBIN 12.7 GM/dL (11.7-16.9); LYMPH % 7.3 % (8-40); MCH 31.7 pg (25.7-33.7); MCHC 34.3 g/dl (32.0-35.9); MEAN CELL VOLUME 92.4 fl (80-96); MEAN PLT VOLUME 8.7 fl (7.5-11.1); MONO % 7.8 % (3.8-10.2); NEUT % 84.7 % (42.8-82.8); PLATELET COUNT 121 10^3/uL (134-434); RBC 3.99 M/mm3 (4.00-5.60); RDW 14.1 % (11.9-15.9); WHITE BLOOD COUNT 7.4 K/mm3 (4.0-10.0)
[2023-03-11 21:45] LABS: INR 1.72 (0.83-1.09); PROTHROMBIN TIME (PATIENT) 19.8 SEC (9.7-13.0)
[2023-03-11 21:48] LABS: ACTIVATED PTT 38.4 SECONDS (25.2-36.5)
[2023-03-11 21:56] LABS: POTASSIUM 3.9 mmol/L (3.5-5.1)
[2023-03-11 21:59] LABS: ALBUMIN 3.4 g/dl (3.4-5.0); CALCIUM 8.2 mg/dL (8.5-10.1)
[2023-03-11 22:02] LABS: CREATININE 1.2 mg/dL (0.55-1.3)
[2023-03-11 22:04] LABS: BILIRUBIN,TOTAL 0.8 mg/dL (0.2-1); TOT PROT 6.5 g/dl (6.4-8.2)
[2023-03-11 22:07] LABS: N-TERMINAL BNP 148.8 pg/ml (5-125)
[2023-03-11] MEDS ORDERED: CEFTRIAXONE 1,000 MG in DEXTROSE 5%-WATER - 50 ML IVPB ONE (22:43)
[2023-03-11] MEDS ORDERED: AZITHROMYCIN IVPB 500 MG in DEXTROSE 5%-WATER - 250 ML IVPB ONE (22:43)
[2023-03-11] MEDS ORDERED: SODIUM CHLORIDE 0.9% 500 ML INFUS.BAG IV ONE (22:45)
[2023-03-12] MEDS ORDERED: AZITHROMYCIN IVPB 500 MG/250 ML BAG IVPB ONE (00:25)
[2023-03-12] MEDS ORDERED: CEFTRIAXONE 1 GM/50 ML BAG ONE (00:25)
[2023-03-12] MEDS ORDERED: ALBUTEROL SO4 2.5/IPRATROPIUM 0.5 INH SOL 3 ML VIAL.NEB. NEB PRN (00:37)
[2023-03-12] MEDS ORDERED: ONDANSETRON 4 MG/2 ML VIAL IVPUSH ONE (00:39)
[2023-03-12] MEDS ORDERED: ONDANSETRON 4 MG/2 ML VIAL ONE (00:39)
[2023-03-12] MEDS: ACETAMINOPHEN 325 MG TABLET (FP) PO PRN ×2 (06:16→19:09)
[2023-03-12 09:54] LABS: BASO % 0.1 % (0-2.0); HEMATOCRIT 35.8 % (35.4-49); HEMOGLOBIN 11.7 GM/dL (11.7-16.9); LYMPH % 7.8 % (8-40); MCH 30.8 pg (25.7-33.7); MCHC 32.6 g/dl (32.0-35.9); MEAN CELL VOLUME 94.6 fl (80-96); MEAN PLT VOLUME 9.9 fl (7.5-11.1); MONO % 8.7 % (3.8-10.2); NEUT % 83.4 % (42.8-82.8); PLATELET COUNT 128 10^3/uL (134-434); RBC 3.79 M/mm3 (4.00-5.60); RDW 13.9 % (11.9-15.9); WHITE BLOOD COUNT 7.6 K/mm3 (4.0-10.0)
[2023-03-12] MEDS ORDERED: methaDONE HCL 10 MG TABLET PO SCH ×3 (10:00→11:30)
[2023-03-12 10:12] LABS: POTASSIUM 3.9 mmol/L (3.5-5.1)
[2023-03-12 10:22] LABS: CREATININE 0.7 mg/dL (0.55-1.3)
[2023-03-12 10:23] LABS: BILIRUBIN,TOTAL 1.1 mg/dL (0.2-1)
[2023-03-12 10:24] LABS: TOT PROT 6.1 g/dl (6.4-8.2)
[2023-03-12 10:38] LABS: BLOOD UREA NITROGEN 16.9 mg/dL (7-18)
[2023-03-12] MEDS: LISINOPRIL 20 MG TABLET PO SCH (11:08)
[2023-03-12] MEDS: ASPIRIN COATED 81 MG TABLET.EC PO SCH (11:08)
[2023-03-12] MEDS: APIXABAN 5 MG TABLET PO SCH ×2 (11:09→21:24)
[2023-03-12] MEDS: methaDONE 40 MG, methaDONE 10 MG PO SCH (11:38)
[2023-03-12] MEDS: AZITHROMYCIN IVPB 250 MG in DEXTROSE 5%-WATER - 250 ML IVPB SCH (11:44)
[2023-03-12] MEDS: CEFTRIAXONE 1 GM in DEXTROSE 5%-WATER - 50 ML IVPB SCH (11:44)
[2023-03-12 16:12] LABS: URINE APPEARANCE CLEAR; URINE BILIRUBIN NEGATIVE (NEGATIVE); URINE COLOR YELLOW; URINE GLUCOSE (UA) NEGATIVE (NEGATIVE); URINE KETONE TRACE (NEGATIVE); URINE LEUK ESTERASE NEGATIVE (NEGATIVE); URINE NITRITE NEGATIVE (NEGATIVE); URINE PROTEIN NEGATIVE (NEGATIVE)
[2023-03-12] MEDS: ROSUVASTATIN CA 10 MG TABLET PO SCH (21:23)
[2023-03-12] MEDS: traZODone HCL 50 MG TABLET (FP) PO SCH (21:23)
[2023-03-13] MEDS: ACETAMINOPHEN 325 MG TABLET (FP) PO PRN ×2 (01:10→18:49)
[2023-03-13] MEDS: methaDONE 40 MG, methaDONE 10 MG PO SCH (06:05)
[2023-03-13] MEDS: ASPIRIN COATED 81 MG TABLET.EC PO SCH (10:21)
[2023-03-13] MEDS: LISINOPRIL 20 MG TABLET PO SCH (10:21)
[2023-03-13] MEDS: CEFTRIAXONE 1 GM in DEXTROSE 5%-WATER - 50 ML IVPB SCH (10:21)
[2023-03-13] MEDS: APIXABAN 5 MG TABLET PO SCH ×2 (10:22→22:34)
[2023-03-13] MEDS: AZITHROMYCIN IVPB 250 MG in DEXTROSE 5%-WATER - 250 ML IVPB SCH (11:06)
[2023-03-13 14:39] VITALS: BMI 19.1
[2023-03-13] MEDS: ROSUVASTATIN CA 10 MG TABLET PO SCH (22:34)
[2023-03-13] MEDS: traZODone HCL 50 MG TABLET (FP) PO SCH (22:34)
[2023-03-14] MEDS: methaDONE 40 MG, methaDONE 10 MG PO SCH (06:51)
[2023-03-14] MEDS: ASPIRIN COATED 81 MG TABLET.EC PO SCH (09:21)
[2023-03-14] MEDS: LISINOPRIL 20 MG TABLET PO SCH (09:21)
[2023-03-14] MEDS: APIXABAN 5 MG TABLET PO SCH ×2 (09:21→22:36)
[2023-03-14] MEDS: CEFTRIAXONE 1 GM in DEXTROSE 5%-WATER - 50 ML IVPB SCH (09:22)
[2023-03-14] MEDS: AZITHROMYCIN IVPB 250 MG in DEXTROSE 5%-WATER - 250 ML IVPB SCH (10:44)
[2023-03-14] MEDS ORDERED: guaiFENesin/D-METHORPHAN HB 10 ML UNIT-DOSE CUPS PO PRN (12:48)
[2023-03-14] MEDS: ALBUTEROL SO4 2.5/IPRATROPIUM 0.5 INH SOL 3 ML VIAL.NEB. NEB SCH (20:05)
[2023-03-14] MEDS: ROSUVASTATIN CA 10 MG TABLET PO SCH (22:35)
[2023-03-14] MEDS: traZODone HCL 50 MG TABLET (FP) PO SCH (22:36)
[2023-03-15] MEDS: methaDONE 40 MG, methaDONE 10 MG PO SCH (07:17)
[2023-03-15] MEDS: ALBUTEROL SO4 2.5/IPRATROPIUM 0.5 INH SOL 3 ML VIAL.NEB. NEB SCH ×4 (08:15→20:05)
[2023-03-15] MEDS: APIXABAN 5 MG TABLET PO SCH ×2 (09:07→21:35)
[2023-03-15] MEDS: LISINOPRIL 20 MG TABLET PO SCH (09:07)
[2023-03-15] MEDS: ASPIRIN COATED 81 MG TABLET.EC PO SCH (09:07)
[2023-03-15] MEDS: CEFTRIAXONE 1 GM in DEXTROSE 5%-WATER - 50 ML IVPB SCH (09:07)
[2023-03-15 09:54] LABS: BASO % 0.4 % (0-2.0); EOS % 1.3 % (0-4.5); HEMATOCRIT 34.8 % (35.4-49); HEMOGLOBIN 11.9 GM/dL (11.7-16.9); LYMPH % 24.5 % (8-40); MCHC 34.2 g/dl (32.0-35.9); MEAN CELL VOLUME 93.5 fl (80-96); MEAN PLT VOLUME 8.6 fl (7.5-11.1); MONO % 11.5 % (3.8-10.2); NEUT % 62.3 % (42.8-82.8); PLATELET COUNT 180 10^3/uL (134-434); RBC 3.72 M/mm3 (4.00-5.60); RDW 13.7 % (11.9-15.9); WHITE BLOOD COUNT 3.7 K/mm3 (4.0-10.0)
[2023-03-15 10:11] LABS: POTASSIUM 3.7 mmol/L (3.5-5.1)
[2023-03-15 10:14] LABS: CALCIUM 8.7 mg/dL (8.5-10.1)
[2023-03-15 10:15] LABS: ALBUMIN 2.8 g/dl (3.4-5.0)
[2023-03-15 10:18] LABS: CREATININE 0.9 mg/dL (0.55-1.3)
[2023-03-15 10:19] LABS: BILIRUBIN,TOTAL 0.4 mg/dL (0.2-1)
[2023-03-15] MEDS: AZITHROMYCIN IVPB 250 MG in DEXTROSE 5%-WATER - 250 ML IVPB SCH (10:23)
[2023-03-15] MEDS: traZODone HCL 50 MG TABLET (FP) PO SCH (21:35)
[2023-03-15] MEDS: ROSUVASTATIN CA 10 MG TABLET PO SCH (21:36)
[2023-03-16] MEDS: methaDONE 40 MG, methaDONE 10 MG PO SCH (06:52)
[2023-03-16] MEDS: ALBUTEROL SO4 2.5/IPRATROPIUM 0.5 INH SOL 3 ML VIAL.NEB. NEB SCH ×4 (08:20→20:18)
[2023-03-16] MEDS: CEFTRIAXONE 1 GM in DEXTROSE 5%-WATER - 50 ML IVPB SCH (09:33)
[2023-03-16] MEDS: ASPIRIN COATED 81 MG TABLET.EC PO SCH (09:34)
[2023-03-16] MEDS: APIXABAN 5 MG TABLET PO SCH ×2 (09:34→22:45)
[2023-03-16] MEDS: LISINOPRIL 20 MG TABLET PO SCH (09:34)
[2023-03-16] MEDS: AZITHROMYCIN 250 MG TABLET PO SCH (09:34)
[2023-03-16] MEDS: ROSUVASTATIN CA 10 MG TABLET PO SCH (22:45)
[2023-03-16] MEDS: traZODone HCL 50 MG TABLET (FP) PO SCH (22:45)
[2023-03-17] MEDS: methaDONE 40 MG, methaDONE 10 MG PO SCH (06:07)
[2023-03-17] MEDS: ALBUTEROL SO4 2.5/IPRATROPIUM 0.5 INH SOL 3 ML VIAL.NEB. NEB SCH ×4 (07:46→19:35)
[2023-03-17] MEDS: APIXABAN 5 MG TABLET PO SCH ×2 (10:22→22:26)
[2023-03-17] MEDS: ASPIRIN COATED 81 MG TABLET.EC PO SCH (10:22)
[2023-03-17] MEDS: CEFTRIAXONE 1 GM in DEXTROSE 5%-WATER - 50 ML IVPB SCH (10:22)
[2023-03-17] MEDS: AZITHROMYCIN 250 MG TABLET PO SCH (10:22)
[2023-03-17] MEDS: LISINOPRIL 20 MG TABLET PO SCH (10:22)
[2023-03-17] MEDS: traZODone HCL 50 MG TABLET (FP) PO SCH (22:26)
[2023-03-17] MEDS: ROSUVASTATIN CA 10 MG TABLET PO SCH (22:26)
[2023-03-18] MEDS: methaDONE 40 MG, methaDONE 10 MG PO SCH (06:01)
[2023-03-18 06:58] VITALS: BP 115/79; PULSE 61; RESP 16; TEMP 98.8
[2023-03-18] MEDS: ASPIRIN COATED 81 MG TABLET.EC PO SCH (09:24)
[2023-03-18] MEDS: APIXABAN 5 MG TABLET PO SCH (09:24)
[2023-03-18] MEDS ORDERED: AZITHROMYCIN 250 MG TABLET PO SCH (10:00)
[2023-03-18] MEDS: LISINOPRIL 20 MG TABLET PO SCH (10:52)
== END 2023-03-18 10:30 | disposition home or self-care (01) | DRG 194 ==
LOC: JER 20:03 → JERBED 22:43 → J8W 03-12 03:47
PROVIDERS: ADMIT Internal Medicine; ATTEND Internal Medicine
DX: J18.9 Pneumonia, unspecified organism (principal); F11.20 Opioid dependence, uncomplicated; I69.354 Hemiplegia and hemiparesis following cerebral infarction affecting left non-dominant side; I42.8 Other cardiomyopathies; F14.10 Cocaine abuse, uncomplicated; I10 Essential (primary) hypertension; I25.10 Atherosclerotic heart disease of native coronary artery without angina pectoris; R09.02 Hypoxemia; E78.5 Hyperlipidemia, unspecified; Z95.810 Presence of automatic (implantable) cardiac defibrillator
CPT/HCPCS: 0241U-QW; 36415; 71045-TC-FY; 80053; 81003; 82803; 83605; 83690; 83735; 83880; 84484; 85025; 85379; 85610; 85730; 93005; 93010; 94640; 94761; 99285-25